=== PATIENT | female | born 1975 | race Caucasian/White ===

== ENCOUNTER 2022-06-27 16:08 | Outpatient (REF) | payer BC, OTHER, SELFPAY ==
[2022-07-01 14:39] LABS: H Pylori Breath Test Negative (Negative)
== END 2022-06-27 16:09 | disposition home or self-care (01) ==
LOC: HO.LNP 16:08
PROVIDERS: Visit Provider Physician Assistant
DX: E66.01 Morbid (severe) obesity due to excess calories (principal); I10 Essential (primary) hypertension; Z98.84 Bariatric surgery status
CPT/HCPCS: 83013

== ENCOUNTER 2022-07-09 13:30 | Outpatient (REF) | payer BC, OTHER, SELFPAY ==
[2022-07-09 13:55] LABS: MANUAL DIFF FLAG NO
[2022-07-09 14:53] LABS: Basophils Absolute Auto 0.1 X10*3/uL (0.0-0.2); Basophils Percent Auto 0.5 % (0-2); Eosinophils Absolute Auto 0.2 X10*3/uL (0.0-0.4); Eosinophils Percent Auto 1.5 % (0-4); Hematocrit 39.5 % (37.0-47.0); Hemoglobin 12.6 g/dl (12.0-16.0); Imm Gran Abs Auto 0.06 X10*3/uL (0.00-0.03); Imm Gran Pct Auto 0.5 % (0.0-0.4); Lymphocytes Absolute Auto 3.4 X10*3/uL (1.2-4.9); Lymphocytes Percent Auto 30.6 % (20-40); Mean Corpuscular HGB Conc 31.9 g/dl (31.0-35.0); Mean Corpuscular Hemoglobin 27.9 pg (27.0-33.0); Mean Corpuscular Volume 87.4 fL (80.0-98.0); Mean Platelet Volume 9.4 fL (9.4-12.3); Monocytes Absolute Auto 0.5 X10*3/uL (0.1-1.2); Monocytes Percent Auto 4.1 % (2-11); Neutrophils Percent Auto 62.8 % (45-73); Platelet Count 345 X10*3/uL (160-400); Red Blood Count 4.52 X10*6/uL (4.20-5.50); Red Cell Distribution Width 13.7 % (11.0-16.0); White Blood Count 11.1 X10*3/uL (4.8-10.8)
[2022-07-09 14:56] LABS: Estimated Average Glucose 103 mg/dL; Hemoglobin A1c % 5.2 %
[2022-07-09 15:01] LABS: Alanine Aminotransferase 21 U/L (0-31); Albumin Level 4.3 g/dL (3.5-5.0); Alkaline Phosphatase 75 U/L (39-117); Anion Gap 16 (12-20); Aspartate Amino Transferase 15 U/L (5-31); Bilirubin Total 0.4 mg/dL (0.0-1.0); Blood Urea Nitrogen 14 mg/dL (9-16); C Reactive Protein 1.48 mg/dL (< or = 0.50); Calcium 9.4 mg/dL (8.4-10.2); Carbon Dioxide 25 mmol/L (22-29); Chloride 104 mmol/L (96-108); Cholesterol 208 mg/dL; Estimated Glomerular Filt Rate > 60; Glucose Random 91 mg/dL (60-115); HDL Cholesterol 44 mg/dL; Iron 85 mcg/dL (30-160); LDL Cholesterol Calculated 125 mg/dl; Percent Iron Saturation 23 % (15-50); Potassium 4.5 mmol/L (3.3-5.1); Sodium 140 mmol/L (135-145); Total Iron Binding Capacity 367 mcg/dL (228-428); Triglycerides 197 mg/dL; Unsaturated Iron Binding 282 ug/dL
[2022-07-09 15:30] LABS: Ferritin 115 ng/mL (10-250); TSH reflex Free T4 1.65 uIU/mL (0.32-4.0); Vitamin D 25-OH Total 23.3 ng/mL (>30)
[2022-07-09 15:32] LABS: Folate 5.4 ng/mL (> or = 4.0); Insulin 15 uU/mL (2-29); Vitamin B12 332 pg/mL (200-900)
[2022-07-10 10:46] LABS: Calcium (PTHI) 9.4 mg/dL (8.6-10.2); PTHI 42 pg/mL (16-77)
[2022-07-12 06:02] LABS: Zinc 83 mcg/dL (60-130)
[2022-07-12 14:11] LABS: Vitamin B1 10 nmol/L (8-30)
[2022-07-14 23:32] LABS: Vitamin A 53 mcg/dL (38-98)
== END 2022-07-09 13:31 | disposition home or self-care (01) ==
LOC: HO.LAB 13:30
PROVIDERS: Visit Provider Physician Assistant
DX: E66.01 Morbid (severe) obesity due to excess calories (principal); I10 Essential (primary) hypertension; Z98.84 Bariatric surgery status
CPT/HCPCS: 36415; 80053; 80061; 82306; 82607; 82728; 82746; 83036; 83525; 83540; 83970; 84425; 84443; 84590; 84630; 85025; 86140

== ENCOUNTER → 2022-07-12 15:12 | Outpatient (REF) | payer BC, OTHER, SELFPAY ==
--- NOTE | ~2022-07-12 | XR_ITS ---
EXAMINATION: XR CHEST CLINICAL INFORMATION: Morbid /severe obesity COMPARISON: None TECHNIQUE: 2 views of the chest were obtained. FINDINGS: No significant abnormality is noted involving the heart, lungs, mediastinum, bony thorax or soft tissues. XR/XR chest 2V IMPRESSION: Unremarkable chest examination.
--- NOTE | 2022-07-12 15:15 | ECG_ITS ---
Test Reason : obesity Blood Pressure : / mmHG Vent. Rate : 071 BPM Atrial Rate : 071 BPM P-R Int : 156 ms QRS Dur : 144 ms QT Int : 418 ms P-R-T Axes : 042 006 106 degrees QTc Int : 454 ms Normal sinus rhythm Left bundle branch block Abnormal ECG No previous ECGs available Referred By: Liza Banerjee Electronically Signed By:LEATHA BALDWIN MD
== END ==
LOC: HO.CARD 15:12
PROVIDERS: Visit Provider Physician Assistant
DX: I10 Essential (primary) hypertension (principal); E66.01 Morbid (severe) obesity due to excess calories; Z98.84 Bariatric surgery status
CPT/HCPCS: 71046; 93005

== ENCOUNTER → 2022-07-24 13:00 | Outpatient (BNVA) | payer BC, OTHER, SELFPAY | PROVIDERS: PCP Internal Medicine; Visit Provider Counselor Mental Health | DX: F31.30 Bipolar disorder, current episode depressed, mild or moderate severity, unspecified (principal); E66.01 Morbid (severe) obesity due to excess calories | CPT/HCPCS: 90791 ==

== ENCOUNTER → 2022-08-03 11:18 | Outpatient (BNVA) | payer BC, SELFPAY | PROVIDERS: PCP Internal Medicine; Visit Provider Dietitian, Registered | DX: E66.01 Morbid (severe) obesity due to excess calories (principal) | CPT/HCPCS: 97802 ==

== ENCOUNTER → 2022-08-09 07:04 | Outpatient (REF) | payer BC, OTHER, SELFPAY ==
--- NOTE | 2022-08-09 07:09 | CA_ITS ---
Transthoracic Echocardiogram Patient (Last, First, Middle): Sandra Oscar, Gender: Female Date of : 1975 Age: 47 Procedure Date: 08/09/2022 Procedure Type: Transthoracic Echocardiogram Location: OP Height: 157.48 cm Weight: 102.06 kg BSA: 2.01 m2 Heart Rate: bpm BP: 115 / 70 mmHg Statistics Teacher: TO Referring MD: Liza Banerjee PA-C Gas Singer: Erasmo Forbes MD Symptoms: I44.7 - Left bundle-branch block, unspecified Study Quality: Fair/Contrast ECG Rhythm: Sinus Conclusions: - 1. Moderate LV systolic dysfunction with LVEF of 35-40% with normal diastolic filling pattern 2. Normal cardiac valvular Doppler 3. Normal RV systolic pressure 4. No pericardial effusion Findings Procedure Information Contrast agent, definity, is being given per protocol with complications as noted. The patient experienced back pain from contrast. Left Ventricle Mildly increased left ventricular cavity size. There is normal left ventricular wall thickness. The left ventricular systolic function is moderately decreased. The visually estimated ejection fraction is between 35 40%. There is moderate global hypokinesis. There is paradoxical septal motion consistent with a left bundle branch block. Spectral Doppler is indicative of a normal filling pattern. Right Ventricle Normal right ventricular cavity size and systolic function. Atria The left atrium is likely dilated. Interatrial shunt cannot be excluded. The right atrium is normal in size. Aortic Valve The aortic valve structure and function is likely normal. There is no aortic valve regurgitation. Mitral Valve Normal mitral valve structure and function. There is no mitral valve regurgitation. There is no mitral valve stenosis. Pulmonic Valve The pulmonic valve was not well visualized. Tricuspid Valve Likely normal tricuspid valve structure and function. There is trace tricuspid valve regurgitation. The right ventricular systolic pressure is normal. The right ventricular systolic pressure is 35 mmHg. Normal right atrial pressure. There is no evidence of pulmonary hypertension. Great Vessels All visible segments of the aorta are normal in size. The pulmonary artery was not well visualized. Venous The inferior vena cava is normal in size and collapses greater than 50% with inspiration. Pericardium/Pleural There is no evidence of pericardial effusion. Prior Study Comparison No prior study available for comparison. Measurements 2D Linear Measurements IVSd: 1.04 0.6-0.9/0.6-1.0 cm LVIDd: 5.61 3.9-5.3/4.2-5.9 cm LVIDd Index: 2.79 2.4-3.2/2.2-3.1 cm/m2 LVIDs: 4.69 2.0-3.6 cm LVPWd: 1.00 0.7-1.1 cm LA Diam: 3.80 2.7-3.8/3.0-4.0 cm LAIDs Index: 1.89 1.5-2.3 cm/m2 LV Mass: 281.98 67-162/88-224 g LV Mass Index: 140.29 43-95/49-115 g/m2 LVOT Diam: 2.00 3.0+(-)1.3 cm 2D Systolic Function EF 4C: 39.40 >55% EF 2C: 39.50 >55% EF BiP: 38.30 >55% Mitral Valve MV VTI: 0.39 MV Pk Anton: 1.12 MV Mn Anton: 0.61 MV Pk Grad: 5.00 MV Mn Grad: 2.00 MV Pk E: 0.97 MV PK A: 0.55 MV Decel Time: 236.00 E/A: 1.80 E'Lateral: 9.46 E'Medial: 8.38 E/E' Med: 11.60 E/E' Lat: 10.30 PHT: 69.00 MVA PHT: 3.19 MVA Continuity: 1.65 Decel [place]: 4.12 Aortic Valve AoV Pk Anton: 1.92 AoV Mn Anton: 1.32 AoV VTI: 0.41 AoV Pk Grad: 15.00 Aov Mn Grad: 8.00 NILTON Cont.VTI: 1.59 LVOT LVOT Pk Anton: 0.96 LVOT Mn Anton: 0.58 LVOT VTI: 0.21 LVOT Pk Grad: 4.00 LVOT Mn Grad: 2.00 LVOT Diam: 2.00 LVOT Area: 3.14 Diastolic Function MV Pk E: 0.97 MV Pk A: 0.55 E/A: 1.80 E'Medial: 8.38 E/E' Med: 11.60 E' Laterial: 9.46 E/E' Lat: 10.30 Right Ventricle TAPSE (mm): 25.40 TVS' Anton: 10.80 Tricuspid Valve TR Pk Anton: 2.85 TR Pk Grad: 32.00 RA Press: 3.00 RVSP: 35.00 Great Vessels Aorta Sinus of Valsalva: 3.02 2.0-3.5 cm Ao Asc: 3.50 2.1-3.4 cm Updated in Other Vendor System with Status of Final Erasmo Forbes MD electronically signed on 08/09/2022 3:40:40 PM with status of Final
== END ==
LOC: HO.CARD 07:04
PROVIDERS: Visit Provider Physician Assistant
DX: I44.7 Left bundle-branch block, unspecified (principal); I10 Essential (primary) hypertension; E66.01 Morbid (severe) obesity due to excess calories; G47.33 Obstructive sleep apnea (adult) (pediatric); Z99.89 Dependence on other enabling machines and devices
CPT/HCPCS: 93306; Q9957

== ENCOUNTER → 2022-08-14 15:00 | Outpatient (BNVA) | payer BC, SELFPAY | PROVIDERS: PCP Internal Medicine; Visit Provider Counselor Mental Health | DX: F31.30 Bipolar disorder, current episode depressed, mild or moderate severity, unspecified (principal); E66.01 Morbid (severe) obesity due to excess calories; Z98.84 Bariatric surgery status | CPT/HCPCS: 90832 ==

== ENCOUNTER → 2022-08-30 08:50 | Outpatient (REF) | payer BC, SELFPAY ==
--- NOTE | ~2022-08-30 | NM_ITS ---
Myocardial perfusion study Indication: Abnormal EKG, preoperative cardiovascular risk stratification Technique: The patient was brought in for a Lexiscan perfusion study on 08/30/2022. Patient performed low-level exercise and was injected 0.4 mg of Lexiscan intravenously. Within a minute of injection, 30 mCi of sestamibi was given intravenously. Images were obtained using the SPECT gamma camera interlaced with the gating device. Images were obtained in supine position. Resting perfusion study was performed on 09/03/2022. Patient was administered 30 mCi of sestamibi intravenously at rest. Images were then obtained in supine position. Images obtained with and without CT attenuation. Total DLP 155 mGy-cm. Images were processed with the software and compared side to side in short axis, horizontal long axis and vertical long axis views. Findings: The stress perfusion study showed non attenuated images show mildly reduced uptake in the anterior, anteroseptal as well as anterolateral and lateral wall of the LV myocardium. No wall uptake is suboptimal due to the obscured by subdiaphragmatic uptake attenuation corrected images show mildly reduced uptake in the anterior, septal wall of the LV myocardium. Inferolateral wall.. There is mildly reduced uptake in the apex of the LV myocardium. In the inferior wall uptake is suboptimal.. The gated study shows reduced LV systolic function with calculated LVEF of 44%. LV cavity is mildly to moderately dilated size. The gated study shows normal wall thickening and contraction of segments with dyssynchrony of septal contraction pattern. Resting study shows non attenuated images show improved uptake in the anterior, septum as well as the anterolateral wall of the LV myocardium. Attenuation corrected images show normal to reduced.. Gating at rest reveals normal systolic wall motion with ejection fraction at 31%. The findings are consistent with possible reversible defect of the anterior, septal and anterolateral wall on non attenuated images moderately images is suboptimal especially inferior wall uptake due to subdiaphragmatic interference. NM/NM bernardo perf SPECT rest & str Impression: 1. Myocardial perfusion imaging study shows possible LAD territory ischemia, although with low confidence of interpretation 2. Gated LVEF is 44% with stress and 31% at rest 3. Transient ischemic dilatation not obvious but LV cavity is dilated EKG is nondiagnostic for ischemia
--- NOTE | 2022-08-30 08:53 | CA_ITS ---
Acquisition Time: 2022-08-30 09:06:24 Total Exercise Time: 00:02:00 Test Indications: Abnormal ECG Medications: METOPRLOLO SERTRALINE Protocol: LEXISCAN Max HR: 108 BPM 62% of Pred: 172 BPM Max BP: 122/082 mmHG Max Work Load: 1.0 METS Pharmacological stress test with Lexiscan injection, while sitting and slowly moving legs, without anginal symptoms, without arrythmia, with normotensive response to injection, with nondiagnostic EKG for ischemia. Nuclear images pending. Test reviewed with Dr Zuniga. Referred By: Liza Banerjee Overread By: CALEB NAM
== END ==
LOC: HO.CARD 08:50
PROVIDERS: Visit Provider Physician Assistant
DX: I44.7 Left bundle-branch block, unspecified (principal); E66.01 Morbid (severe) obesity due to excess calories; G47.33 Obstructive sleep apnea (adult) (pediatric); I10 Essential (primary) hypertension; Z99.89 Dependence on other enabling machines and devices
CPT/HCPCS: 78452; 93017; A9500; J0280; J2785

== ENCOUNTER 2022-09-12 08:04 | Outpatient (REF) | payer BC, SELFPAY ==
--- NOTE | ~2022-09-12 | FL_ITS ---
EXAMINATION: FL UPPER GI SERIES CLINICAL INFORMATION: Bariatric service evaluation, E 66.01. Candidate for gastric bypass. Prior history gastric band performed at outside institution, 2008. COMPARISON: None TECHNIQUE: Upper GI series is performed using fluoroscopic evaluation in addition to multiple fluoroscopic spot views. The patient is imaged both upright and prone and using both thick and thin barium sulfate along with effervescent granules. Fluoroscopy time: 2.6 minutes DAP: 54.48 Gycm2 Fluoroscopic spot images: 33 FINDINGS: The 2 fluoroscopic spot views demonstrate gastric lap band left epigastrium. The band is horizontally oriented with Phi angle approximately 90 degrees. No visible kinking or defect in the tubing. On initial swallowing, prompt transit of barium through the gastric band occurs without any delay. Esophageal motility appears normal. No tertiary contractions. No obstruction or stricture or ulceration. No hiatal hernia or gastroesophageal reflux. The stomach shows no thickened folds or ulcer crater or outlet obstruction. The duodenal bulb is pliable and without ulcer crater or scarring. The post bulbar duodenum the jejunal mucosal pattern are unremarkable. FL/FL upper GI w air IMPRESSION: -Status post prior gastric lap band with horizontal oriented band suggesting slippage. -Prompt transit of barium through the gastric band without any delay. -Normal esophagus. No hiatal hernia or gastroesophageal reflux. -No ulceration or scarring. No gastric outlet obstruction.
--- NOTE | ~2022-09-12 | US_ITS ---
EXAMINATION: US COMPLETE ABDOMEN WITH LIVER ELASTOGRAPHY CLINICAL INFORMATION: Obesity COMPARISON: None. TECHNIQUE: Real-time imaging of the abdominal viscera. Noninvasive ultrasound liver fibrosis assessment is performed using Shell ElastPQ point quantification shear wave elastography (2D-SWE) with a C5-2 MHz transducer. Multiple elastography samples are obtained. FINDINGS: PANCREAS: Normal. ABDOMINAL AORTA: The proximal, middle, and distal aortic segments are normal in caliber. INFERIOR VENA CAVA: Visualized portions are normal. LIVER: Enlarged echogenic liver. The liver is normal in contour. No focal lesion or intrahepatic biliary duct dilatation. The right lobe measures 22 cm in length. The left lobe measures 16 cm in length. Portal flow is normal/hepatopedal Shear wave liver elastography median stiffness is 1.8 m/s (reference: normal median stiffness is 1.3 m/s or less). IQR/median stiffness to assess sampling precision is 0.07 (reference: good quality data set is IQR/median stiffness of 0.15 or less). GALLBLADDER: Normal. The gallbladder is physiologically distended without evidence of stones, sludge, polyps, wall thickening or pericholecystic fluid. COMMON BILE DUCT: Normal in caliber measuring 0.4 cm in diameter. RIGHT KIDNEY: Normal. No hydronephrosis. No renal calculi or focal parenchymal lesions. The kidney measures 12.4 cm in maximum dimension. LEFT KIDNEY: Normal. No hydronephrosis. No renal calculi or focal parenchymal lesions. The kidney measures 12.8 cm in maximum dimension. SPLEEN: Slightly enlarged. The spleen measures 13.3 cm in maximum dimension. FREE FLUID: None. US/US abdomen comp w elastography IMPRESSION: 1. Impression: Enlarged echogenic liver probably representing fatty infiltration. Mild splenomegaly. 2. Liver elastography: Adequate liver sampling. Slightly elevated liver stiffness suggestive of compensated advanced chronic liver disease but need further test for confirmation. REFERENCE: Society of Radiologists in Ultrasound Liver Stiffness Thresholds (2020): LIVER STIFFNESS THRESHOLDS: *Liver Stiffness equal or less than 1.3 m/s: High probability of being normal. *Liver Stiffness less than 1.7 m/s: In the absence of other known clinical signs, rules out compensated advanced chronic liver disease. *Liver Stiffness 1.7-2.1 m/s: Suggestive of compensated advanced chronic liver disease but need further test for confirmation. *Liver Stiffness over 2.1 m/s: Rules in compensated advanced chronic liver disease. *Liver Stiffness over 2.4 m/s: Suggestive of clinically significant portal hypertension. QUALITY OF DATA SET: *IQR/Median value equal or less than 0.15 implies a quality data set. *IQR/Median value over 0.15 implies a poor quality data set. SIGNIFICANT CHANGE FROM PRIOR EXAM: Significant change if liver stiffness measurement is 10% or greater from prior exam. OTHER CONSIDERATIONS: The stage of liver fibrosis may be overestimated in the setting of acute hepatitis, liver inflammation, elevated liver function tests, hepatic vascular congestion, obstructive cholestasis, non-fasting state, and infiltrative diseases such as amyloidosis and lymphoma. In some patients with NAFLD, the liver stiffness thresholds for compensated advanced chronic liver disease may be lower. In causes other than viral hepatitis and NAFLD, liver stiffness thresholds are not well established.
== END 2022-09-12 08:05 | disposition home or self-care (01) ==
LOC: HO.US 08:04
PROVIDERS: Visit Provider Physician Assistant
DX: E66.01 Morbid (severe) obesity due to excess calories (principal); I10 Essential (primary) hypertension; Z98.84 Bariatric surgery status
CPT/HCPCS: 74246; 76705; 76981

== ENCOUNTER → 2022-09-17 13:30 | Outpatient (BNVA) | payer BC, SELFPAY | PROVIDERS: PCP Internal Medicine; Visit Provider Physician Assistant | DX: E66.01 Morbid (severe) obesity due to excess calories (principal) ==

== ENCOUNTER → 2022-10-08 11:00 | Outpatient (BNVA) | payer OTHER, SELFPAY | PROVIDERS: PCP Internal Medicine; Visit Provider Physician Assistant | DX: E66.01 Morbid (severe) obesity due to excess calories (principal) ==

== ENCOUNTER → 2022-10-10 13:37 | Outpatient (BNVA) | payer OTHER, SELFPAY | PROVIDERS: PCP Internal Medicine; Referring Provider Physician Assistant; Visit Provider Internal Medicine | DX: Z13.89 Encounter for screening for other disorder (principal) ==

== ENCOUNTER → 2022-11-26 09:38 | Outpatient (BNVA) | payer OTHER, SELFPAY | PROVIDERS: PCP Internal Medicine; Referring Provider Internal Medicine; Visit Provider Internal Medicine | DX: I42.9 Cardiomyopathy, unspecified (principal); I44.7 Left bundle-branch block, unspecified; E66.01 Morbid (severe) obesity due to excess calories | CPT/HCPCS: 93005 ==

== ENCOUNTER 2023-04-17 08:49 | Outpatient (AMB) | payer MEDICAID, SELFPAY ==
--- NOTE | 2023-04-17 09:28 | MHC.OFFVIS ---
Intake Vital Signs 04/17/23 09:29 Height 5 ft 2 in Weight 229 lb 4.492 oz BMI 41.9 BP 90/70 Blood Pressure Location Lt brachial Position Sitting Pulse 69 Intake Visit Reasons: follow up after MRI Intake Note: follow up Paperboard Boxes Estimator Required: No Accompanied by: Self / Same As Patient Allergies Penicillins Allergy (Intermediate, Verified 04/17/23 09:31) FEVER perflutren Adverse Reaction (Verified 04/17/23 09:31) Back Pain Medication List - Last Reconciled 04/17/23 by Reilly Talavera MD iloperidone (Fanapt) 6 mg PO BID metoprolol succinate ER 25 mg PO DAILY sacubitril-valsartan 24-26 mg (Entresto) 1 tab PO BID 90 days sertraline 200 mg PO DAILY spironolactone 12.5 mg PO DAILY HPI HPI Comments History of Present Illness Details Sandra returns for follow-up. Originally, seen in consultation regarding preoperative risk stratification for weight loss surgery. EKG had shown left bundle-branch block. Then she underwent echocardiogram that showed cardiomyopathy. In terms of symptoms, she does get some shortness of breath with exercise but otherwise okay. History of morbid obesity. Has obstructive sleep apnea. With regard to family history, patient states that her maternal grandmother had amyloidosis but again unclear details. She apparently had a pacemaker too. Since last seen, she has completed a cardiac MRI. Also in for a 2nd opinion [facility]. Apparently was told the same information. No new recommendations per patient. [facility] Surgical History Hx of hysterectomy Hx of laparoscopic gastric banding Hx of tonsillectomy S/P cardiac catheterization Family History Mother Hypertension Father COPD (chronic obstructive pulmonary disease) Clogged artery (heart) Sister Anxiety with depression Obesity Brother Arthritis Brother Obesity Sister No problems noted. Sister No problems noted. Daughter Anxiety with depression Daughter No problems noted. Social History Alcohol intake: current Alcohol intake frequency: holidays/special occasions only Patient Tobacco Use Status: Former Tobacco user Quit Date: 1 MONTH Review of Systems Const Denies weakness ENT Denies dizziness Card Denies chest pain, Denies chest pain with activity, Denies syncope, Denies rapid heart rate, Denies pedal edema, Denies edema, Denies leg edema, Denies lightheadedness, Denies palpitations, Denies dyspnea, Denies dyspnea on exertion and Denies orthopnea Resp Denies cough, Denies dyspnea and Denies dyspnea on exertion GI Denies hematochezia and Denies change in stool character Musc Denies abnormal gait, Denies muscle cramps, Denies muscle weakness, Denies numbness, Denies radiating pain into limb and Denies tingling Neuro Denies abnormal gait, Denies dizziness, Denies syncope, Denies numbness, Denies tingling and Denies weakness Endo Denies palpitations Physical Exam Vital Signs: Last Vital Signs Pulse 69 04/17/23 09:29 BP 90/70 04/17/23 09:29 BMI result Body Mass Index 41.9 Const General: comfortable and no acute distress Orientation/consciousness: patient oriented x3 HEENT Other: Unremarkable Head: Yes normal to inspection Neck Neck: Yes normal visual inspection Chest Chest palpation & inspection: normal inspection of the chest Resp Auscultation: clear to auscultation bilaterally Cardio Palpation: normal PMI Heart sounds: S1 normal heart sound present, S2 normal heart sound present, no gallops, no murmurs and no rubs GI Palpation (GI): Soft to palpation Back/Spine/Pelvis Other: unremarkable Skin General skin exam: no rashes or lesions noted Neuro General: patient oriented x3 Extrem General: Yes normal to inspection Psych Mental Status: mental status grossly normal Assessment & Plan Assessment & Plan (1) Cardiomyopathy: Code(s): I42.9 - Cardiomyopathy, unspecified (2) LBBB (left bundle branch block): Code(s): I44.7 - Left bundle-branch block, unspecified (3) Morbid obesity: Code(s): E66.01 - Morbid (severe) obesity due to excess calories (4) Preoperative cardiovascular examination: Code(s): Z01.810 - Encounter for preprocedural cardiovascular examination Plan Cardiac data reviewed. Echocardiogram with LVEF of 35-40%. Moderate global hypokinesis. No significant valvular issues. Cardiac catheterization shows normal coronaries. Cardiac MRI with LVEF of 40%. No significant delayed enhancement patterns. RVEF 54%. No significant valvular issues. Thought to be nonischemic cardiomyopathy. Findings discussed in detail. She has some shortness of breath with activity but otherwise generally stable in no evidence of volume overload. Continue current medical regimen including beta-blockers, Entresto, spironolactone. Can check some labs. With regard to bariatric surgery, she already has lowish blood pressures. If she indeed does lose significant amount of weight from the bariatric surgery, then blood pressure could go substantially lower. In that case, may have to stop all cardiac medications. We discussed about these issues today. If still interested, can possibly proceed as intermediate cardiac risk. We will see her back in about 6 months time. If any interim concerns, she will contact us. Orders: Orders B Type Natriuretic Peptide Today I42.9 - Cardiomyopathy, unspecified Coding Level of Care Code Est Pt Level 4 (94934) Diagnoses Cardiomyopathy I42.9 LBBB (left bundle branch block) I44.7 Morbid obesity E66.01 Preoperative cardiovascular examination Z01.810
[2023-04-17 09:29] VITALS: BP 90/70; PULSE 69; BMI 41.9
== END 2023-04-17 09:51 | disposition home or self-care (01) ==
PROVIDERS: PCP Internal Medicine; Visit Provider Internal Medicine
DX: I42.9 Cardiomyopathy, unspecified (principal); I44.7 Left bundle-branch block, unspecified; E66.01 Morbid (severe) obesity due to excess calories; Z01.810 Encounter for preprocedural cardiovascular examination
CPT/HCPCS: 99214

== ENCOUNTER → 2023-04-17 08:49 | Outpatient (BNVA) | payer MEDICAID, SELFPAY | PROVIDERS: PCP Internal Medicine; Visit Provider Internal Medicine ==

== ENCOUNTER → 2023-05-30 12:40 | Outpatient (REF) | payer MEDICAID, SELFPAY ==
--- NOTE | 2023-05-30 12:42 | HM_ITS ---
* Total monitoring time about 3 days. * Underlying rhythm is sinus. Average ventricular rate 85/Min. Range 57 to 157/Min. * About 22% of the time, rate > 100/Min. * Very rare supraventricular ectopy. * No significant pauses or AV blocks. * No diary events. MTDD
== END ==
LOC: HO.CARD 12:40
PROVIDERS: PCP Internal Medicine; Visit Provider Internal Medicine
DX: I44.7 Left bundle-branch block, unspecified (principal); E66.01 Morbid (severe) obesity due to excess calories
CPT/HCPCS: 93242; 99212

== ENCOUNTER → 2023-05-30 12:42 | Outpatient (BNV) | payer MEDICAID, SELFPAY | PROVIDERS: PCP Internal Medicine; Visit Provider Internal Medicine | DX: I47.1 Supraventricular tachycardia (principal) | CPT/HCPCS: 93244 ==

== ENCOUNTER 2023-05-30 12:55 | Outpatient (AMB) | payer MEDICAID, SELFPAY ==
--- NOTE | 2023-05-30 13:49 | A.OFFVIS_ITS ---
Intake VS Expanded 05/30/23 13:58 Height 5 ft 2 in Weight 230 lb 3.2 oz BMI 42.1 BP 146/69 H Blood Pressure Location Rt brachial Blood Pressure Position Sitting Pulse 83 Pulse Source Pulse Oximeter Temp 97.8 F Temperature Source Tympanic Pulse Oximetry 95 Oxygen Delivery Method Room Air Body Fat 110.0 Body Fat Percentage 47.8 Free Fat Mass 120.2 Muscle Mass 114.0 Visceral Mass 15.0 Water Mass 85.6 BMR 1,705 Intake Visit Reasons: (OV) F/U SWL Allergies Penicillins Allergy (Intermediate, Verified 05/30/23 13:56) FEVER perflutren Adverse Reaction (Verified 05/30/23 13:56) Back Pain Medication List - Last Reconciled 05/30/23 by Liza Banerjee PA-C iloperidone (Fanapt) 6 mg PO BID metoprolol succinate ER 12.5 mg PO DAILY milnacipran (Savella) 25 mg PO BID sacubitril-valsartan 24-26 mg (Entresto) 1 tab PO BID 90 days sertraline 200 mg PO DAILY spironolactone 12.5 mg PO DAILY HPI HPI Comments History of Present Illness Details [facility] follow up, CADDIE weight of 232.9 lbs in May 2022, last appt Sep 2022 at 218 lbs. Meal plan - wants to restart. 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 Wakes at 7:30 am bed at 12 pm. 8am Coffee - 2 cups with unjury protien powder and and 4 oz Lactaid - drink throughout the day. skips lunch cauliflower puffs 6pm - dinner, 8 oz porkchop 8oz vegetables. Electrolyte drink no food after dinner Exericse - not cleared by cardiology yet. Pre op work up completed as follows: [facility] classes - appts? ? - 07/24, 08/14? - not cleared, next appt Oct 02 - pt cancelled appt - states that she doesn't want the appt, Liza is making me RD appts? - cleared H pylori - negative Labs? -done CXR -normal ECG - LBBB, ECHO done - 35- 40% EF, Cardiac stress test 08/30, normal results ---- cards appt on Oct 10. ULS - fatty liver UGI - gastric band slippage, no obstruction or delay in emptying. No HH or reflux ? Dr Talavera on 04/17/23 --With regard to bariatric surgery, she already has lowish blood pressures.? If she indeed does lose significant amount of weight from the bariatric surgery, then blood pressure could go substantially lower.? In that case, may have to stop all cardiac medications.? We discussed about these issues today.? If still interested, can possibly proceed as intermediate cardiac risk. Pt is wearing a Holitor monitor starting today for 3 days, ordered by Dr Talavera. We will see her back in about 6 months time. [facility], [facility] Surgical History Hx of hysterectomy Hx of laparoscopic gastric banding Hx of tonsillectomy S/P cardiac catheterization Family History Mother Hypertension Father COPD (chronic obstructive pulmonary disease) Clogged artery (heart) Sister Anxiety with depression Obesity Brother Arthritis Brother Obesity Sister No problems noted. Sister No problems noted. Daughter Anxiety with depression Daughter No problems noted. Social History Alcohol intake: current Alcohol intake frequency: holidays/special occasions only Patient Tobacco Use Status: Former Tobacco user Quit Date: 1 MONTH Physical Exam Vital Signs: Last Vital Signs Temp 97.8 F 05/30/23 13:58 Pulse 83 05/30/23 13:58 BP 146/69 H 05/30/23 13:58 Pulse Ox 95 05/30/23 13:58 Oxygen Delivery Method Room Air 05/30/23 13:58 BMI result Body Mass Index 42.1 Assessment & Plan Assessment & Plan (1) Morbid obesity: Code(s): E66.01 - Morbid (severe) obesity due to excess calories Plan: Needs to go to bed earlier - to get 8 hours per night 8am - 8 oz coffee with unjury powder 11 am - yogurt with 1/2 berries 2:30 pm - shake 6:30 pm - 6 oz and 6 oz Stop electrolyte drinks Does not have cardiac clearance for exercise yet, wearing Holter for next 3 days. Will have appts with Kristal again, patient needs nutrition reminders and support. Patient is morbidly obese and is not considered stable at this time. I spent 30 minutes in total with patient reviewing/updating records, examining the patient and counseling the patient on weight management as detailed above. Next appt with me in 3 weeks (2) Fibromyalgia: Code(s): M79.7 - Fibromyalgia (3) Hx of laparoscopic gastric banding: Comment: 2007 ROWENA Code(s): Z98.84 - Bariatric surgery status (4) LBBB (left bundle branch block): Code(s): I44.7 - Left bundle-branch block, unspecified (5) ADORE on CPAP: Code(s): G47.33 - Obstructive sleep apnea (adult) (pediatric); Z99.89 - Dependence on other enabling machines and devices (6) HTN (hypertension), benign: Code(s): I10 - Essential (primary) hypertension (7) Bipolar 1 disorder: Code(s): F31.9 - Bipolar disorder, unspecified (8) Cardiomyopathy: Code(s): I42.9 - Cardiomyopathy, unspecified Orders: Orders Vitamin B12 and Folate Today E66.01 - Morbid (severe) obesity due to excess calories, G47.33 - Obstructive sleep apnea (adult) (pediatric), I10 - Essential (primary) hypertension, I42.9 - Cardiomyopathy, unspecified, M79.7 - Fibromyalgia, Z98.84 - Bariatric surgery status, Z99.89 - Dependence on other enabling machines and devices Comprehensive Met. Panel Today E66.01 - Morbid (severe) obesity due to excess calories, G47.33 - Obstructive sleep apnea (adult) (pediatric), I10 - Essential (primary) hypertension, I42.9 - Cardiomyopathy, unspecified, M79.7 - Fibromyalgia, Z98.84 - Bariatric surgery status, Z99.89 - Dependence on other enabling machines and devices C Reactive Protein Today E66.01 - Morbid (severe) obesity due to excess calories, G47.33 - Obstructive sleep apnea (adult) (pediatric), I10 - Essential (primary) hypertension, I42.9 - Cardiomyopathy, unspecified, M79.7 - Fibromyalgia, Z98.84 - Bariatric surgery status, Z99.89 - Dependence on other enabling machines and devices Ferritin Today E66.01 - Morbid (severe) obesity due to excess calories, G47.33 - Obstructive sleep apnea (adult) (pediatric), I10 - Essential (primary) hypertension, I42.9 - Cardiomyopathy, unspecified, M79.7 - Fibromyalgia, Z98.84 - Bariatric surgery status, Z99.89 - Dependence on other enabling machines and devices Hemoglobin A1c Today E66.01 - Morbid (severe) obesity due to excess calories, G47.33 - Obstructive sleep apnea (adult) (pediatric), I10 - Essential (primary) hypertension, I42.9 - Cardiomyopathy, unspecified, M79.7 - Fibromyalgia, Z98.84 - Bariatric surgery status, Z99.89 - Dependence on other enabling machines and devices Insulin Today E66.01 - Morbid (severe) obesity due to excess calories, G47.33 - Obstructive sleep apnea (adult) (pediatric), I10 - Essential (primary) hypertension, I42.9 - Cardiomyopathy, unspecified, M79.7 - Fibromyalgia, Z98.84 - Bariatric surgery status, Z99.89 - Dependence on other enabling machines and devices IRON PROFILE Today E66.01 - Morbid (severe) obesity due to excess calories, G47.33 - Obstructive sleep apnea (adult) (pediatric), I10 - Essential (primary) hypertension, I42.9 - Cardiomyopathy, unspecified, M79.7 - Fibromyalgia, Z98.84 - Bariatric surgery status, Z99.89 - Dependence on other enabling machines and devices Lipid Panel Today E66.01 - Morbid (severe) obesity due to excess calories, G47.33 - Obstructive sleep apnea (adult) (pediatric), I10 - Essential (primary) hypertension, I42.9 - Cardiomyopathy, unspecified, M79.7 - Fibromyalgia, Z98.84 - Bariatric surgery status, Z99.89 - Dependence on other enabling machines and devices PTHI Today E66.01 - Morbid (severe) obesity due to excess calories, G47.33 - Obstructive sleep apnea (adult) (pediatric), I10 - Essential (primary) hypertension, I42.9 - Cardiomyopathy, unspecified, M79.7 - Fibromyalgia, Z98.84 - Bariatric surgery status, Z99.89 - Dependence on other enabling machines and devices TSH reflex Free T4 Today E66.01 - Morbid (severe) obesity due to excess calories, G47.33 - Obstructive sleep apnea (adult) (pediatric), I10 - Essential (primary) hypertension, I42.9 - Cardiomyopathy, unspecified, M79.7 - Fibromyalgia, Z98.84 - Bariatric surgery status, Z99.89 - Dependence on other enabling machines and devices Vitamin A Today E66.01 - Morbid (severe) obesity due to excess calories, G47.33 - Obstructive sleep apnea (adult) (pediatric), I10 - Essential (primary) hypertension, I42.9 - Cardiomyopathy, unspecified, M79.7 - Fibromyalgia, Z98.84 - Bariatric surgery status, Z99.89 - Dependence on other enabling machines and devices Vitamin B1 Today E66.01 - Morbid (severe) obesity due to excess calories, G47.33 - Obstructive sleep apnea (adult) (pediatric), I10 - Essential (primary) hypertension, I42.9 - Cardiomyopathy, unspecified, M79.7 - Fibromyalgia, Z98.84 - Bariatric surgery status, Z99.89 - Dependence on other enabling machines and devices Vitamin D 25-OH Total Today E66.01 - Morbid (severe) obesity due to excess calories, G47.33 - Obstructive sleep apnea (adult) (pediatric), I10 - Essential (primary) hypertension, I42.9 - Cardiomyopathy, unspecified, M79.7 - Fibromyalgia, Z98.84 - Bariatric surgery status, Z99.89 - Dependence on other enabling machines and devices Zinc Today E66.01 - Morbid (severe) obesity due to excess calories, G47.33 - Obstructive sleep apnea (adult) (pediatric), I10 - Essential (primary) hypertension, I42.9 - Cardiomyopathy, unspecified, M79.7 - Fibromyalgia, Z98.84 - Bariatric surgery status, Z99.89 - Dependence on other enabling machines and devices Complete Blood Count Auto Diff Today E66.01 - Morbid (severe) obesity due to excess calories, G47.33 - Obstructive sleep apnea (adult) (pediatric), I10 - Essential (primary) hypertension, I42.9 - Cardiomyopathy, unspecified, M79.7 - Fibromyalgia, Z98.84 - Bariatric surgery status, Z99.89 - Dependence on other enabling machines and devices Referrals Behavioral Health Referral E66.01 - Morbid (severe) obesity due to excess calories, G47.33 - Obstructive sleep apnea (adult) (pediatric), I10 - Essential (primary) hypertension, I42.9 - Cardiomyopathy, unspecified, M79.7 - Fibromyalgia, Z98.84 - Bariatric surgery status, Z99.89 - Dependence on other enabling machines and devices Nutrition/Dietitian Referral E66.01 - Morbid (severe) obesity due to excess calories, G47.33 - Obstructive sleep apnea (adult) (pediatric), I10 - Essential (primary) hypertension, I42.9 - Cardiomyopathy, unspecified, M79.7 - Fi bromyalgia, Z98.84 - Bariatric surgery status, Z99.89 - Dependence on other enabling machines and devices Coding Level of Care Code Est Pt Level 4 (17664) Diagnoses Morbid obesity E66.01 Fibromyalgia M79.7 Hx of laparoscopic gastric banding Z98.84 LBBB (left bundle branch block) I44.7 ADORE on CPAP G47.33; Z99.89 HTN (hypertension), benign I10 Bipolar 1 disorder F31.9 Cardiomyopathy I42.9
[2023-05-30 13:58] VITALS: BP 146/69; PULSE 83; TEMP 36.6; O2SAT 95; BMI 42.1
== END 2023-05-30 14:52 | disposition home or self-care (01) ==
PROVIDERS: PCP Internal Medicine; Visit Provider Physician Assistant
DX: E66.01 Morbid (severe) obesity due to excess calories (principal); M79.7 Fibromyalgia; Z98.84 Bariatric surgery status; I44.7 Left bundle-branch block, unspecified; G47.33 Obstructive sleep apnea (adult) (pediatric); Z99.89 Dependence on other enabling machines and devices; I10 Essential (primary) hypertension; F31.9 Bipolar disorder, unspecified; I42.9 Cardiomyopathy, unspecified
CPT/HCPCS: 99214

== ENCOUNTER 2023-06-04 11:08 | Outpatient (REF) | payer MEDICAID, SELFPAY ==
[2023-06-04 11:34] LABS: MANUAL DIFF FLAG NO
[2023-06-04 11:36] LABS: Basophils Absolute Auto 0.1 X10*3/uL (0.0-0.2); Basophils Percent Auto 0.6 % (0-2); Eosinophils Absolute Auto 0.1 X10*3/uL (0.0-0.4); Eosinophils Percent Auto 1.4 % (0-4); Hematocrit 40.9 % (37.0-47.0); Hemoglobin 13.6 g/dl (12.0-16.0); Imm Gran Abs Auto 0.07 X10*3/uL (0.00-0.03); Imm Gran Pct Auto 0.7 % (0.0-0.4); Lymphocytes Absolute Auto 3.5 X10*3/uL (1.2-4.9); Lymphocytes Percent Auto 33.6 % (20-40); Mean Corpuscular HGB Conc 33.3 g/dl (31.0-35.0); Mean Corpuscular Hemoglobin 28.9 pg (27.0-33.0); Mean Platelet Volume 8.9 fL (9.4-12.3); Monocytes Absolute Auto 0.5 X10*3/uL (0.1-1.2); Monocytes Percent Auto 4.5 % (2-11); Neutrophils Absolute Auto 6.1 x10*3/uL (2.0-8.3); Neutrophils Percent Auto 59.2 % (45-73); Platelet Count 339 X10*3/uL (160-400); Red Cell Distribution Width 14.1 % (11.0-16.0); White Blood Count 10.3 X10*3/uL (4.8-10.8)
[2023-06-04 12:02] LABS: Alanine Aminotransferase 20 U/L (0-31); Albumin Level 4.7 g/dL (3.5-5.0); Alkaline Phosphatase 84 U/L (39-117); Anion Gap 13 (12-20); Aspartate Amino Transferase 15 U/L (5-31); Bilirubin Total 0.5 mg/dL (0.0-1.0); Blood Urea Nitrogen 19 mg/dL (9-16); C Reactive Protein 1.12 mg/dL (< or = 0.50); Calcium 10.2 mg/dL (8.4-10.2); Carbon Dioxide 23 mmol/L (22-29); Chloride 106 mmol/L (96-108); Cholesterol 267 mg/dL (<200); Estimated Glomerular Filt Rate > 60; Glucose Random 120 mg/dL (60-115); HDL Cholesterol 48 mg/dL (>40); Iron 120 mcg/dL (30-160); LDL Cholesterol Calculated 145 mg/dL (<100); Percent Iron Saturation 34 % (15-50); Potassium 4.9 mmol/L (3.3-5.1); Sodium 137 mmol/L (135-145); Total Iron Binding Capacity 355 mcg/dL (228-428); Total Protein 8.2 g/dL (6.5-8.0); Triglycerides 372 mg/dL (<150); Unsaturated Iron Binding 235 ug/dL
[2023-06-04 12:17] LABS: Ferritin 145 ng/mL (10-250); Insulin 32 uU/mL (2-29); TSH reflex Free T4 1.52 uIU/mL (0.32-4.0); Vitamin D 25-OH Total 38.7 ng/mL (>30)
[2023-06-04 12:29] LABS: Estimated Average Glucose 103 mg/dL; Hemoglobin A1c % 5.2 % (<6.0)
[2023-06-04 12:32] LABS: Folate 5.9 ng/mL (> or = 4.0); Vitamin B12 604 pg/mL (200-900)
[2023-06-05 15:23] LABS: Calcium (PTHI) 9.7 mg/dL (8.6-10.2); PTHI 46 pg/mL (16-77)
[2023-06-07 16:33] LABS: Zinc 77 mcg/dL (60-130)
[2023-06-08 13:19] LABS: Vitamin B1 13 nmol/L (8-30)
[2023-06-12 08:54] LABS: Vitamin A 74 mcg/dL (38-98)
== END 2023-06-04 11:09 | disposition home or self-care (01) ==
LOC: HO.LAB 11:08
PROVIDERS: PCP Internal Medicine; Visit Provider Physician Assistant
DX: E66.01 Morbid (severe) obesity due to excess calories (principal); G47.33 Obstructive sleep apnea (adult) (pediatric); I10 Essential (primary) hypertension; I42.9 Cardiomyopathy, unspecified; M79.7 Fibromyalgia; Z98.84 Bariatric surgery status; Z99.89 Dependence on other enabling machines and devices
CPT/HCPCS: 36415; 80053; 80061; 82306; 82607; 82728; 82746; 83036; 83525; 83540; 83970; 84425; 84443; 84590; 84630; 85025; 86140

== ENCOUNTER 2023-06-06 10:51 | Outpatient (AMB) | payer MEDICAID, SELFPAY ==
--- NOTE | 2023-06-06 11:03 | MHC.OFFVIS ---
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 Originally, seen in consultation regarding preoperative risk stratification for weight loss surgery. EKG had shown left bundle-branch block. Subsequently, she underwent entire workup including echocardiogram, cardiac catheterization as well as cardiac MRI. No major cardiac symptoms. Shortness of breath seems to be at baseline. Some sensations of erratic heart rates and for that she underwent Holter monitor. Otherwise, she has morbid obesity and obstructive sleep apnea. Still contemplating weight loss surgery but not performed yet. With regard to family history, patient states that her maternal grandmother had amyloidosis but again unclear details. She apparently had a pacemaker too. She also had 2nd opinion [facility]. Apparently was told the same information. No new recommendations per patient. [facility] Surgical History S/P cardiac catheterization Hx of laparoscopic gastric banding Hx of hysterectomy Hx of tonsillectomy Family History Mother Hypertension Father COPD (chronic obstructive pulmonary disease) Clogged artery (heart) Sister Anxiety with depression Obesity Brother Arthritis Brother Obesity Sister No problems noted. Sister No problems noted. Daughter Anxiety with depression Daughter No problems noted. Social History Alcohol intake: current Alcohol intake frequency: holidays/special occasions only Patient Tobacco Use Status: Former Tobacco user Quit Date: 1 MONTH Review of Systems Const Denies weakness ENT Denies dizziness Card Denies chest pain, Denies chest pain with activity, Denies syncope, Denies rapid heart rate, Denies pedal edema, Denies edema, Denies leg edema, Denies lightheadedness, Denies palpitations, Denies dyspnea, Denies dyspnea on exertion and Denies orthopnea Resp Denies cough, Denies dyspnea and Denies dyspnea on exertion GI Denies hematochezia and Denies change in stool character Musc Denies abnormal gait, Denies muscle cramps, Denies muscle weakness, Denies numbness, Denies radiating pain into limb and Denies tingling Neuro Denies abnormal gait, Denies dizziness, Denies syncope, Denies numbness, Denies tingling and Denies weakness Endo Denies palpitations Physical Exam Vital Signs: Last Vital Signs Pulse 90 06/06/23 11:04 BP 110/68 06/06/23 11:04 BMI result Body Mass Index 41.1 Const General: comfortable and no acute distress Orientation/consciousness: patient oriented x3 HEENT Other: Unremarkable Head: Yes normal to inspection Neck Neck: Yes normal visual inspection Chest Chest palpation & inspection: normal inspection of the chest Resp Auscultation: clear to auscultation bilaterally Cardio Palpation: normal PMI Heart sounds: S1 normal heart sound present, S2 normal heart sound present, no gallops, no murmurs and no rubs GI Palpation (GI): Soft to palpation Back/Spine/Pelvis Other: unremarkable Skin General skin exam: no rashes or lesions noted Neuro General: patient oriented x3 Extrem General: Yes normal to inspection Psych Mental Status: mental status grossly normal Assessment & Plan Assessment & Plan (1) Cardiomyopathy: Code(s): I42.9 - Cardiomyopathy, unspecified Qualifiers: Cardiomyopathy type: other Qualified Code(s): I42.8 - Other cardiomyopathies (2) LBBB (left bundle branch block): Code(s): I44.7 - Left bundle-branch block, unspecified (3) Morbid obesity: Code(s): E66.01 - Morbid (severe) obesity due to excess calories (4) Preoperative cardiovascular examination: Code(s): Z01.810 - Encounter for preprocedural cardiovascular examination Plan Pertinent data reviewed. Echocardiogram with LVEF of 35-40%. Moderate global hypokinesis. No significant valvular issues. Cardiac catheterization shows normal coronaries. Cardiac MRI with LVEF of 40%. No significant delayed enhancement patterns. RVEF 54%. No significant valvular issues. Thought to be nonischemic cardiomyopathy. Holter monitor shows underlying sinus rhythm with an average rate of 85/Min. Around 22% the time, rate > 100/Min. This might be related to obesity/deconditioning. She is doing okay on the current medications. Can continue same regimen including metoprolol ER, Entresto, spironolactone. There is no evidence of volume overload and can hold off on diuretics. With regard to bariatric surgery, intermediate cardiac risk. Her blood pressure has had lowish readings at times and if she loses substantial amount of weight post procedure, then may start running low blood pressures. In that situation, may have to cut back or stop her cardiac medications. We discussed about this last time as well as today. Otherwise, follow-up in 6 months. She will call us with any ongoing concerns. Coding Level of Care Code Est Pt Level 4 (72635) Diagnoses Other cardiomyopathy I42.8 Cardiomyopathy type: other LBBB (left bundle branch block) I44.7 Morbid obesity E66.01 Preoperative cardiovascular examination Z01.810
[2023-06-06 11:04] VITALS: BP 110/68; PULSE 90; BMI 41.1
== END 2023-06-06 11:25 | disposition home or self-care (01) ==
PROVIDERS: PCP Internal Medicine; Visit Provider Internal Medicine
DX: I42.8 Other cardiomyopathies (principal); I44.7 Left bundle-branch block, unspecified; E66.01 Morbid (severe) obesity due to excess calories; Z01.810 Encounter for preprocedural cardiovascular examination
CPT/HCPCS: 99214

== ENCOUNTER → 2023-06-06 10:51 | Outpatient (BNVA) | payer MEDICAID, SELFPAY | PROVIDERS: PCP Internal Medicine; Visit Provider Internal Medicine | DX: Z01.810 Encounter for preprocedural cardiovascular examination (principal); I42.8 Other cardiomyopathies; I44.7 Left bundle-branch block, unspecified; E66.01 Morbid (severe) obesity due to excess calories; Z68.41 Body mass index [BMI] 40.0-44.9, adult | CPT/HCPCS: 99212 ==

== ENCOUNTER → 2023-06-12 11:58 | Outpatient (BNVA) | payer MEDICAID, SELFPAY | PROVIDERS: PCP Internal Medicine; Visit Provider Dietitian, Registered | DX: Z01.818 Encounter for other preprocedural examination (principal); E66.01 Morbid (severe) obesity due to excess calories; Z71.3 Dietary counseling and surveillance | CPT/HCPCS: 97803 ==

== ENCOUNTER → 2023-11-28 09:15 | Outpatient (BNVA) | payer MEDICAID, SELFPAY | PROVIDERS: PCP Internal Medicine; Visit Provider Physician Assistant Surgical ==

== ENCOUNTER 2023-12-13 07:52 | Outpatient (AMB) | payer OTHER, SELFPAY ==
--- NOTE | 2023-12-13 11:53 | MHC.OFFVISWM ---
Intake Intake Visit Reasons: TV Re-Est SWL BMI 40.1 *SEE COMMENTS* Allergies Penicillins Allergy (Intermediate, Verified 12/13/23 11:53) FEVER perflutren Adverse Reaction (Verified 11/28/23 09:44) Back Pain Medication List - Last Reconciled 12/13/23 by William Barrios MD gabapentin 300 mg PO TID iloperidone (Fanapt) 6 mg PO BID metoprolol succinate ER 12.5 mg PO DAILY sacubitril-valsartan 24-26 mg (Entresto) 1 tab PO BID 90 days sertraline 200 mg PO DAILY spironolactone 12.5 mg (1/2 x 25 mg) PO DAILY 90 days HPI TV Re-Est SWL BMI 40.1 *SEE COMMENTS* HPI Details Start time: 11.33am, End time: 12.33pm ?I spent 40 minutes speaking with the patient on the phone plus an additional 20 minutes reviewing and updating records for a total of 60 minutes HPI Comments History of Present Illness Details Previous weight loss efforts: lap band. Has persistent dysphagia and vomiting and band is slipped Wakes up: 7am, Sleeps: 11pm Breakfast: One scoop of Unjury in coffee Lunch: 12pm (vegetables, humus, cottage cheese) Dinner: 6pm (steak, chicken, fish) Snacks: 3pm (cottage cheese, carrots) Exercise: has a treadmill Fluids: Coffee (2 cups/day black), tea: occasionally, soda: none, juice: 2/wk, ETOH: none I reviewed extensive previous work-up for her heart, RD appts, abdominal US, UGI, CXR PFSH Surgical History S/P cardiac catheterization Hx of laparoscopic gastric banding Hx of hysterectomy Hx of tonsillectomy Family History Mother Hypertension Father COPD (chronic obstructive pulmonary disease) Clogged artery (heart) Sister Anxiety with depression Obesity Brother Arthritis Brother Obesity Sister No problems noted. Sister No problems noted. Daughter Anxiety with depression Daughter No problems noted. Social History Alcohol intake: current Alcohol intake frequency: holidays/special occasions only Patient Tobacco Use Status: Former Tobacco user Quit Date: 1 MONTH Assessment & Plan Assessment & Plan (1) Morbid obesity: Code(s): E66.01 - Morbid (severe) obesity due to excess calories Plan: 1.? Plan for lap band removal and sleeve gastrectomy. If diaphragmatic or ventral hernias are present at time of surgery, these will be repaired laparoscopically as well. Risks and complications were discussed in detail including possible conversion to an open procedure, anastomotic leak, bleeding requiring transfusion, small bowel obstruction, , DVT and pulmonary embolism, cardiac, or pulmonary complications, as alf complications such as anastomotic ulcer, insufficient weight loss and vitamin deficiencies. I emphasized the importance of close follow-up, adherence to instructions and good communication. 2. Nutritional counseling. Start with 2 UNJURY protein shakes (HALF scoop EACH in 8oz low fat unsweetened almond milk) at 8am-10am and 11am-1pm, 1 protein bar (CELEBRATE protein bars, buy at [facility]) at 2pm-4pm, dinner at 5pm (5 forks of protein and 5 forks of salad/vegetables), one more protein bar after dinner at 7pm-9pm and another HALF protein bar at 10pm-11pm if hungry. So you do 2 protein shakes, 2 to 2.5 protein bars and one meal per day. Meal to include lean meat (beef, fish, pork, turkey, chicken), or brit[place] virgin islander yogurt, or egg whites, or beans with a salad with olive oil and fruits (berries, pears, apples, kiwi). Avoid salt, breads, potatoes, rice, pasta, desserts. 3. Each shake would be drunk slowly, like coffee in a period of 2 hours. 4. Cut each bar in 4 pieces and eat each piece in 30min ?to make each bar last 2 hours. 5. I emphasized the importance of measuring accurately the food portion and measure it when serving the food in plate 6. The meal portions include 5 full-size forks of meat and 5 full-size forks of salad. You always eat the meat portion but you can replace up to 5 forks for salad/vegetables with rice, potatoes or pasta, or a fruit ?if you like. The less you do it the better weight loss will be. 7. One full-size fork is what it can be scooped on the fork without falling aside and not what can be bit with the fork. Use regular forks like those you find in a typical restaurant. 8.? Please send me weight measurements tomorrow 12/14/23 and then once a week. Always include your diet and exercise plan. 9. Start treadmill with an incline of 0.0 and speed of 2.5. Increase incline by 1 every 3 min to a max incline of 6.0, stay 3min at 6.0 and then return to 0.0 and repeat same steps until calorie goal is met. Goal is to burn 2000 calories per week on exercise, which means either 300 calories daily, or 400 calories 5 days per week, or 500 calories 4 days per week, or 650 calories 3 days per week. 10. Goal is to lose at least 1.5-2lbs per week 11. Goal to lose 10% of your weight before surgery, which is about 24lbs. Ultimate weight goal: 200lbs before surgery, or below that 12. Please follow the diet plan exactly without any change. If you don't like something about the plan or you feel hungry you need to communicate with me so I can help you revise the plan. You should not change the plan yourself. Orders: Orders Lipid Panel Today E66.01 - Morbid (severe) obesity due to excess calories, I10 - Essential (primary) hypertension, I42.9 - Cardiomyopathy, unspecified IRON PROFILE Today E66.01 - Morbid (severe) obesity due to excess calories, I10 - Essential (primary) hypertension, I42.9 - Cardiomyopathy, unspecified Vitamin B12 and Folate Today E66.01 - Morbid (severe) obesity due to excess calories, I10 - Essential (primary) hypertension, I42.9 - Cardiomyopathy, unspecified Zinc Today E66.01 - Morbid (severe) obesity due to excess calories, I10 - Essential (primary) hypertension, I42.9 - Cardiomyopathy, unspecified TSH reflex Free T4 Today E66.01 - Morbid (severe) obesity due to excess calories, I10 - Essential (primary) hypertension, I42.9 - Cardiomyopathy, unspecified Ferritin Today E66.01 - Morbid (severe) obesity due to excess calories, I10 - Essential (primary) hypertension, I42.9 - Cardiomyopathy, unspecified Vitamin D 25-OH Total Today E66.01 - Morbid (severe) obesity due to excess calories, I10 - Essential (primary) hypertension, I42.9 - Cardiomyopathy, unspecified XR chest 2V Today E66.01 - Morbid (severe) obesity due to excess calories, I10 - Essential (primary) hypertension, I42.9 - Cardiomyopathy, unspecified Insulin Today E66.01 - Morbid (severe) obesity due to excess calories, I10 - Essential (primary) hypertension, I42.9 - Cardiomyopathy, unspecified Hemoglobin A1c Today E66.01 - Morbid (severe) obesity due to excess calories, I10 - Essential (primary) hypertension, I42.9 - Cardiomyopathy, unspecified Complete Blood Count Auto Diff Today E66.01 - Morbid (severe) obesity due to excess calories, I10 - Essential (primary) hypertension, I42.9 - Cardiomyopathy, unspecified Comprehensive Met. Panel Today E66.01 - Morbid (severe) obesity due to excess calories, I10 - Essential (primary) hypertension, I42.9 - Cardiomyopathy, unspecified C Reactive Protein Today E66.01 - Morbid (severe) obesity due to excess calories, I10 - Essential (primary) hypertension, I42.9 - Cardiomyopathy, unspecified Vitamin B1 Today E66.01 - Morbid (severe) obesity due to excess calories, I10 - Essential (primary) hypertension, I42.9 - Cardiomyopathy, unspecified Vitamin A Today E66.01 - Morbid (severe) obesity due to excess calories, I10 - Essential (primary) hypertension, I42.9 - Cardiomyopathy, unspecified Referrals Behavioral Health Referral E66.01 - Morbid (severe) obesity due to excess calories, I10 - Essential (primary) hypertension, I42.9 - Cardiomyopathy, unspecified Telehealth Telehealth Location of provider rendering services: practice address Location of patient: address on file Patient Identification confirmed using: Name, : Yes Telehealth method: voice only Patient verbally consented to treatment: Yes Patient verbally consented to billing insurance company: Yes Patient informed of any privacy concerns related to visit: Yes Minutes spent on Phone/Video with Pt.: 60 Coding Level of Care Code Tele New Pt Level 5 (55289) Diagnoses Morbid obesity E66.01 Time Spent (min) 60
== END 2023-12-13 12:34 | disposition home or self-care (01) ==
PROVIDERS: PCP Internal Medicine; Visit Provider Surgery
DX: E66.01 Morbid (severe) obesity due to excess calories (principal)
CPT/HCPCS: 99205

== ENCOUNTER → 2023-12-13 07:52 | Outpatient (BNVA) | payer OTHER, SELFPAY | PROVIDERS: PCP Internal Medicine; Visit Provider Surgery ==

== ENCOUNTER 2024-01-01 13:45 | Outpatient (AMB) | payer OTHER, SELFPAY ==
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
== END 2024-01-01 13:54 | disposition home or self-care (01) ==
LOC: HO.HBST 13:45
PROVIDERS: PCP Internal Medicine; Visit Provider Counselor Mental Health
DX: F31.30 Bipolar disorder, current episode depressed, mild or moderate severity, unspecified (principal); E66.01 Morbid (severe) obesity due to excess calories
CPT/HCPCS: 90791

== ENCOUNTER → 2024-01-01 13:45 | Outpatient (BNVA) | payer OTHER, SELFPAY | PROVIDERS: PCP Internal Medicine; Visit Provider Counselor Mental Health ==

== ENCOUNTER 2024-01-07 12:03 | Outpatient (REF) | payer OTHER, SELFPAY ==
[2024-01-07 12:22] LABS: MANUAL DIFF FLAG NO
[2024-01-07 12:56] LABS: Basophils Absolute Auto 0.1 X10*3/uL (0.0-0.2); Basophils Percent Auto 0.7 % (0-2); Eosinophils Absolute Auto 0.1 X10*3/uL (0.0-0.4); Eosinophils Percent Auto 1.2 % (0-4); Hematocrit 36.7 % (37.0-47.0); Imm Gran Abs Auto 0.05 X10*3/uL (0.00-0.03); Imm Gran Pct Auto 0.5 % (0.0-0.4); Lymphocytes Absolute Auto 3.6 X10*3/uL (1.2-4.9); Lymphocytes Percent Auto 34.7 % (20-40); Mean Corpuscular HGB Conc 32.7 g/dl (31.0-35.0); Mean Corpuscular Hemoglobin 28.5 pg (27.0-33.0); Mean Corpuscular Volume 87.2 fL (80.0-98.0); Mean Platelet Volume 9.7 fL (9.4-12.3); Monocytes Absolute Auto 0.4 X10*3/uL (0.1-1.2); Monocytes Percent Auto 4.2 % (2-11); Neutrophils Percent Auto 58.7 % (45-73); Platelet Count 357 X10*3/uL (160-400); Red Blood Count 4.21 X10*6/uL (4.20-5.50); Red Cell Distribution Width 14.2 % (11.0-16.0); White Blood Count 10.3 X10*3/uL (4.8-10.8)
[2024-01-07 13:05] LABS: Estimated Average Glucose 108 mg/dL; Hemoglobin A1c % 5.4 % (<6.0)
[2024-01-07 13:32] LABS: Alanine Aminotransferase 13 U/L (0-31); Albumin Level 4.4 g/dL (3.5-5.0); Alkaline Phosphatase 73 U/L (39-117); Anion Gap 13 (12-20); Aspartate Amino Transferase 13 U/L (5-31); Bilirubin Total 0.5 mg/dL (0.0-1.0); Blood Urea Nitrogen 23 mg/dL (9-16); C Reactive Protein 0.69 mg/dL (< or = 0.50); Calcium 10.1 mg/dL (8.4-10.2); Carbon Dioxide 25 mmol/L (22-29); Chloride 109 mmol/L (96-108); Cholesterol 216 mg/dL (<200); Estimated Glomerular Filt Rate > 60; Glucose Random 89 mg/dL (60-115); HDL Cholesterol 41 mg/dL (>40); Iron 77 mcg/dL (30-160); LDL Cholesterol Calculated 144 mg/dL (<100); Percent Iron Saturation 25 % (15-50); Potassium 4.9 mmol/L (3.3-5.1); Sodium 142 mmol/L (135-145); Total Iron Binding Capacity 304 mcg/dL (228-428); Total Protein 7.8 g/dL (6.5-8.0); Triglycerides 156 mg/dL (<150); Unsaturated Iron Binding 227 ug/dL
[2024-01-07 13:49] LABS: Ferritin 150 ng/mL (10-250); Insulin 9 uU/mL (2-29); TSH reflex Free T4 1.58 uIU/mL (0.32-4.0); Vitamin D 25-OH Total 26.5 ng/mL (>30)
[2024-01-07 14:01] LABS: Folate 15.1 ng/mL (> or = 4.0); Vitamin B12 765 pg/mL (200-900)
[2024-01-10 02:49] LABS: Zinc 89 mcg/dL (60-130)
[2024-01-11 02:09] LABS: Vitamin A 64 mcg/dL (38-98)
[2024-01-12 15:42] LABS: Vitamin B1 12 nmol/L (8-30)
== END 2024-01-07 12:04 | disposition home or self-care (01) ==
LOC: HO.LAB 12:03
PROVIDERS: PCP Internal Medicine; Visit Provider Surgery
DX: E66.01 Morbid (severe) obesity due to excess calories (principal); I10 Essential (primary) hypertension; I42.9 Cardiomyopathy, unspecified
CPT/HCPCS: 36415; 80053; 80061; 82306; 82607; 82728; 82746; 83036; 83525; 83540; 84425; 84443; 84590; 84630; 85025; 86140

== ENCOUNTER 2024-01-07 12:22 | Day surgery (SDC) | payer OTHER, SELFPAY ==
--- NOTE | 2024-01-06 10:20 | P.CONAN_ITS ---
Documented by User: Amelia Man NP 01/06/24 10:23 HPI - Anesthesia Eval Consult details Narrative: 48yo F for Upper Endoscopy Follows [facility] [place] cardiology. Stable at last office visit 05/2023 and Cleared for bariatric surgery. [facility] Active Problems Active Problems: All Active Problems Fibromyalgia (Acute) Preoperative cardiovascular examination (Acute) Cardiomyopathy (Acute) Left ventricular cardiac abnormality (Acute) Bipolar disorder current episode depressed (Acute) LBBB (left bundle branch block) (Acute) ADORE on CPAP (Acute) HTN (hypertension), benign (Acute) Bipolar 1 disorder (Acute) Morbid obesity (Acute) Hx of laparoscopic gastric banding (Acute) Past Medical History Medical History Cardiomyopathy Fibromyalgia Left bundle branch block Bipolar 1 disorder Sleep apnea HTN (hypertension) Family History Family History Mother Hypertension Father COPD (chronic obstructive pulmonary disease) Clogged artery (heart) Sister Anxiety with depression Obesity Brother Arthritis Brother Obesity Sister No problems noted. Sister No problems noted. Daughter Anxiety with depression Daughter No problems noted. Surgical History Surgical History S/P cardiac catheterization Hx of laparoscopic gastric banding Hx of hysterectomy Hx of tonsillectomy Social History Social History Alcohol intake: current Alcohol intake frequency: holidays/special occasions only Patient Tobacco Use Status: Former Tobacco user Quit Date: 1 MONTH Are you DNR?: No Advance Directives: No Advance Directives Information Provided: Yes Nutrition Risks: No Nutritional Risk Meds Allergies Allergy/AdvReac Type Severity Reaction Status Date / Time Penicillins Allergy Intermediate FEVER Verified 01/07/24 12:42 perflutren AdvReac Back Pain Verified 01/07/24 12:42 Home Medications ?Medication ?Instructions ?Recorded ?Confirmed ?Last Taken ?Type sertraline 100 mg tablet 200 mg PO DAILY 06/19/22 01/07/24 Unknown History iloperidone 6 mg tablet (Fanapt) 6 mg PO BID 08/29/22 01/07/24 Unknown History metoprolol succinate 25 mg 12.5 mg PO DAILY 05/30/23 01/07/24 Unknown History tablet,extended release 24 hr gabapentin 300 mg capsule 300 mg PO TID 12/13/23 01/07/24 Unknown History Exam Pertinent Lab Results Pertinent Lab Results: Laboratory Tests 06/04/23 11:25 WBC 10.3 Hgb 13.6 Hct 40.9 Plt Count 339 Sodium 137 Potassium 4.9 Chloride 106 Carbon Dioxide 23 BUN 19 H Creatinine 0.81 Narrative Narrative: Per 05/2023 Cardiac note: Echocardiogram with LVEF of 35-40%. Moderate global hypokinesis. No significant valvular issues. Cardiac catheterization shows normal coronaries. Cardiac MRI with LVEF of 40%. No significant delayed enhancement patterns. RVEF 54%. No significant valvular issues. Thought to be nonischemic cardiomyopathy. Holter monitor shows underlying sinus rhythm with an average rate of 85/Min. Around 22% the time, rate > 100/Min. This might be related to obesity/deconditioning. Assessment and Plan Assessment Anesthesia Assessment: Chart Reviewed Documented by User: Regis Baez MD 01/07/24 13:02 [facility] Past Medical History Medical History Cardiomyopathy Fibromyalgia Left bundle branch block Bipolar 1 disorder Sleep apnea HTN (hypertension) Family History Family History Mother Hypertension Father COPD (chronic obstructive pulmonary disease) Clogged artery (heart) Sister Anxiety with depression Obesity Brother Arthritis Brother Obesity Sister No problems noted. Sister No problems noted. Daughter Anxiety with depression Daughter No problems noted. Family history of problems with anesthesia: No Surgical History Surgical History S/P cardiac catheterization Hx of laparoscopic gastric banding Hx of hysterectomy Hx of tonsillectomy History of Problems with Anesthesia: No Social History Social History Alcohol intake: current Alcohol intake frequency: holidays/special occasions only Patient Tobacco Use Status: Former Tobacco user Quit Date: 1 MONTH Are you DNR?: No Advance Directives: No Advance Directives Information Provided: Yes Nutrition Risks: No Nutritional Risk Meds Allergies Allergy/AdvReac Type Severity Reaction Status Date / Time Penicillins Allergy Intermediate FEVER Verified 01/07/24 12:42 perflutren AdvReac Back Pain Verified 01/07/24 12:42 Home Medications ?Medication ?Instructions ?Recorded ?Confirmed ?Last Taken ?Type sertraline 100 mg tablet 200 mg PO DAILY 06/19/22 01/07/24 Unknown History iloperidone 6 mg tablet (Fanapt) 6 mg PO BID 08/29/22 01/07/24 Unknown History metoprolol succinate 25 mg 12.5 mg PO DAILY 05/30/23 01/07/24 Unknown History tablet,extended release 24 hr gabapentin 300 mg capsule 300 mg PO TID 12/13/23 01/07/24 Unknown History Exam Airway Mallampati Class: III TM Dist: <=3cm Loose/Missing/Broken Teeth: No Heart: rrr Lungs: cta b/l Assessment and Plan Assessment Anesthesia Assessment: Anesthesia Plan Discussed Final Anesthetic Review Family History of Problems with Anesthesia: No History of Problems with Anesthesia: No NPO: Yes ASA Class: III Final Preanesthetic Review: No Changes in Pt Med Stat, Meds/Allgs Chart Reviewed, Consent Obtained/Reviewed and Anes Risks/Benef Reviewed Patient Risk: High Procedure Risk: Intermediate Anesthetic Plan Anesthetic Plan: MAC: Disposition: Standard PACU
[2024-01-07 12:36] VITALS: BMI 38.2
[2024-01-07 13:27] VITALS: BP 115/57; PULSE 61; RESP 18; TEMP 36.7; O2SAT 95
[2024-01-07] MEDS: Lactated Ringers 1,000 ML 80 ML IVCONT (13:29)
--- NOTE | 2024-01-07 13:31 | MHC.SHP ---
Pre-Procedural Eval Section A - 24 Hr Update-Section A only Date of Service: 01/07/24 The patient is an INPATIENT: No The patient has been examined within 24 hours of the surgical procedure. The History & Physical has been completed within 30 days and I have reviewed it.: No Section B - Complete if H&P > 30 days Chief Complaint: Bariatric surgery status Details of Present Illness: Lap band slippage Relevant Family History (Specify if Yes): No Relevant Social History: None Present Medications: None Medical History: No relevant PMH History of Previous Operations: Relevant previous surgery/procedure and date(s) (Laparoscopic gastric band) Allergies: Allergies Allergy/AdvReac Type Severity Reaction Status Date / Time Penicillins Allergy Intermediate FEVER Verified 01/07/24 12:42 perflutren AdvReac Back Pain Verified 01/07/24 12:42 Review of Systems Sugical H&P ROS: Negative: Constitution, Cardiovascular, Respiratory, Neurological, Psychiatric, Hem-Onc, Allergic/Immunologic, Gastrointestinal, Genitourinary, Musculoskeletal, Integumentary, Endocrine and Eyes/Ears/Nose/Throat Exam Surgical H&P Exam: Normal: HEENT, Normal: Heart, Normal: Lungs, Normal: Extremities, Normal: Skin and Normal: Neurological and Significant Findings: Abdomen (LUQ port) Plan Diagnosis/Plan: Unchanged (EGD to assess for lap band slippage and erosion. Risks of bleeding and perforation were discussed with the patient and she is in agreement with the plan.) I have reviewed the history and physical and performed a pertinent physical examination on my patient. No changes have occurred unless specified. Time Spent With Patient Time: Total time managing care of this patient today ____ minutes.
--- NOTE | 2024-01-07 13:33 | P.BOP_ITS ---
Brief Operative Note Date of Service: 01/07/24 Pre-op diagnosis: Lap band slippage Procedure: PREOPERATIVE DIAGNOSIS: Band slippage, s/p lap band POSTOPERATIVE DIAGNOSIS: ?Same as above. Esophagitis grade IV and gastritis PROCEDURE: [id number] with biopsies Surgeon: ?Antwon Barrios M.D.. Ph.D. [employer] Worker: None ? Anesthesia: IV sedation Estimated blood loss: ?Minimal FINDINGS AND PROCEDURE: ? OPERATIVE INDICATIONS: ?The patient is a 48 year old female known to me who underwent a laparoscopic gastric band elsewhere. The patient had poor weight loss so far and recent UGI is suggestive for band slippage. Based on this information I recommended an upper endoscopy to evaluate the patient's symptoms. Risks and complications of the surgery were discussed with the patient in advance particularly the possibility of perforation or bleeding that may require surgical intervention. The patient understood the risks and was in agreement with the plan. ? PROCEDURE: After informed consent was obtained by the patient, the patient was ?transferred to the Operating Room and was placed in the supine position.? After successful induction of IV sedation, a mouth block was inserted and the patient was placed in the left lateral decubitus position. An upper endoscopy was performed next, the oropharynx and esophagus appeared within the normal limits. There was no hiatal hernia. The z-line was irregular with tongues of gastric mucosa protruding to the esophagus in more than 75% of circumference.? The stomach was entered and it appeared to be of normal size. There was no band erosion, ?gastritis and no ulcer. There was gastritis at the mid-body of the stomach. The scope was advanced into the duodenum which appeared to be normal as well. Retroflexion was performed and again no band erosion was seen. At that point the duodenum and the stomach were decompressed and the scope was withdrawn from the patient's mouth. Biopsies were obtained from the duodenum, antrum, mid-body, fundus, JE junction x2 and distal esophagus x2. No bleeding was noted from any of the biopsy sites. The patient was awaken and was transferred in stable condition to the Recovery Room for further care. I was present and performed all steps of the procedure. There were no residents to assist with this case. Antwon Barrios M.D., Ph.D. Surgeon: William Barrios MD Anesthesia: MAC Was an [employer] Worker used for this Procedure?: No Estimated blood loss (mL): 0 IV fluids (mL): 400 Urine output (mL): 0 (No Meng to record output) Pathology: other (1) GE junction x2 2) Distal esophagus x2 3) Gastric fundus x1 4) Antrum x1, 5) mid-body x1, 6) duodenum x1) Condition: stable Disposition: PACU
[2024-01-07 14:40] VITALS: BP 103/53; PULSE 72; RESP 14; TEMP 36.1; O2SAT 93
[2024-01-07 14:55] VITALS: BP 105/57; PULSE 61; RESP 16; TEMP 36.1; O2SAT 99
== END 2024-01-07 15:30 | disposition home or self-care (01) ==
PROVIDERS: PCP Internal Medicine; Visit Provider Surgery
PROC: 0DJ08ZZ Inspection of Upper Intestinal Tract, Via Natural or Artificial Opening Endoscopic (ICD-10-PCS; CPT 43235; principal; 2024-01-07 14:30)
DX: K95.09 Other complications of gastric band procedure (principal); K20.80 Other esophagitis without bleeding; K29.50 Unspecified chronic gastritis without bleeding; K31.89 Other diseases of stomach and duodenum; K22.89 Other specified disease of esophagus; E66.01 Morbid (severe) obesity due to excess calories; Z68.41 Body mass index [BMI] 40.0-44.9, adult; Z98.84 Bariatric surgery status; I10 Essential (primary) hypertension; I42.9 Cardiomyopathy, unspecified; F31.9 Bipolar disorder, unspecified; I44.7 Left bundle-branch block, unspecified; M79.7 Fibromyalgia; G47.33 Obstructive sleep apnea (adult) (pediatric); Z99.89 Dependence on other enabling machines and devices; Z79.899 Other long term (current) drug therapy; Z88.0 Allergy status to penicillin; Z88.8 Allergy status to other drugs, medicaments and biological substances; Z87.891 Personal history of nicotine dependence
CPT/HCPCS: 43239; 88305; 88313; 88342; J2250; J2704

== ENCOUNTER → 2024-01-07 12:22 | Outpatient (BNV) | payer OTHER, SELFPAY | PROVIDERS: PCP Internal Medicine; Visit Provider Surgery | DX: K95.09 Other complications of gastric band procedure (principal); K20.90 Esophagitis, unspecified without bleeding; K29.70 Gastritis, unspecified, without bleeding | CPT/HCPCS: 43239 ==

== ENCOUNTER → 2024-01-10 10:10 | Outpatient (BNVA) | payer OTHER, SELFPAY | PROVIDERS: PCP Internal Medicine; Visit Provider Surgery ==

== ENCOUNTER 2024-01-20 08:13 | Outpatient (AMB) | payer OTHER, SELFPAY ==
--- NOTE | 2024-01-20 09:57 | A.OFFVIS_ITS ---
VS Expanded 01/20/24 10:15 Height 5 ft 2 in Weight 207 lb BMI 37.9 Intake Visit Reasons: TV Follow Up SWL - 1ST Allergies Penicillins Allergy (Intermediate, Verified 01/07/24 12:42) FEVER perflutren Adverse Reaction (Verified 01/07/24 12:42) Back Pain HPI HPI TV Follow Up SWL - 1ST: Details: Start time: 9.51am, End time: 10.21am ?I spent 25 minutes speaking with the patient on the phone plus an additional 5 minutes reviewing and updating records for a total of 30 minutes HPI Comments Details: Overall weight loss: 17.2lbs, or 7.67% TBWL Is doing 2-3 Unjury liquid protein shakes (a dinner (5 forks of protein and 5 forks of salad or vegetables) Exercise: doing treadmill for 300 calories daily (speed 3mph, incline PFSH Medical History (Updated 01/20/24 @ 10:17 by William Barrios MD) Cardiomyopathy Fibromyalgia Left bundle branch block Bipolar 1 disorder Sleep apnea HTN (hypertension) Surgical History S/P cardiac catheterization Hx of laparoscopic gastric banding Hx of hysterectomy Hx of tonsillectomy Family History Mother Hypertension Father COPD (chronic obstructive pulmonary disease) Clogged artery (heart) Sister Anxiety with depression Obesity Brother Arthritis Brother Obesity Sister No problems noted. Sister No problems noted. Daughter Anxiety with depression Daughter No problems noted. Social History Alcohol intake: current Alcohol intake frequency: holidays/special occasions only Patient Tobacco Use Status: Former Tobacco user Quit Date: 1 MONTH Telehealth Telehealth Telehealth Platform: Telephone Location of provider rendering services: practice address Location of patient: address on file Patient Identification confirmed using: Name, : Yes Telehealth method: voice only Patient verbally consented to treatment: Yes Patient verbally consented to billing insurance company: Yes Patient informed of any privacy concerns related to visit: Yes Minutes spent on Phone/Video with Pt.: 30 Assessment & Plan Assessment & Plan (1) Obesity: Code(s): E66.9 - Obesity, unspecified Category: Medical Qualifiers: Obesity type: due to excess calories Obesity classification: adult class 2 (BMI 35 - 39.9) Serious obesity comorbidity presence: with serious comorbidity Body mass index: BMI 38.0-38.9 Qualified Code(s): E66.01 - Morbid (severe) obesity due to excess calories; Z68.38 - Body mass index [BMI] 38.0- 38.9, adult Plan: 1. Change nutritional plan to 2 premade Unjury protein shakes, one powdered Unjury protein shake (HALF scoop in 8oz almond milk) and one meal (5 forks of protein and 5 forks of salad or vegetables) 2. Start treadmill with an incline of 0.0 and speed of 3.0. Increase incline by 1 every 3 min to a max incline of 6.0, stay 3min at 6.0 and then return to 0.0 and repeat same steps until calorie goal is met. Goal is to burn 2000 calories per week on exercise, which means either 300 calories daily. 3. Send me weight measurements weekly on Mondays
[2024-01-20 10:15] VITALS: BMI 37.9
== END 2024-01-20 10:22 | disposition home or self-care (01) ==
LOC: HO.HBS 08:13
PROVIDERS: PCP Internal Medicine; Visit Provider Surgery
DX: E66.01 Morbid (severe) obesity due to excess calories (principal); Z68.38 Body mass index [BMI] 38.0-38.9, adult
CPT/HCPCS: 99214

== ENCOUNTER → 2024-01-20 08:13 | Outpatient (BNVA) | payer OTHER, SELFPAY | PROVIDERS: PCP Internal Medicine; Visit Provider Surgery ==

== ENCOUNTER 2024-02-03 10:20 | Outpatient (REF) | payer OTHER, SELFPAY ==
--- NOTE | ~2024-02-03 | XR_ITS ---
EXAMINATION: XR CHEST CLINICAL INFORMATION: Morbid severe obesity due to excess calories, patient states preoperative chest x-ray. COMPARISON: 07/12/2022 TECHNIQUE: 2 views of the chest were obtained. FINDINGS: There is no gross pneumothorax. Heart size is normal. Dextroscoliosis of the thoracolumbar spine. Small right pleural effusion. Redemonstration of tubing overlying the upper abdomen. Minimal degenerative changes in the thoracic spine. No new focal consolidation to suggest pneumonia. XR/XR chest 2V IMPRESSION: Small right pleural effusion.
[2024-02-03 11:54] LABS: B Type Natriuretic Peptide 43 pg/mL (<100)
[2024-02-03 12:08] LABS: Anion Gap 13 (12-20); Blood Urea Nitrogen 21 mg/dL (9-16); Calcium 9.9 mg/dL (8.4-10.2); Carbon Dioxide 25 mmol/L (22-29); Chloride 107 mmol/L (96-108); Estimated Glomerular Filt Rate > 60; Glucose Random 83 mg/dL (60-115); Potassium 3.8 mmol/L (3.3-5.1); Sodium 141 mmol/L (135-145)
== END 2024-02-03 10:21 | disposition home or self-care (01) ==
LOC: HO.LAB 10:20
PROVIDERS: Internal Medicine; PCP Internal Medicine; Visit Provider Surgery
DX: I42.9 Cardiomyopathy, unspecified (principal); E66.01 Morbid (severe) obesity due to excess calories; I10 Essential (primary) hypertension
CPT/HCPCS: 36415; 71046; 80048; 83880

== ENCOUNTER 2024-02-05 11:21 | Outpatient (AMB) | payer OTHER, SELFPAY ==
--- NOTE | 2024-02-05 13:56 | A.OFFVIS_ITS ---
VS Expanded 02/05/24 14:18 Height 5 ft 2 in Weight 203 lb 5 oz BMI 37.2 Intake Visit Reasons: TV Pre Op LSG 02/13/24 Allergies Penicillins Allergy (Intermediate, Verified 01/07/24 12:42) FEVER perflutren Adverse Reaction (Verified 01/07/24 12:42) Back Pain HPI HPI TV Pre Op LSG 02/13/24: Details: Start time: 81.44pm, End time: 2.32pm spent 43 minutes speaking with the patient on the phone plus an additional 5 minutes reviewing and updating records for a total of 48 minutes HPI Comments Details: Overall weight loss: 20.7lbs, or 9.23% TBWL Is doing on Celebrate Rebuild protein (2 scoops in almond milk), one Unjury shake (1 scoop in almond milk) and one meal Exercise: is doing treadmill for 300 calories x 3-4/wk PFSH Medical History (Updated 02/03/24 @ 13:59 by Safia Colon RN) GERD (gastroesophageal reflux disease) Anxiety Depression Urinary tract infection CHF (congestive heart failure) Cardiomyopathy Fibromyalgia Left bundle branch block Bipolar 1 disorder Sleep apnea HTN (hypertension) Surgical History S/P cardiac catheterization Hx of laparoscopic gastric banding Hx of hysterectomy Hx of tonsillectomy Family History Mother Hypertension Father COPD (chronic obstructive pulmonary disease) Clogged artery (heart) Sister Anxiety with depression Obesity Brother Arthritis Brother Obesity Sister No problems noted. Sister No problems noted. Daughter Anxiety with depression Daughter No problems noted. Social History Are you a primary healthcare recruiter to a significant other at home: No Do you presently have visiting nurse or other home services: No Alcohol intake: current Alcohol intake frequency: holidays/special occasions only Patient Tobacco Use Status: Former Tobacco user Quit Date: 1 MONTH Telehealth Telehealth Telehealth Platform: Telephone Location of provider rendering services: practice address Location of patient: address on file Patient Identification confirmed using: Name, : Yes Telehealth method: voice only Patient verbally consented to treatment: Yes Patient verbally consented to billing insurance company: Yes Patient informed of any privacy concerns related to visit: Yes Minutes spent on Phone/Video with Pt.: 48 Assessment & Plan Assessment & Plan (1) Obesity: Code(s): E66.9 - Obesity, unspecified Category: Medical Qualifiers: Obesity type: due to excess calories Obesity classification: adult class 2 (BMI 35 - 39.9) Serious obesity comorbidity presence: with serious comorbidity Body mass index: BMI 38.0-38.9 Qualified Code(s): E66.01 - Morbid (severe) obesity due to excess calories; Z68.38 - Body mass index [BMI] 38.0- 38.9, adult Plan: 1. Plan for lap sleeve gastrectomy including upper GI endoscopy. All tests has been completed and reviewed and the patient is cleared for the surgery. ?If diaphragmatic or ventral hernias are present at time of surgery, these will be repaired laparoscopically as well. Risks and complications were discussed in detail including possible conversion to an open procedure, anastomotic leak, bleeding requiring transfusion, small bowel obstruction, , DVT and pulmonary embolism, cardiac, or pulmonary complications, as residential complications such as anastomotic ulcer, insufficient weight loss and vitamin deficiencies. I emphasized the importance of close follow-up, adherence to instructions and good communication. So far she has proven to be an excellent communicator and very compliant with all our directions accomplishing a great weight loss. I believe that she is an excellent candidate and she is ready. 2. Preop prescriptions were provided and explained the purpose of each one. Need to be purchased preop. Start Pantoprazole now as you get it from the pharmacy, 1 pill per day. Sucralfate and Zofran are for after surgery as needed. 3. Bowel prep: please do 7 packets ?of Miralax mixing each one with a an 8oz gla ss of water, crystal light, gatorade zero, or propel ?on 02/11/24 and the same amount on 02/12/24. The Miralax you begin with one packet at a time in 8oz water or crystal light, gatorade zero, or propel ?as early in the day as you can and you do them back to back until you finish them. Continue the protein shakes during? the bowel prep. 4. Needs to purchase 1oz medicine cups . 5. Needs to purchase Children's liquid Tylenol for postop pain control. 6. She needs to stop the Gabapentin as of tomorrow 02/06/24. Avoid aspirin, motrin, Advil, Aleve, Ibuprofen, Naproxyn. Tylenol is OK. 7. She needs to purchase the Celebrate 4:1 protein shakes from the hospital's gift shop. 8. Will do basic preop blood work-up any day between tomorrow 02/06/24 and Saturday02/07/24 fasting for 12 hours and is scheduled to see the Anesthesiologist prior to the day of surgery. 9. Importance of adherence to postop folllow-up and recommendations was underscored and she understands that. 10. Stop food and bars as of tomorrow 02/06/24 and continue with one Celebrate REBUILD protein shake (ONE scoop in 8oz almond milk) at 8am-10am, TWO Unjury protein shakes with HALF scoop EACH in 8oz almond milk at 11am-1pm and 2pm-4pm AND TWO Unjury shakes with ONE scoop EACH in 8oz almond milk at 5pm-7pm and at 8pm-10pm 11. No soups, broths or V8 12. The patient's?medical?history has been reviewed and they are considered low risk for post op DVT and therefore DVT prophylaxis is not considered necessary. Travel after surgery was reviewed. The patient has not disclosed any travel plans during the first 30 days after surgery and they have been advised that within the first 30 days after surgery any bus, plane, train or car travel over 2 hours in duration is contraindicated due to the possibility of developing blo od clots from immobility. Any travel, needs to include periods of ambulation of 10 minutes in duration every 2 hours.? Patient was instructed to discuss any plans for travel during this period with their bariatric surgeon.? 13. Please measure your blood pressure daily in the morning. If blood pressure is: Below 120/70: take only the Entresto 121/71 to 130/80: take the Entresto and Spironolactone 131/81 or above: take the Entresto, Spironolactone and Metoprolol 14. Please take at the day of surgery the following medications: Entresto, Spironolactone and Metoprolol based on the parameters above 15. Stop any control pills and don't use them for one month after surgery 16. Absolutely no smoking or vaping, or marijuana until the surgery and for at least the first 4 weeks. Only nicotine patches are allowed. 17. Send me weight measurements on 02/06/24 and then on 02/13/24, the day of surgery before you go to the hospital. 18. Avoid any steroids by mouth for any reason. Let me know if someone prescribes them to you20. These instructions supersede anything else you read in the handbook, anything you watched in videos or classes or you were told by any other provider. If there is any conflict, you follow the above instructions Orders: Orders Hemoglobin A1c Today E66.01 - Morbid (severe) obesity due to excess calories, G47.33 - Obstructive sleep apnea (adult) (pediatric), Z68.38 - Body mass index [BMI] 38.0-38.9, adult, Z99.89 - Dependence on other enabling machines and devices Lipid Panel Today E66.01 - Morbid (severe) obesity due to excess calories, G47.33 - Obstructive sleep apnea (adult) (pediatric), Z68.38 - Body mass index [BMI] 38.0-38.9, adult, Z99.89 - Dependence on other enabling machines and devices Complete Blood Count Auto Diff Today E66.01 - Morbid (severe) obesity due to excess calories, G47.33 - Obstructive sleep apnea (adult) (pediatric), Z68.38 - Body mass index [BMI] 38.0-38.9, adult, Z99.89 - Dependence on other enabling machines and devices Insulin Today E66.01 - Morbid (severe) obesity due to excess calories, G47.33 - Obstructive sleep apnea (adult) (pediatric), Z68.38 - Body mass index [BMI] 38.0-38.9, adult, Z99.89 - Dependence on other enabling machines and devices TSH reflex Free T4 Today E66.01 - Morbid (severe) obesity due to excess calories, G47.33 - Obstructive sleep apnea (adult) (pediatric), Z68.38 - Body mass index [BMI] 38.0-38.9, adult, Z99.89 - Dependence on other enabling machines and devices Type and Screen Today E66.01 - Morbid (severe) obesity due to excess calories, G47.33 - Obstructive sleep apnea (adult) (pediatric), Z68.38 - Body mass index [BMI] 38.0-38.9, adult, Z99.89 - Dependence on other enabling machines and devices Comprehensive Met. Panel Today E66.01 - Morbid (severe) obesity due to excess calories, G47.33 - Obstructive sleep apnea (adult) (pediatric), Z68.38 - Body mass index [BMI] 38.0-38.9, adult, Z99.89 - Dependence on other enabling machines and devices C Reactive Protein Today E66.01 - Morbid (severe) obesity due to excess calories, G47.33 - Obstructive sleep apnea (adult) (pediatric), Z68.38 - Body mass index [BMI] 38.0-38.9, adult, Z99.89 - Dependence on other enabling machines and devices Prothrombin Time INR Today E66.01 - Morbid (severe) obesity due to excess calories, G47.33 - Obstructive sleep apnea (adult) (pediatric), Z68.38 - Body mass index [BMI] 38.0-38.9, adult, Z99.89 - Dependence on other enabling machines and devices Partial Thromboplastin Time Today E66.01 - Morbid (severe) obesity due to excess calories, G47.33 - Obstructive sleep apnea (adult) (pediatric), Z68.38 - Body mass index [BMI] 38.0-38.9, adult, Z99.89 - Dependence on other enabling machines and devices Medications: New ondansetron Only take one every 12 hours as needed if you have nausea 4 mg PO Q12H 20 tabs 0RF nausea and vomiting R11.0 - Nausea polyethylene glycol 3350 (Miralax) Mix each packet with 8oz of water, Crystal light, or Gatorade zero, or Propel and do 7 packets on 02/11/24 and another 7 packets on 02/12/24 17 grams PO DAILY 14 ea 0RF Z01.818 - Encounter for other preprocedural examination
[2024-02-05 14:18] VITALS: BMI 37.2
== END 2024-02-05 14:34 | disposition home or self-care (01) ==
LOC: HO.HBS 11:21
PROVIDERS: PCP Internal Medicine; Visit Provider Surgery
DX: E66.01 Morbid (severe) obesity due to excess calories (principal); Z68.37 Body mass index [BMI] 37.0-37.9, adult
CPT/HCPCS: 99499

== ENCOUNTER → 2024-02-05 11:21 | Outpatient (BNVA) | payer OTHER, SELFPAY | PROVIDERS: PCP Internal Medicine; Visit Provider Surgery ==

== ENCOUNTER 2024-02-06 09:44 | Outpatient (REF) | payer OTHER, SELFPAY ==
[2024-02-06 10:54] LABS: Basophils Percent Auto 0.2 % (0-2); Eosinophils Absolute Auto 0.1 X10*3/uL (0.0-0.4); Eosinophils Percent Auto 1.1 % (0-4); Hematocrit 37.7 % (37.0-47.0); Hemoglobin 12.7 g/dl (12.0-16.0); Imm Gran Abs Auto 0.08 X10*3/uL (0.00-0.03); Lymphocytes Absolute Auto 3.6 X10*3/uL (1.2-4.9); Lymphocytes Percent Auto 44.1 % (20-40); MANUAL DIFF FLAG SCAN; Mean Corpuscular HGB Conc 33.7 g/dl (31.0-35.0); Mean Corpuscular Hemoglobin 28.8 pg (27.0-33.0); Mean Corpuscular Volume 85.5 fL (80.0-98.0); Mean Platelet Volume 9.1 fL (9.4-12.3); Monocytes Absolute Auto 0.3 X10*3/uL (0.1-1.2); Monocytes Percent Auto 3.9 % (2-11); Neutrophils Absolute Auto 4.1 x10*3/uL (2.0-8.3); Neutrophils Percent Auto 49.7 % (45-73); Platelet Count 287 X10*3/uL (160-400); Red Blood Count 4.41 X10*6/uL (4.20-5.50); Red Cell Distribution Width 13.6 % (11.0-16.0); SCAN SMEAR FLAG 1; White Blood Count 8.2 X10*3/uL (4.8-10.8)
[2024-02-06 10:57] LABS: INTERNATIONAL NORM RATIO 0.9 (0.9-1.1); Prothrombin Time 10.9 SEC (11.1-13.3)
[2024-02-06 11:00] LABS: Estimated Average Glucose 108 mg/dL; Hemoglobin A1c % 5.4 % (<6.0); Partial Thromboplastin Time 36.9 SEC (26.0-36.8)
[2024-02-06 11:26] LABS: Alanine Aminotransferase 27 U/L (0-31); Albumin Level 4.4 g/dL (3.5-5.0); Alkaline Phosphatase 82 U/L (39-117); Anion Gap 14 (12-20); Aspartate Amino Transferase 14 U/L (5-31); Bilirubin Total 0.4 mg/dL (0.0-1.0); Blood Urea Nitrogen 21 mg/dL (9-16); C Reactive Protein 0.37 mg/dL (< or = 0.50); Calcium 9.9 mg/dL (8.4-10.2); Carbon Dioxide 25 mmol/L (22-29); Chloride 105 mmol/L (96-108); Cholesterol 197 mg/dL (<200); Estimated Glomerular Filt Rate > 60; Glucose Random 96 mg/dL (60-115); HDL Cholesterol 41 mg/dL (>40); LDL Cholesterol Calculated 107 mg/dL (<100); Potassium 4.2 mmol/L (3.3-5.1); Sodium 140 mmol/L (135-145); Total Protein 7.7 g/dL (6.5-8.0); Triglycerides 245 mg/dL (<150)
[2024-02-06 11:40] LABS: SLIDE REVIEW VERIFIED
[2024-02-06 11:43] LABS: Insulin 17 uU/mL (2-29); TSH reflex Free T4 1.75 uIU/mL (0.32-4.0)
== END 2024-02-06 09:45 | disposition home or self-care (01) ==
LOC: HO.LAB 09:44
PROVIDERS: PCP Internal Medicine; Visit Provider Surgery
DX: E66.01 Morbid (severe) obesity due to excess calories (principal); G47.33 Obstructive sleep apnea (adult) (pediatric); Z68.38 Body mass index [BMI] 38.0-38.9, adult; Z99.89 Dependence on other enabling machines and devices
CPT/HCPCS: 36415; 80053; 80061; 83036; 83525; 84443; 85025; 85610; 85730; 86140

== ENCOUNTER 2024-02-13 08:27 | Inpatient (IN) | payer OTHER, SELFPAY ==
[2024-02-03 14:22] VITALS: BMI 36.9
--- NOTE | 2024-02-04 09:40 | HO.ANESPROP2 ---
HPI - Anesthesia Eval Consult details Narrative: 48yo F for Lap Band Removal, Gastrectomy Sleeve Cardiac cleared 05/2023 - unable to reach patient by phone to ensure no change in cardiac status/symptoms, exercise tolerance. Follows [facility] [place] cardiology for CHF/CMP, on entresto; LBBB PMFSH Active Problems Active Problems: All Active Problems Obesity (Acute) Esophagitis determined by biopsy (Acute) Fibromyalgia (Acute) Preoperative cardiovascular examination (Acute) Cardiomyopathy (Acute) Left ventricular cardiac abnormality (Acute) Bipolar disorder current episode depressed (Acute) LBBB (left bundle branch block) (Acute) ADORE on CPAP (Acute) HTN (hypertension), benign (Acute) Bipolar 1 disorder (Acute) Morbid obesity (Acute) Hx of laparoscopic gastric banding (Acute) Past Medical History Medical History (Updated 02/03/24 @ 13:59 by Safia Colon RN) GERD (gastroesophageal reflux disease) Anxiety Depression Urinary tract infection CHF (congestive heart failure) Cardiomyopathy Fibromyalgia Left bundle branch block Bipolar 1 disorder Sleep apnea HTN (hypertension) Family History Family History Mother Hypertension Father COPD (chronic obstructive pulmonary disease) Clogged artery (heart) Sister Anxiety with depression Obesity Brother Arthritis Brother Obesity Sister No problems noted. Sister No problems noted. Daughter Anxiety with depression Daughter No problems noted. Family history of problems with anesthesia: No Surgical History Surgical History S/P cardiac catheterization Hx of laparoscopic gastric banding Hx of hysterectomy Hx of tonsillectomy History of Problems with Anesthesia: No Social History Social History Are you a primary career consultant to a significant other at home: No Do you presently have visiting nurse or other home services: No Alcohol intake: current Alcohol intake frequency: holidays/special occasions only Patient Tobacco Use Status: Former Tobacco user Quit Date: 1 MONTH Meds Allergies Allergy/AdvReac Type Severity Reaction Status Date / Time Penicillins Allergy Intermediate FEVER Verified 01/07/24 12:42 perflutren AdvReac Back Pain Verified 01/07/24 12:42 Home Medications ?Medication ?Instructions ?Recorded ?Confirmed ?Last Taken ?Type sertraline 100 mg tablet 200 mg PO BEDTIME 06/19/22 02/03/24 Unknown History metoprolol succinate 25 mg 12.5 mg PO BEDTIME 05/30/23 02/03/24 Unknown History tablet,extended release 24 hr gabapentin 300 mg capsule 300 mg PO TID 12/13/23 02/03/24 01/07/24 History calcium citrate 250 mg PO DAILY 02/03/24 02/03/24 Unknown History cyanocobalamin (vitamin B-12) 50 50 mcg PO DAILY 02/03/24 02/03/24 Unknown History mcg tablet (Vitamin B-12) iloperidone 6 mg tablet (Fanapt) 6 mg PO BID 02/03/24 02/03/24 Unknown History nitrofurantoin 1 cap PO BID 02/03/24 02/03/24 Unknown History monohydrate/macrocrystals 100 mg capsule sacubitril 24 mg-valsartan 26 mg 1 tab PO BID 02/03/24 02/03/24 Unknown History tablet (Entresto) spironolactone 25 mg tablet 12.5 mg PO BEDTIME 02/03/24 02/03/24 Unknown History zolpidem 10 mg tablet 10 mg PO BEDTIME 02/03/24 02/03/24 Unknown History Exam Height,Weight and Vital Signs: Height 5 ft 2 in Weight 91.626 kg Pertinent Lab Results Pertinent Lab Results: Laboratory Tests 01/07/24 02/03/24 12:20 10:46 WBC 10.3 Hgb 12.0 Hct 36.7 L Plt Count 357 Sodium 141 Potassium 3.8 D Chloride 107 Carbon Dioxide 25 BUN 21 H Creatinine 0.92 Narrative Narrative: Per 05/2023 cardiac note: Echocardiogram with LVEF of 35-40%. Moderate global hypokinesis. No significant valvular issues. Cardiac catheterization shows normal coronaries. Cardiac MRI with LVEF of 40%. No significant delayed enhancement patterns. RVEF 54%. No significant valvular issues. Thought to be nonischemic cardiomyopathy. Holter monitor shows underlying sinus rhythm with an average rate of 85/Min. Around 22% the time, rate > 100/Min. This might be related to obesity/deconditioning. Assessment and Plan Assessment Anesthesia Assessment: Chart Reviewed Final Anesthetic Review Family History of Problems with Anesthesia: No History of Problems with Anesthesia: No
[2024-02-13] VITALS (13 sets, daily range): BP systolic 116–141; BP diastolic 57–81; PULSE 61–91; RESP 16–20; TEMP 36.1–36.8; O2SAT 93–98
--- OUTSIDE RECORDS SUMMARY | 2024-02-13 08:40 | XMS_ITS | Patient Health Record ---
Author Organization [facility] [place] Address [address] [place], [place] [id number] Care Team Providers Care Licensing And Registration Director Name Role Phone Andre Ryan Primary Care Provider Raffy Schmid Unavailable [phone] Shane CANO, Amira Unavailable Unavailable ALLERGIES Allergen (clinical drug ingredient) Drug/Non Drug Allergy documented on EMR Reaction Allergy Type Onset Date Status Penicillin rash Drug Allergy Active REASON FOR REFERRAL No Information MEDICATIONS Medication SIG (Take, Route, Frequency, Duration) Notes Start Date End Date Status Spironolactone 25 MG TAKE 1/2 TABLET JUAN LY (12.5 MG TOTAL) BY MOUTH Oral for 90 Active Fanapt 6 MG 1 tablet Orally Twic e a day for 30 day(s) Active Vitamin D3 25 MCG (1000 UT) 1 capsule Or ally Once a day for 30 day(s) Active Sertraline HCl 200 MG 1 capsule Orally O nce a day Active Metoprolol Succinate 25 MG 1 capsule Ora lly Once a day for 30 day(s) Active Entresto 24-26 MG 1 tablet Orally Twic e a day for 30 day(s) Active SOCIAL HISTORY Tobacco Use: Social History Observation Description Date Details (start date - stop date) Current Smoker NA - NA Sex Assigned At : Social History Observation Description Sex Assigned At Unknown Tobacco Question Answer Notes Are you a: current smoker How often do you smoke cigarettes? some days, bu t not every day How many cigarettes a day do you smoke? 5 or les s PROBLEMS Problem Type ICD Code Onset Dates Problem Status W/U Status Risk SNOMED Code Notes Problem Obstructive sleep apnea (adult) (pediatric) (G47.33) Active confirmed Obstructive sleep apnea syndrome (disorder) (96157916) Problem Excessive daytime sleepiness (G47.19) Active confirmed 524523160039 Problem Obesity (BMI 30-39.9) (E66.9) Active confirmed 632839485 Problem Chronic systolic congestive heart failure (I50.22) Active confirmed 742008560 Problem Bipolar affective disorder, remission status unspecified (F31.9) Active confirmed 39373866 Problem ADORE (obstructive sleep apnea) (G47.33) Active confirmed 60330927 Problem Primary hypertension (I10) Active confirmed 64844062 Problem Depression, unspecified depression type (F32.A) Active confirmed 43703667 VITAL SIGNS Heart Rate 68 /min 04/17/2023 Respiratory Rate 16 /min 04/17/2023 Blood pressure diastolic 72 mm Hg 04/17/2023 Height 63 in 04/17/2023 Blood pressure systolic 112 mm Hg 04/17/2023 Weight 232 lbs 04/17/2023 BMI 41.09 kg/m2 04/17/2023 Encounters Encounter Location Date Provider Diagnosis [facility] [address] [place], [place] [id number] 04/17/2023 Akbar Norma Obesity (BMI 30-39.9) E66.9 ; Obstructive sleep apnea (adult) (pediatric) G47.33 ; Primary hypertension I10 ; Excessive daytime sleepiness G47.19 ; Hypoxemia R09.02 and Chronic systolic congestive heart failure I50.22 [facility] [address] [place], [place] [id number] 04/12/2023 Raffy Green ASSESSMENTS Encounter Date Diagnosis Assessment Notes Treatment Notes Treatment Clinical Notes 04/17/2023 Obesity (BMI 30-39.9) (ICD-10 - E66.9) Educated about the correction between ADORE and obesity 04/17/2023 Obstructive sleep apnea (adult) (pediatric) (ICD-10 - G47.33) Patient is using her CPAP machine and benefiting from using it, we'll continue on the same settings auto CPAP 10-, CPAP care instructions were provided 04/17/2023 Primary hypertension (ICD-10 - I10) Controlled with metoprolol succinate 25 04/17/2023 Excessive daytime sleepiness (ICD-10 - G47.19) Controlled with CPAP therapy 04/17/2023 Hypoxemia (ICD-10 - R09.02) Overnight pulse oximetry on 11/14/2022: oxygen saturation was above 90 % for 99.8% of the study 04/17/2023 Chronic systolic congestive heart failure (ICD-10 - I50.22) PLAN OF TREATMENT Future Test Test Name Order Date Home sleep study 01/04/2022 Next Appt Details Provider Name:Raffy Brennan ur, 04/20/2024 11:30:00 AM, [address], [address], [place], [place], [id number], Insurance Providers Payer Name Payer Address Payer Phone Subscriber Number Group Number Insured Name Patient Relationship to Insured Coverage Start Date Coverage End Date Medicaid [address] [place] [phone] [id number] Sandra Vicente Self - patient is the insured MEDICAL (GENERAL) HISTORY Medical History History ICD Code Primary hypertension I10 Depression, unspecified depression type F32.A Bipolar affective disorder, remission st atus unspecified F31.9 Obstructive sleep apnea (adult) (pediatr ic) G47.33 Chronic systolic congestive heart failur e I50.22 EF 35-40 % on echo in Jul 2022 Surgical History Surgery Date(Month/Year) Tonsillectomy Hysterectomy Lap band surgery
[2024-02-13] MEDS: Aprepitant 32 MG/4.4 ML VIAL IVPUSH (08:45)
[2024-02-13] MEDS: Lactated Ringers 1,000 ML 999 ML IV (08:56)
--- NOTE | 2024-02-13 10:25 | PC.NURSE ---
pt received 1 liter of fluids in preop
--- NOTE | 2024-02-13 11:37 | PM.OP ---
Brief Operative Note Date of Service: 02/13/24 Pre-op diagnosis: Severe obesity with comorbidities (see below) Post-op diagnosis: same Procedure: PROCEDURE: Esophago-gastroscopy, laparoscopic removal of gastric band and accessories, laparoscopic lysis of adhesions, laparoscopic takedown of gastro-gastric wrap, capsulectomy INDICATIONS: This is a 48 year-old female with a BMI of 41 kg/m2 and associated comorbid conditions as described previously. After appropriate workup and a 21.5 lbs preoperative weight loss or 9.6% TBWL was achieved, the patient was electively scheduled for laparoscopic, possibly open revision of gastric band to sleeve gastrectomy. The risks and complications of the procedure were discussed with the patient in advance, particularly the possibility of ; pulmonary embolism; staple line leak; bleeding; GERD; cardiac, pulmonary, or renal complications; as well as long-term problems such as insufficient weight loss, vitamin deficiency, strictures, or ulcers. The patient understood all the risks, and was in agreement to proceed with surgery. DESCRIPTION OF PROCEDURE: After informed consent was obtained from the patient, the patient was given preoperative antibiotics, and was transferred to the operating room. After successful induction of general anesthesia, a Meng catheter and pneumatic compressive devices were placed on both lower extremities. An upper endoscopy was performed next. The oropharynx and esophagus appeared to be within normal limits. There was a diaphragmatic hernia present of moderate size consistent with the findings of the preoperative upper GI. The stomach was entered. Then after all fluid and air were suctioned and the stomach was fully decompressed, the scope was withdrawn and secured in the mid esophagus. The patient was then prepped and draped in the usual sterile manner, and abdominal access was established at the right upper quadrant with the Parisa technique. A 12 mm blunt port was inserted, and the abdomen was insufflated with CO2 to a pressure of 15 mmHg. Under direct visualization, additional ports were placed, specifically two 5 mm Versi-step ports to the left upper quadrant, and a 5 mm Versi-Step port to the right upper quadrant. 1% lidocained plan was used to infiltrate all port sites as well as all fascia defects. Following that, the patient was placed in a steep reverse Trendelenburg position. An additional 5 mm port was placed to the right flank for the Mediflex retractor that was used to retract the left lobe of the liver. There were extensive adhesions in the abdomen from previous lap band involving the stomach and the undersurface of the left lobe of the liver. Those were lysed completely with the ultrasonic device. The patient has a lap gastric band. It was identified and using the Thunderbeat, the capsule was opened and the band was freed from surrounding tissues. Once it was adequately mobile, it was cut and was removed from the Parisa port along with the intra-abdominal portion of the tubing system. The gastro-gastric wrap was then taken down with the Thunderbeat all the way to the angle of His. The previous Ethibond sutures were identified and were divided. Careful dissection was required to unwrap the stomach completely and restore its normal position. To prevent stricture at the previous band site, the fibrinous capsule was freed anteriorly from the GE junction and it was divided completely. Then a portion of the capsule was completely resected and removed using the Thunderbeat. The gastro-esophageal fat pad was opened with the ultrasonic device (Thunderbeat, Olympus) and the anterior esophagus and hiatus were exposed. The angle of His was opened with the ultrasonic device the fundus of the stomach from any diaphragmatic and splenic attachments. ?An upper endoscopy was performed. There was no narrowing at the GE junction. The scope was easily advanced all the way to the pylorus which was clearly visualized. There was no narrowing anywhere or stomach injury.. At that point the gastroscope was withdrawn from the patient?s mouth while we were decompressing the bowel and the stomach from any remaining air. I looked into the lesser sac to see how the sleeve was situating and it was situating well. There was no bleeding from the staple line, spleen, or short gastric vessels. The Mediflex retractor was removed, and the undersurface of the liver was inspected and there was no bleeding. The patient was placed in supine position. An separate transverse incision was made where the band's port was. Using cautery the subcutaneous tissues were divided until the port was identified. This particular port is not secured with sutures but with hooks. The remaining tubing system was delivered first and then slowly the four hooks were detached from the fascia and the port with tubing system were retrieved intact. I closed the fascial defect of the 12 mm port site with a figure of eight #1 Polysorb suture. Then 30cc Ropivacaine plain with 10 mg of Dexamethasone were used to infiltrate the fascial closure as well as all skin incisions. A total of 7ml Zynrelef was applied in the Parisa wound. At this point, the abdomen was deflated, all ports were removed under direct vision, and no bleeding was noted from any of the port sites. The skin incisions were irrigated with saline and were closed with 4-0 absorbable monofilament sutures. Steri-Strips and OpSites were used to cover all incisions. The patient was extubated and was transferred in stable condition to the recovery room for further care. I was present and performed all galindo parts of the procedure. Mr. Wu was the surgical first assistant. There were no residents to assist with this case. Antwon Barrios MD, PhD, FACS Surgeon: William Barrios MD Anesthesia: GETA, local and other (TAP block and 7ml Zynrelef) Was an Housekeeping/Laundry Supervisor used for this Procedure?: No Housekeeping/Laundry Supervisor: Andre Wu Estimated blood loss (mL): 10 IV fluids (mL): 3,000 Urine output (mL): 400 Pathology: other (Band capsule, gastric band and accessories) Condition: stable Disposition: PACU
--- NOTE | 2024-02-13 11:41 | P.PNGS_ITS ---
Subjective Subjective Date of Service: 02/14/24 Interval history: Feels well. Mild incisional pain. She is tolerating phase 1 bariatric diet Physical Exam 2 Vital Signs: Vital Signs: Last Vital Signs Temp 97 F 02/13/24 08:28 Pulse 61 02/13/24 08:28 Resp 20 02/13/24 08:28 BP 116/75 02/13/24 08:28 Pulse Ox 96 02/13/24 08:28 O2 Del Method Room Air 02/13/24 08:28 BMI result Body Mass Index 36.9 GI: Inspection: Yes normal to inspection, Yes incision (clean, dry and intact) and Yes obesity Palpation (GI): Soft to palpation Extrem: Right lower extremity: normal to inspection (no calf tenderness) L eft lower extremity: normal to inspection (no calf tenderness) Objective Data Active Medications Hydromorphone HCl (Hydromorphone Hcl 0.5 Mg/0.5 Ml Syringe) 0.5 mg IVPUSH Q5M PRN; Protocol PRN Reason: Pain, Severe (Pain Scale 7-10) Stop: 02/13/24 16:04 Lactated Ringer's (Lr) 1,000 mls @ 100 mls/hr IVCONT .Q10H ANDREW Ondansetron HCl (Ondansetron Hcl 4 Mg/2 Ml Vial) 4 mg IVPUSH ONCE PRN PRN Reason: Nausea and Vomiting Stop: 02/13/24 16:04 Labs 02/14/24 05:22 02/14/24 05:22 Procedures Date of Service Date of Service: 02/14/24 Progress Note: A&P Assessment and plan (1) Obesity: Status: Acute Assessment and Plan: s/p lap band removal and accessories, laparoscopic sleeve gastrectomy, lysis of adhesions, diaphragmatic hernia repair and gastropexy Doing well Will check am labs and if OK the patient will be discharged home (2) BMI 37.0-37.9, adult: Status: Inactive (3) ADORE on CPAP: Status: Acute (4) Hx of laparoscopic gastric banding: Status: Inactive (5) HTN (hypertension), benign: Status: Acute (6) Bipolar 1 disorder: Status: Acute (7) Non-ischemic cardiomyopathy: Status: Acute (8) Depression: Status: Acute (9) PTSD (post-traumatic stress disorder): Status: Acute (10) Liver fibrosis: Status: Acute (11) Steatosis, liver: Status: Acute (12) Hepatomegaly: Status: Acute (13) S/P gastric bypass: Status: Deleted Time Spent With Patient Time: Total time managing care of this patient today ____ minutes. Quality Stroke Does the patient have a stroke diagnosis?: No VTE Prior VTE?: No VTE Risk Level:: Surgical - moderate VTE Device Contraindication: N/A - Device Ordered VTE Drug Contraindication: Treatment Not Indicated
--- NOTE | 2024-02-13 15:49 | P.DS_ITS ---
DS: Providers Provider Date of Service: 02/14/24 Date of admission: 02/13/24 08:27 Primary care physician: Andre Ryan MD DS: Diagnosis Discharge Diagnosis (1) Obesity: Status: Acute (2) BMI 37.0-37.9, adult: Status: Inactive (3) MARCUS on CPAP: Status: Acute (4) Hx of laparoscopic gastric banding: Status: Inactive (5) HTN (hypertension), benign: Status: Acute (6) Bipolar 1 disorder: Status: Acute (7) Non-ischemic cardiomyopathy: Status: Acute (8) Depression: Status: Acute (9) PTSD (post-traumatic stress disorder): Status: Acute (10) Liver fibrosis: Status: Acute (11) Steatosis, liver: Status: Acute (12) Hepatomegaly: Status: Acute DS: Summary Hospital Course Hospital Course: ADMITTING DIAGNOSIS: obesity, fibromyalgia, cardiomyopathy, marcus, bipolar, htn, lbbb, depression, anxiety ? DISCHARGE DIAGNOSIS: same, s/p laparoscopic gastric band removal and extensive lysis of adhesions ? PAST SURGICAL HISTORY: gastric band, cardiac catheterization, hysterectomy, tonsillectomy ? PROCEDURE: upper endoscopy, laparoscopic gastric band removal and extensive lysis of adhesions ? DISCHARGE SUMMARY: ? History of Present Illness: ? The patient is a?48 year-old woman with a BMI of?41.1 kg/m2 and associated co- morbidities as described above. The patient had extensive work-up,lost?23.5 lbs preoperatively and was electively scheduled for laparoscopic, possible open gastric band removal and possible sleeve gastrectomy. Risks and complications of the surgery were discussed with the patient in advance, particularly the possibility of , pulmonary embolism, anastomotic leak, bleeding, bowel injury, GERD, cardiac, renal or pulmonary complications. The patient understood all the risks and was in agreement with the surgical plan. ? Hospital Course: ? The patient underwent an uneventful laparoscopic gastric band removal with extensive lysis of adhesions on the day of admission. Postoperatively, the patient was transferred to the surgical floor. The patient received IV A cetaminophen and IV dilaudid for pain control. Patient was started on bariatric phase 1 diet POD #0. On postoperative day one, the patient was feeling well without nausea, vomiting, fevers, or tachycardia. The patient had some mild incisional pain and the abdomen was soft. ? On the morning of postoperative day one, the patient was continued on 1 ounce of water or ice every half hour. During the day, the patient did fairly well, having some incisional pain, but able to ambulate adequately and to tolerate liquids well. ? Since the patient is doing well, we decided that the patient was ready to be discharged. The patient was given instructions to follow-up with me next week and to call my office for any fever over 101, persistent abdominal pain, nausea, vomiting, GERD, symptoms of DVT such as calf tenderness, or leg swelling, or pulmonary embolism such as chest pain or shortness of breath. The patient was also instructed to drink 40-60 ounces of liquids per day using the 1-ounce cups. The patient had been given prescriptions for Tylenol for pain, Zofran prn for nausea, and pantoprazole and carafate previously. The patient was encouraged to ambulate and use the incentive spirometer. The patient was allowed to shower, but no baths, and encouraged to stay active at home. All of these instructions were given to the patient personally. All questions were answered and the patient understood all instructions, the instructions were also given to the patient in print. Time Attestation Total time managing care of this patient today: 25 mintues. Discharge Coordination Time (in mins): 25 Quality: Safe Use of Opioids Does Pt have an Active Cancer Diagnosis on the Problem List?: No Quality: Stroke Does the patient have a stroke diagnosis?: No Physical Exam Vital Signs: Vital Signs: Last Vital Signs Temp 97 F 02/13/24 08:28 Pulse 61 02/13/24 08:28 Resp 20 02/13/24 08:28 BP 116/75 02/13/24 08:28 Pulse Ox 96 02/13/24 08:28 O2 Del Method Room Air 02/13/24 08:28 BMI result Body Mass Index 36.9 DS: Data Data Completed and Pending Pending studies at discharge: Pending at discharge 02/13/24 15:09 Surgical [PTH] Routine Discharge Plan Discharge Anticipated Discharge Date/Time: 02/14/24 10:00 Patient Disposition: Home, Self-Care Discharge Diagnosis: s/p laparoscopic gastric band removal and extensive lysis of adhesions Referrals: Andre Ryan MD [Primary Care Provider] - 1 Week Discharge Medications: Continued sucralfate 100 mg/mL suspension 10 ml PO BID Qty: 600 2RF pantoprazole 40 mg tablet,delayed release (DR/EC) 40 mg PO DAILY Qty: 90 0RF spironolactone 25 mg tablet 12.5 mg PO BEDTIME Vitamin B-12 50 mcg Tablet 50 mcg PO DAILY Fanapt 6 mg tablet 6 mg PO BID sertraline 100 mg tablet 100 mg PO BID calcium citrate 250 mg calcium tablet 250 mg PO DAILY Entresto 24-26 mg tablet 1 tab PO BID zolpidem 10 mg tablet 10 mg PO BEDTIME Discharge Orders: Discharge Order (Routine); Ordered 02/14/24 Ordered By: William Barrios Activity on Discharge: No heavy lifting Stand Alone Forms: Patient Portal Discharge page Print Language: Nepali Care Plan Goals: weight loss Health Concerns: oibesity Plan of Treatment: No tub baths, sex or returning to work until discussed at first post op appointment. No exercise, alcohol, tobacco or illegal drug use. Continue to use incentive spirometer hourly while awake. Walk in home for 5- 10 minutes every 2 hours during the first week. Follow all instructions in the bariatric handbook and call with any questions.Discharge Instructions 1. Please call your doctor or come back to the emergency room should any new symptoms arise. 2. You will receive a courtesy call from [facility] 24-48 hours after discharge. 3. Activity: abstain from alcohol, practice limited stair climbing, no bending, no driving, no exercise, no illicit substances, no lifting, no sex, no tub bath, no work. 4. Diet: continue as discussed with Dr. Barrios. 5. Dressing Change/Wound Care: Your incision is covered by clear bandages and guaze underneath. If the area is tender, you may apply an ice pack for short intervals (no more than 20 minutes on, followed by at least 20 minutes off). Do not apply heat. Do not use creams, lotions, or topical antibiotics unless instructed to do so by your surgeon. These can cause infection or allergic reaction. 6. Call your doctor if: - Your temperature exceeds 101.5 F - You experience excessive pain or swelling - You have an unexpected reaction to medication - You have excessive bleeding - You experience continued vomiting/nausea - Your incision begins to separate - Your incision shows signs of infection such as increased redness, swelling, excessive pain, heat, or drainage (light blood or clear fluid is normal) 7. General instructions: No lifting greater than 5 lbs for 1 week and not more than 20lbs the next 3?weeks. No driving until seen at the office in 5-7 days after surgery. If you do not move your bowels in the next 2 days, please tell?Dr. Barrios. Please walk around your home every hour or two to prevent blood clots from forming in your legs. You do not need to wake from sleeping to walk. Please sleep in a bed or couch to prevent kinking at the hips and knees. Please take your incentive spirometer (your lung online services manager) home with you and use it for the next few days to prevent pneumonia. You may shower, no hot tubs, baths or swimming pools.?Please follow the post op diet instructions you are?given by Dr Barrios? and text me daily at 5-6pm for an update.?If you have any issues or concerns or questions please communicate this to him via text.? ?Do not take anything without first discussing with Dr Barrios. Please make sure you are consuming at least 40 ounces of fluids per day starting the?day AFTER your discharge from the hospital. Do not hesitate to contact the office with any questions at . The patient's medical history has been reviewed and they are considered low risk for post op DVT and therefore DVT prophylaxis is not considered necessary. Travel after surgery was reviewed. The patient has not disclosed any travel plans during the first 30 days after surgery and they have been advised that within the first 30 days after surgery any bus, plane, train or car travel over 2 hours in duration is contraindicated due to the possibility of developing blood clots from immobility. Any travel, needs to include periods of ambulation of 10 minutes in duration every 2 hours.? The patient was instructed to discuss any plans for travel during this period with their bariatric surgeon. Assessment: stable s/p laparoscopic gastric band removal and extensive lysis of adhesions
[2024-02-13 16:06] LABS: Hematocrit 33.8 % (37.0-47.0); Hemoglobin 11.3 g/dl (12.0-16.0)
[2024-02-13] MEDS: HYDROmorphone HCl 0.5 MG/0.5 ML SYRINGE IVPUSH (16:14)
[2024-02-13 16:17] LABS: Anion Gap 17 (12-20); Blood Urea Nitrogen 16 mg/dL (9-16); Calcium 9.4 mg/dL (8.4-10.2); Carbon Dioxide 20 mmol/L (22-29); Chloride 106 mmol/L (96-108); Creatinine Clr Calc Pharmacy 83.3; Estimated Glomerular Filt Rate > 60; Glucose Random 167 mg/dL (60-115); Sodium 139 mmol/L (135-145)
--- NOTE | 2024-02-13 18:17 | PHA.MEDREC ---
Pharmacy Consult ? Medication Reconciliation Pharmacy has reviewed the medication reconciliation complete by nursing. Spoke with patient regarding dosing and frequency of some medications and made adjustments..
[2024-02-13] MEDS: Lactated Ringers 1,000 ML 100 ML IVCONT (18:28)
[2024-02-13] MEDS: 0.9 % Sodium Chloride Flush 3 ML SYRINGE IVFLUSH (18:28)
[2024-02-13] MEDS: Sacubitril/Valsartan 24/26 1 TAB TABLET PO (20:42)
[2024-02-13] MEDS: Sertraline HCL 100 MG TABLET PO (20:42)
[2024-02-13] MEDS: Famotidine/PF 20 MG/2 ML VIAL IVPUSH (20:43)
[2024-02-13] MEDS: Acetaminophen 1,000 MG/100 ML PIGGYBACK 16.7 MG IV (20:48)
[2024-02-13] MEDS: Zolpidem Tartrate 5 MG TABLET PO (21:46)
[2024-02-14 02:52] VITALS: BP 145/67; PULSE 65; RESP 18; TEMP 36.1; O2SAT 95
[2024-02-14] MEDS: Acetaminophen 1,000 MG/100 ML PIGGYBACK 16.7 MG IV (02:57)
[2024-02-14] MEDS: Lactated Ringers 1,000 ML 100 ML IVCONT (02:58)
[2024-02-14 05:43] LABS: MANUAL DIFF FLAG NO
[2024-02-14 05:49] LABS: Basophils Percent Auto 0.1 % (0-2); Hematocrit 36.4 % (37.0-47.0); Hemoglobin 12.3 g/dl (12.0-16.0); Imm Gran Abs Auto 0.08 X10*3/uL (0.00-0.03); Imm Gran Pct Auto 0.8 % (0.0-0.4); Lymphocytes Absolute Auto 1.7 X10*3/uL (1.2-4.9); Lymphocytes Percent Auto 16.6 % (20-40); Mean Corpuscular HGB Conc 33.8 g/dl (31.0-35.0); Mean Corpuscular Hemoglobin 28.9 pg (27.0-33.0); Mean Corpuscular Volume 85.4 fL (80.0-98.0); Mean Platelet Volume 9.1 fL (9.4-12.3); Monocytes Absolute Auto 0.3 X10*3/uL (0.1-1.2); Neutrophils Absolute Auto 7.9 x10*3/uL (2.0-8.3); Neutrophils Percent Auto 79.5 % (45-73); Platelet Count 292 X10*3/uL (160-400); Red Blood Count 4.26 X10*6/uL (4.20-5.50); Red Cell Distribution Width 13.2 % (11.0-16.0)
[2024-02-14 06:02] LABS: Anion Gap 17 (12-20); Blood Urea Nitrogen 14 mg/dL (9-16); Calcium 10.1 mg/dL (8.4-10.2); Carbon Dioxide 22 mmol/L (22-29); Chloride 106 mmol/L (96-108); Creatinine Clr Calc Pharmacy 83.3; Estimated Glomerular Filt Rate > 60; Glucose Random 120 mg/dL (60-115); Potassium 4.5 mmol/L (3.3-5.1); Sodium 140 mmol/L (135-145)
[2024-02-14 08:00] VITALS: BP 162/74; PULSE 59; RESP 18; TEMP 36.4; O2SAT 95
[2024-02-14 08:52] VITALS: BP 160/72
[2024-02-14] MEDS: Sertraline HCL 100 MG TABLET PO (08:52)
[2024-02-14] MEDS: Sacubitril/Valsartan 24/26 1 TAB TABLET PO (08:52)
--- NOTE | 2024-02-14 09:17 | MHC.CM.PN ---
Patient from home w/ . Functionally independent. Uses CPAP, supplier is [facility]. PCP Andre Ryan MD Patient completed HCP. Copy given to patient and copy placed in chart. HCA's: 1) spouse Dex Oscar, 2) daughter Laurel Johnson DP: Patient is medically cleared for dc home self care. to transport.
--- NOTE | 2024-02-14 11:56 | HO.POSTANES ---
Post Anesthesia Evaluation Post Anesthesia Evaluation Date of Service: 02/14/24 Vital Signs: Vital Signs Temp Pulse Resp BP Pulse Ox O2 Del Method 02/14/24 08:52 160/72 H 02/14/24 08:00 97.5 F 59 18 162/74 H 95 Room Air 02/14/24 02:52 97 F 65 18 145/67 H 95 Room Air Anesthesia: General Endotracheal-GETA Mental Status: Awake Pain Control: Satisfactory Nausea/Vomiting: None Hydration: Adequate Anesthesia-Related Issues: No Anes. Related Issues
== END 2024-02-14 10:35 | disposition home or self-care (01) | DRG 403 ==
LOC: HO.SSSA 15:55 → HO.S3 16:11
PROVIDERS: Physician Assistant Surgical; Admitting Provider Surgery; PCP Internal Medicine; Visit Provider Surgery
PROC: 0DP64CZ Removal of Extraluminal Device from Stomach, Percutaneous Endoscopic Approach (ICD-10-PCS; principal; 2024-02-13 10:30)
PROC: 0DP64CZ Removal of Extraluminal Device from Stomach, Percutaneous Endoscopic Approach (ICD-10-PCS; CPT 43845; 2024-02-13 10:30)
DX: E66.01 Morbid (severe) obesity due to excess calories (principal); K76.0 Fatty (change of) liver, not elsewhere classified; F31.9 Bipolar disorder, unspecified; G47.33 Obstructive sleep apnea (adult) (pediatric); F43.10 Post-traumatic stress disorder, unspecified; K66.0 Peritoneal adhesions (postprocedural) (postinfection); Z87.891 Personal history of nicotine dependence; Z68.41 Body mass index [BMI] 40.0-44.9, adult; Z79.899 Other long term (current) drug therapy
CPT/HCPCS: 36415; 80048; 85014; 85018; 85025; 86850; 86900; 86901; 88300; 88304; A4649; C9088; C9145; J0131; J1100; J1170; J1956; J2250; J2405; J2704; J2795; J3010; J7120

== ENCOUNTER → 2024-02-13 08:27 | Outpatient (BNV) | payer OTHER, SELFPAY | PROVIDERS: Admitting Provider Surgery; PCP Internal Medicine; Visit Provider Surgery | DX: E66.01 Morbid (severe) obesity due to excess calories (principal); Z68.37 Body mass index [BMI] 37.0-37.9, adult; Z98.84 Bariatric surgery status | CPT/HCPCS: 43774; 99024; 99499 ==

== ENCOUNTER 2024-02-21 12:23 | Outpatient (AMB) | payer OTHER, SELFPAY ==
--- NOTE | 2024-02-21 13:17 | MHC.OFFVISWM ---
VS Expanded 02/21/24 13:26 BP 117/57 L Blood Pressure Location Rt brachial Blood Pressure Position Sitting Pulse 86 Pulse Source Pulse Oximeter Temp 96.2 F L Temperature Source Temporal Artery Scan Pulse Oximetry 95 Oxygen Delivery Method Room Air Height 5 ft 2 in Weight 202 lb 3.2 oz BMI 37.0 Body Fat % 43.2 Body Fat Mass 87.4 Fat Free Mass 114.8 Visceral Fat Rating 2.0 Body Water % 40.5 Body Water Mass 81.8 Muscle Mass/Score 109.2 Basal Metabolic Rate/Score 1,601 Intake Visit Reasons: (OV) PO LSG 02/13/24 Allergies Penicillins Allergy (Intermediate, Verified 02/21/24 13:21) FEVER perflutren Adverse Reaction (Verified 02/21/24 13:21) Back Pain HPI Comments Details: 48-year-old female returns to the office today in follow-up. She is status post laparoscopic gastric band removal on 02/13/2024. She reports that 1 of her challenges is ?flighty?. She has been doing celebrate rebuild, 1 scoop, x2 shakes as well as Unjury ready to drink shakes, 20 g per shake and 1 meal with 5 forks protein and 5 forks vegetables. She has been drinking approximately 80 oz of water daily and has not yet returned to exercise. She states that she does not like the celebrate rebuild shakes as they are ?too sweet?. She has also had difficulty finding a protein bar that she likes. She will communicate all of this with Dr. Barrios with the overall intention and goal of preparing for laparoscopic sleeve gastrectomy. [facility] Medical History (Updated 02/14/24 @ 00:03 by Ernesto Ross) BMI 37.0-37.9, adult Esophagitis determined by biopsy Preoperative cardiovascular examination Morbid obesity Hepatomegaly Steatosis, liver Liver fibrosis PTSD (post-traumatic stress disorder) Non-ischemic cardiomyopathy GERD (gastroesophageal reflux disease) Anxiety Depression Urinary tract infection CHF (congestive heart failure) Cardiomyopathy Fibromyalgia Left bundle branch block Bipolar 1 disorder Sleep apnea HTN (hypertension) Surgical History (Updated 02/21/24 @ 13:28 by Teri Blanca CMA) Status post gastric banding S/P cardiac catheterization Hx of laparoscopic gastric banding Hx of hysterectomy Hx of tonsillectomy Family History Mother Hypertension Father COPD (chronic obstructive pulmonary disease) Clogged artery (heart) Sister Anxiety with depression Obesity Brother Arthritis Brother Obesity Sister No problems noted. Sister No problems noted. Daughter Anxiety with depression Daughter No problems noted. Social History Household Members: Spouse Housing: House Are you a primary patient care representative to a significant other at home: No Do you presently have visiting nurse or other home services: No Alcohol intake: current Alcohol intake frequency: holidays/special occasions only Patient Tobacco Use Status: Former Tobacco user Quit Date: 1 MONTH service: No Physical Exam Vital Signs: Last Vital Signs Temp 96.2 F L 02/21/24 13:26 Pulse 86 02/21/24 13:26 BP 117/57 L 02/21/24 13:26 Pulse Ox 95 02/21/24 13:26 Oxygen Delivery Method Room Air 02/21/24 13:26 BMI result Body Mass Index 37.0 GI Inspection: Yes incision (Clean, dry, intact) Assessment & Plan Assessment & Plan (1) Status post gastric banding: Comment: band removal 02/13/24 Code(s): Z98.84 - Bariatric surgery status Category: Surgical Plan: Patient tolerated band removal. She has been doing celebrate rebuild, 1 scoop in 8 oz of almond milk, x2. Unjury ready to drink shake (20 g protein per shake), x2 and a meal with 5 forks protein and 5 forks vegetables. She will follow up with Dr. Mtz for continued definitive preoperative planning with an ultimate goal of sleeve gastrectomy. She will return to utilizing treadmill with the abdominal binder in place for the next 2 weeks.
[2024-02-21 13:26] VITALS: BP 117/57; PULSE 86; TEMP 35.7; O2SAT 95; BMI 37.0
== END 2024-02-21 13:52 | disposition home or self-care (01) ==
PROVIDERS: PCP Internal Medicine; Visit Provider Physician Assistant Surgical
DX: Z98.84 Bariatric surgery status (principal)
CPT/HCPCS: 99024

== ENCOUNTER → 2024-02-21 12:23 | Outpatient (BNVA) | payer OTHER, SELFPAY | PROVIDERS: PCP Internal Medicine; Visit Provider Physician Assistant Surgical | DX: Z98.84 Bariatric surgery status (principal) | CPT/HCPCS: 99212 ==

== ENCOUNTER 2024-03-03 10:33 | Outpatient (AMB) | payer OTHER, SELFPAY ==
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
== END 2024-03-03 10:34 | disposition home or self-care (01) ==
LOC: HO.HBST 10:33
PROVIDERS: PCP Internal Medicine; Visit Provider Counselor Mental Health
DX: F31.30 Bipolar disorder, current episode depressed, mild or moderate severity, unspecified (principal); E66.01 Morbid (severe) obesity due to excess calories
CPT/HCPCS: 90832

== ENCOUNTER → 2024-03-03 10:33 | Outpatient (BNVA) | payer OTHER, SELFPAY | PROVIDERS: PCP Internal Medicine; Visit Provider Counselor Mental Health ==

== ENCOUNTER 2024-03-12 12:57 | Outpatient (AMB) | payer OTHER, SELFPAY ==
[2024-03-12 13:23] VITALS: BP 120/68; PULSE 60; BMI 37.7
--- NOTE | 2024-03-12 13:23 | MHC.OFFVIS ---
Vital Signs 03/12/24 13:23 Height 5 ft 2 in Weight 206 lb 5.643 oz BMI 37.7 BP 120/68 Blood Pressure Location Lt brachial Position Sitting Pulse 60 Pulse Source Monitor Intake Visit Reasons: Follow up and discuss pacemaker Inside Steward/Stewardess Required: No Accompanied by: Self / Same As Patient Allergies Penicillins Allergy (Intermediate, Verified 02/21/24 13:21) FEVER perflutren Adverse Reaction (Verified 02/21/24 13:21) Back Pain Medication List - Last Reconciled 03/12/24 by Reilly Talavera MD calcium citrate 250 mg PO DAILY cholecalciferol (vitamin D3) 50 mcg PO DAILY cyanocobalamin (vitamin B-12) 1,000 mcg sublingual BID gabapentin 300 mg PO TID iloperidone (Fanapt) 6 mg PO BID oxybutynin chloride ER 10 mg PO DAILY pantoprazole 40 mg PO DAILY sacubitril-valsartan 24-26 mg (Entresto) 1 tab PO BID sertraline 100 mg PO BID sucralfate 10 mL PO BID zolpidem 10 mg PO BEDTIME HPI Comments Details: Sandra returns for follow-up regarding cardiomyopathy. Originally, seen in consultation regarding preoperative risk stratification for weight loss surgery. EKG had shown left bundle-branch block. Subsequently, she underwent entire workup including echocardiogram, cardiac catheterization as well as cardiac MRI. Overall, she states she does not feel too good. When she walks in the mall extra, she gets frequently tired. Dizziness. No clear-cut leg swelling or other heart failure symptoms or signs. She is also worried that heart rate is going down too low. She was on metoprolol but not taking that anymore. She lost some weight recently. With regard to family history, patient states that her maternal grandmother had amyloidosis but again unclear details. She apparently had a pacemaker too. She also had 2nd opinion [facility]. Apparently was told the same information. No new recommendations per patient. [facility] Medical History (Updated 02/22/24 @ 00:01 by Background Daemon) BMI 37.0-37.9, adult Esophagitis determined by biopsy Preoperative cardiovascular examination Morbid obesity Hepatomegaly Steatosis, liver Liver fibrosis PTSD (post-traumatic stress disorder) Non-ischemic cardiomyopathy GERD (gastroesophageal reflux disease) Anxiety Depression Urinary tract infection CHF (congestive heart failure) Cardiomyopathy Fibromyalgia Left bundle branch block Bipolar 1 disorder Sleep apnea HTN (hypertension) Surgical History Status post gastric banding S/P cardiac catheterization Hx of laparoscopic gastric banding Hx of hysterectomy Hx of tonsillectomy Family History Mother Hypertension Father COPD (chronic obstructive pulmonary disease) Clogged artery (heart) Sister Anxiety with depression Obesity Brother Arthritis Brother Obesity Sister No problems noted. Sister No problems noted. Daughter Anxiety with depression Daughter No problems noted. Social History Household Members: Spouse Housing: House Are you a primary childcare center administrator to a significant other at home: No Do you presently have visiting nurse or other home services: No Alcohol intake: current Alcohol intake frequency: holidays/special occasions only Patient Tobacco Use Status: Former Tobacco user service: No Review of Systems Const Denies chills, Denies fatigue, Denies fever(s), Denies frequent falls, Reports weakness, Denies weight gain and Denies weight loss ENT Reports dizziness Card Reports chest pain, Denies leg edema, Reports lightheadedness, Reports palpitations, Reports dyspnea and Reports dyspnea on exertion Resp Denies cough, Reports dyspnea and Reports dyspnea on exertion GI Denies hematochezia Musc Denies abnormal gait, Denies muscle weakness, Denies numbness, Denies radiating pain into limb and Denies tingling Neuro Denies abnormal gait, Reports dizziness, Denies frequent falls, Denies numbness, Denies tingling and Reports weakness Endo Denies fatigue and Reports palpitations Physical Exam Vital Signs: Last Vital Signs Pulse 60 03/12/24 13:23 BP 120/68 03/12/24 13:23 BMI result Body Mass Index 37.7 Const General: comfortable and no acute distress Orientation/consciousness: patient oriented x3 HEENT Other: Unremarkable Head: Yes normal to inspection Neck Neck: Yes normal visual inspection Chest Chest palpation & inspection: normal inspection of the chest Resp Auscultation: clear to auscultation bilaterally Cardio Palpation: normal PMI Heart sounds: S1 normal heart sound present, S2 normal heart sound present, no gallops, no murmurs and no rubs GI Palpation (GI): Soft to palpation Back/Spine/Pelvis Other: unremarkable Skin General skin exam: no rashes or lesions noted Neuro General: patient oriented x3 Extrem General: Yes normal to inspection Psych Mental Status: mental status grossly normal Office Procedures EKG Details: EKG with sinus rhythm at 60/Min with left bundle-branch block pattern. [id number], Complete Assessment & Plan Assessment & Plan (1) Cardiomyopathy: Code(s): I42.9 - Cardiomyopathy, unspecified Category: Medical Qualifiers: Cardiomyopathy type: other Qualified Code(s): I42.8 - Other cardiomyopathies (2) LBBB (left bundle branch block): Code(s): I44.7 - Left bundle-branch block, unspecified Category: Medical (3) Morbid obesity: Code(s): E66.01 - Morbid (severe) obesity due to excess calories Category: Medical Plan Pertinent data reviewed. Echocardiogram with LVEF of 35-40%. Moderate global hypokinesis. No significant valvular issues. Cardiac catheterization shows normal coronaries. Cardiac MRI with LVEF of 40%. No significant delayed enhancement patterns. RVEF 54%. No significant valvular issues. Thought to be nonischemic cardiomyopathy. Holter monitor last year shows underlying sinus rhythm with an average rate of 85/Min. Around 22% the time, rate > 100/Min. This might be related to obesity/deconditioning. With regard to medications, she is only on Entresto. No longer on beta-blockers or spironolactone and it seems that they have been stopped. Clinically, no volume overload and not on any diuretics. With regard to her symptoms of getting tired with activity extra uncertain reason. We will repeat echocardiogram to ensure there is no significant drop in EF. She is also interested in device therapy but we will need to reassess LVEF to see what it is. With regard to her concerns of heart rate going down to much into the 30s, 40s, we will repeat a Holter. I suspect her smart watch information may not be accurate as there was no significant bradycardia and the previous Holter. We will plan on seeing her with repeat echocardiogram/Holter and plan further care. It seems that she has had the lap band removal but not the actual weight loss surgery and that may be scheduled for later this year. We had a long conversation but all these and she seems to be agreeable. If indeed we proceed with a Bi V pacemaker or ICD, will need to decide on timing- if we are going to do that before her weight loss surgery or after. Orders: Orders CA echo transthoracic complete Today I42.8 - Other cardiomyopathies ECG 3 day holter monitor Today I44.7 - Left bundle-branch block, unspecified Coding Level of Care Code Est Pt Level 4 (32070) Diagnoses Other cardiomyopathy I42.8 Cardiomyopathy type: other LBBB (left bundle branch block) I44.7 Morbid obesity E66.01 CPT Codes EKG - CPT: 75344-[id number], Complete ([id number])
== END 2024-03-12 13:58 | disposition home or self-care (01) ==
PROVIDERS: PCP Internal Medicine; Visit Provider Internal Medicine
DX: I42.8 Other cardiomyopathies (principal); I44.7 Left bundle-branch block, unspecified; E66.01 Morbid (severe) obesity due to excess calories
CPT/HCPCS: 93010; 99214

== ENCOUNTER → 2024-03-12 12:57 | Outpatient (BNVA) | payer OTHER, SELFPAY | PROVIDERS: PCP Internal Medicine; Visit Provider Internal Medicine | DX: I42.8 Other cardiomyopathies (principal); I44.7 Left bundle-branch block, unspecified; R94.31 Abnormal electrocardiogram [ECG] [EKG]; E66.01 Morbid (severe) obesity due to excess calories; Z68.37 Body mass index [BMI] 37.0-37.9, adult | CPT/HCPCS: 93005; 99212 ==

== ENCOUNTER → 2024-03-31 11:03 | Outpatient (REF) | payer OTHER, SELFPAY ==
--- NOTE | 2024-03-31 11:06 | CA_ITS ---
Transthoracic Echocardiogram Patient (Last, First, Middle): Sandra Oscar A Gender: Female Date of : 1975 Age: 49 Procedure Date: 03/31/2024 Procedure Type: Transthoracic Echocardiogram Location: OP Height: 157.48 cm Weight: 92.99 kg BSA: 1.93 m2 Heart Rate: bpm BP: 110 / 70 mmHg Manager Of Finance: TO Referring MD: Reilly Talavera MD Symptoms: I42.8 - Other cardiomyopathies Study Quality: Fair ECG Rhythm: Sinus Conclusions: - Visually estimated LVEF about 40-50%. - No obvious valvular pathology seen on this study. Findings Left Ventricle Normal left ventricular cavity size. There is mildly increased left ventricular wall thickness. There is paradoxical septal motion consistent with a left bundle branch block. Diastolic function is normal for age. Visually estimated LVEF about 40-50%. Contrast not used due to history of allergy. Right Ventricle Normal right ventricular cavity size and systolic function. Atria Both atria are normal in size. Aortic Valve There is a normal trileaflet aortic valve. There is no aortic valve stenosis. There is no aortic valve regurgitation. Mitral Valve The mitral valve appears normal. There is no mitral valve regurgitation. There is no mitral valve stenosis. Pulmonic Valve The pulmonic valve is likely normal. Tricuspid Valve There is trace tricuspid valve regurgitation. There is no evidence of pulmonary hypertension. Great Vessels The asc aorta is normal in size. Venous The inferior vena cava is normal in size and collapses less than 50% with inspiration. Pericardium/Pleural There is a trivial pericardial effusion. Prior Study Comparison Changes noted compared to prior study dated: 08/09/2022. slightly higher LVEF. Recommendations, Care & Conclusions No obvious valvular pathology seen on this study. Measurements 2D Linear Measurements IVSd: 1.18 0.6-0.9/0.6-1.0 cm LVIDd: 4.95 3.9-5.3/4.2-5.9 cm LVIDd Index: 2.56 2.4-3.2/2.2-3.1 cm/m2 LVIDs: 3.55 2.0-3.6 cm LVPWd: 1.11 0.7-1.1 cm LA Diam: 3.80 2.7-3.8/3.0-4.0 cm LAIDs Index: 1.97 1.5-2.3 cm/m2 LV Mass: 268.54 67-162/88-224 g LV Mass Index: 139.14 43-95/49-115 g/m2 LVOT Diam: 2.00 3.0+(-)1.3 cm 2D Systolic Function EF 2C: 53.00 >55% Mitral Valve MV VTI: 0.24 MV Pk Anton: 0.83 MV Mn Anton: 0.56 MV Pk Grad: 3.00 MV Mn Grad: 1.00 MV Pk E: 0.79 MV PK A: 0.68 MV Decel Time: 211.00 E/A: 1.20 E'Lateral: 7.51 E'Medial: 6.42 E/E' Med: 12.40 E/E' Lat: 10.60 PHT: 62.00 MVA PHT: 3.55 MVA Continuity: 3.24 Decel Ripley: 3.75 Aortic Valve AoV Pk Anton: 1.95 AoV Mn Anton: 1.44 AoV VTI: 0.38 AoV Pk Grad: 15.00 Aov Mn Grad: 9.00 NILTON Cont.VTI: 2.04 LVOT LVOT Pk Anton: 1.24 LVOT Mn Anton: 0.94 LVOT VTI: 0.25 LVOT Pk Grad: 6.00 LVOT Mn Grad: 4.00 LVOT Diam: 2.00 LVOT Area: 3.14 Diastolic Function MV Pk E: 0.79 MV Pk A: 0.68 E/A: 1.20 E'Medial: 6.42 E/E' Med: 12.40 E' Laterial: 7.51 E/E' Lat: 10.60 Right Ventricle TAPSE (mm): 26.50 TVS' Anton: 16.60 Tricuspid Valve TR Pk Anton: 2.32 TR Pk Grad: 22.00 RA Press: 8.00 RVSP: 30.00 Great Vessels Aorta Sinus of Valsalva: 2.89 2.0-3.[address] Ridge: 2.61 1.7-3.4 cm Ao Asc: 3.40 2.1-3.4 cm Ao Arch: 2.40 Updated in Other Vendor System with Status of Final Reilly Talavera MD electronically signed on 04/02/2024 1:05:27 PM with status of Final
--- NOTE | 2024-03-31 11:06 | HM_ITS ---
* Total monitoring time 3 days. * Underlying rhythm is sinus with an average rate of 73/Min. About 10% of the time, rate > 100/Min. * Rare supraventricular ectopy with minimal burden. * Rare ventricular ectopy. * No significant pauses or AV blocks. * Patient marker used once in association with sinus tachycardia. * Shortness of breath, tightness, nausea, headache, exhaustion while bringing groceries associated with sinus tachycardia at 125/Min. MTDD
== END ==
LOC: HO.CARD 11:03
PROVIDERS: PCP Internal Medicine; Visit Provider Internal Medicine
DX: I42.8 Other cardiomyopathies (principal); I44.7 Left bundle-branch block, unspecified
CPT/HCPCS: 93242; 93306

== ENCOUNTER → 2024-03-31 11:06 | Outpatient (BNV) | payer OTHER, SELFPAY | PROVIDERS: PCP Internal Medicine; Visit Provider Internal Medicine | DX: R00.0 Tachycardia, unspecified (principal) | CPT/HCPCS: 93244; 93306 ==

== ENCOUNTER 2024-04-02 20:41 | Emergency (ER) | payer OTHER, SELFPAY ==
--- NOTE | ~2024-04-02 | XR_ITS ---
EXAMINATION: XR CHEST CLINICAL INFORMATION: cp w cough COMPARISON: Chest radiograph 02/03/2024 TECHNIQUE: PA and lateral views of the chest were obtained. FINDINGS: Generator pack external to the patient overlying the left upper chest. EKG leads overlie the lower chest. The lungs are adequately expanded. Small bilateral pleural effusions with associated subtle bibasilar hazy opacities. There is a 0.9 cm rounded density overlying the lateral left upper lobe, not previously seen. No pulmonary edema, or pneumothorax. The cardiomediastinal silhouette is within normal limits for technique and unchanged. No acute osseous abnormality. XR/XR chest 2V IMPRESSION: 1. Small bilateral pleural effusions with associated subtle bibasilar hazy opacities. 2. There is a 0.9 cm rounded density overlying the lateral left upper lobe, not previously seen. This could represent a pulmonary nodule. Consider CT chest for further characterization versus repeat radiograph upon resolution of symptoms to assess for resolution of finding.
--- NOTE | 2024-04-02 20:42 | ECG_ITS ---
Test Reason : CHEST PAIN Blood Pressure : / mmHG Vent. Rate : 069 BPM Atrial Rate : 069 BPM P-R Int : 166 ms QRS Dur : 134 ms QT Int : 434 ms P-R-T Axes : 034 -11 060 degrees QTc Int : 465 ms Normal sinus rhythm Left bundle branch block Abnormal ECG When compared with ECG of 12-JUL-2022 15:11, No significant changes seen Referred By: Jose Conteh Electronically Signed By:ALEX RODRIGUES
[2024-04-02 20:48] VITALS: BP 142/66; PULSE 69; RESP 18; TEMP 36.3; O2SAT 97; BMI 37.5
[2024-04-02 21:05] VITALS: BP 144/75; PULSE 64; RESP 15; TEMP 36.8
[2024-04-02 21:13] LABS: MANUAL DIFF FLAG NO
[2024-04-02 21:14] LABS: Basophils Percent Auto 0.6 % (0-2); Eosinophils Absolute Auto 0.2 X10*3/uL (0.0-0.4); Eosinophils Percent Auto 2.9 % (0-4); Hematocrit 34.4 % (37.0-47.0); Hemoglobin 11.5 g/dl (12.0-16.0); Imm Gran Abs Auto 0.03 X10*3/uL (0.00-0.03); Imm Gran Pct Auto 0.5 % (0.0-0.4); Lymphocytes Absolute Auto 2.4 X10*3/uL (1.2-4.9); Lymphocytes Percent Auto 36.6 % (20-40); Mean Corpuscular HGB Conc 33.4 g/dl (31.0-35.0); Mean Corpuscular Hemoglobin 28.8 pg (27.0-33.0); Mean Corpuscular Volume 86.2 fL (80.0-98.0); Monocytes Absolute Auto 0.6 X10*3/uL (0.1-1.2); Monocytes Percent Auto 8.5 % (2-11); Neutrophils Absolute Auto 3.4 x10*3/uL (2.0-8.3); Neutrophils Percent Auto 50.9 % (45-73); Platelet Count 249 X10*3/uL (160-400); Red Blood Count 3.99 X10*6/uL (4.20-5.50); Red Cell Distribution Width 14.4 % (11.0-16.0); White Blood Count 6.6 X10*3/uL (4.8-10.8)
--- NOTE | 2024-04-02 21:16 | PC.NURSE ---
pt to xray at this time.
--- NOTE | 2024-04-02 21:43 | ED.CHESTPAIN ---
HPI - Chest Pain General Chief Complaint: Chest Pain Stated Complaint: Chest pain Time Seen by Provider: 04/02/24 21:25 Source: patient Mode of arrival: ambulatory Limitations: no limitations History of Present Illness ED Provider: cara CARNES narrative: Patient with bipolar disorder left bundle-branch block with cardiomyopathy ejection fraction 40-50% in the echo done on 03/31/2024 comes here for chest pain for last few weeks got worse in last 2 days no relation with exertion never had nocturnal chest feels very tired, has cold symptoms for last 2 days does not get very good sleep in the night takes Ambien 3 times a week and is on Zoloft patient had a cardiac catheterization and MRI last year which was negative had lap band removed 02/13/24. Seen the assessment nurse on 03/12 for similar complaints of feeling weak and tired with heart rate dropping to 40s but had previous Holter monitoring done which was did not show bradycardia currently has Holter monitoring patient feel more depressed lately previous thyroid workup was negative Related Data Home Medications ?Medication ?Instructions ?Recorded ?Confirmed sertraline 100 mg tablet 100 mg PO BID 06/19/22 03/12/24 calcium citrate 250 mg PO DAILY 02/03/24 03/12/24 iloperidone 6 mg tablet (Fanapt) 6 mg PO BID 02/03/24 03/12/24 sacubitril 24 mg-valsartan 26 mg 1 tab PO BID 02/03/24 03/12/24 tablet (Entresto) zolpidem 10 mg tablet 10 mg PO BEDTIME 02/03/24 03/12/24 cholecalciferol (vitamin D3) 50 50 mcg PO DAILY 03/12/24 03/12/24 mcg (2,000 unit) capsule cyanocobalamin (vitamin B-12) 1,000 mcg sublingual BID 03/12/24 03/12/24 1,000 mcg sublingual tablet gabapentin 300 mg capsule 300 mg PO TID 03/12/24 03/12/24 oxybutynin chloride 10 mg 10 mg PO DAILY 03/12/24 03/12/24 tablet,extended release 24 hr Previous Rx's ?Medication ?Instructions ?Recorded sucralfate 100 mg/mL oral 10 ml PO BID #600 mL 01/07/24 suspension pantoprazole 40 mg tablet,delayed 40 mg PO DAILY #90 tabs 01/13/24 release benzonatate 200 mg capsule 200 mg PO TID PRN cough #30 caps 04/02/24 Allergies Allergy/AdvReac Type Severity Reaction Status Date / Time Penicillins Allergy Intermediate FEVER Verified 04/02/24 20:52 perflutren AdvReac Back Pain Verified 04/02/24 20:52 Review of Systems Review of Systems: Yes all other systems are reviewed and are negative [facility] Past Medical History Medical History BMI 37.0-37.9, adult Esophagitis determined by biopsy Preoperative cardiovascular examination Morbid obesity Hepatomegaly Steatosis, liver Liver fibrosis PTSD (post-traumatic stress disorder) Non-ischemic cardiomyopathy GERD (gastroesophageal reflux disease) Anxiety Depression Urinary tract infection CHF (congestive heart failure) Cardiomyopathy Fibromyalgia Left bundle branch block Bipolar 1 disorder Sleep apnea HTN (hypertension) Surgical History Status post gastric banding S/P cardiac catheterization Hx of laparoscopic gastric banding Hx of hysterectomy Hx of tonsillectomy Family History Family History Mother Hypertension Father COPD (chronic obstructive pulmonary disease) Clogged artery (heart) Sister Anxiety with depression Obesity Brother Arthritis Brother Obesity Sister No problems noted. Sister No problems noted. Daughter Anxiety with depression Daughter No problems noted. Social History Social History Household Members: Spouse Housing: House Are you a primary patient care provider to a significant other at home: No Do you presently have visiting nurse or other home services: No Alcohol intake: current Alcohol intake frequency: holidays/special occasions only Patient Tobacco Use Status: Former Tobacco user Smoked in Last 30 Days: No Advance Directives: No Advance Directives Information Provided: No service: No Physical Exam Vital Signs: Vital Signs: Last Vital Signs Temp 97.8 F 04/02/24 22:19 Pulse 73 04/02/24 22:19 Resp 15 04/02/24 22:19 BP 140/51 H 04/02/24 22:19 Pulse Ox 97 04/02/24 22:19 O2 Del Method Room Air 04/02/24 22:19 BMI result Body Mass Index 37.5 Appearance: Alert. Oriented X3. No acute distress. Looks depressed Eyes: PERRLA, No Nystagmus ENT: Pharynx normal. Oral Mucosa moist Neck: Normal inspection. Neck supple. CVS: Normal heart rate and rhythm. Pulses normal. Respiratory: No respiratory distress. Equal air entry bilateral, no wheezing/rales/rhonchi Abdomen: Soft and nontender. Bowel sounds are present, no mass palpable, no CVA tenderness Skin: Skin warm and dry. Normal skin color. Normal skin turgor. Extremities: No lower extremity edema. No calf tenderness Neuro: Oriented X 3. No motor deficit. No sensory deficit.No cerebellar signs , cranial nerves II-XII intact Medical Decision Making Medical Decision Making [facility] Narrative: Patient with cold symptoms with time body aches with bradycardia and chest pain for few days and workup is negative for ACS patient's son is also sick with cold symptoms patient is not COVID positive will discharge patient home at this time orthostatics are normal saturating 97% at room air . Differential Diagnosis Differential Diagnoses: The differential diagnosis associated with the presentation includes Admission/Observation Consideration of admission/observation: Escalation of care including admission/observation considered Lab Data [facility] Lab Attestation statement: I reviewed the patient's lab results. 04/02/24 21:09 04/02/24 21:09 Labs: Lab Results 04/02/24 04/02/24 Range/Units 21:08 21:09 WBC 6.6 (4.8-10.8) X10*3/uL RBC 3.99 L (4.20-5.50) X10*6/uL Hgb 11.5 L (12.0-16.0) g/dl Hct 34.4 L (37.0-47.0) % MCV 86.2 (80.0-98.0) fL MCH 28.8 (27.0-33.0) pg MCHC 33.4 (31.0-35.0) g/dl RDW 14.4 (11.0-16.0) % Plt Count 249 (160-400) X10*3/uL MPV 9.0 L (9.4-12.3) fL Immature Gran % (Auto) 0.5 H (0.0-0.4) % Neut % (Auto) 50.9 (45-73) % Lymph % (Auto) 36.6 (20-40) % [place] % (Auto) 8.5 (2-11) % Eos % (Auto) 2.9 (0-4) % Baso % (Auto) 0.6 (0-2) % Lymph # (Auto) 2.4 (1.2-4.9) X10*3/uL [place] # (Auto) 0.6 (0.1-1.2) X10*3/uL Eos # (Auto) 0.2 (0.0-0.4) X10*3/uL Baso # (Auto) 0.0 (0.0-0.2) X10*3/uL Abs Immat Gran (auto) 0.03 (0.00-0.03) X10*3/uL Absolute Neuts (auto) 3.4 (2.0-8.3) x10*3/uL Absolute Nucleated RBC 0.000 (0.0-0.012) X10*3/uL Nucleated RBC % (auto) 0.0 (0.0-0.2) /100WBC Sodium 139 (135-145) mmol/L Potassium 4.2 (3.3-5.1) mmol/L Chloride 108 (96-108) mmol/L Carbon Dioxide 22 (22-29) mmol/L Anion Gap 13 (12-20) BUN 10 (9-16) mg/dL Creatinine 0.90 (0.5-1.4) mg/dL Estim Creat Clear Calc 79.4 Estimated GFR > 60 Random Glucose 86 (60-115) mg/dL Calcium 8.6 D (8.4-10.2) mg/dL Total Bilirubin 0.4 (0.0-1.0) mg/dL AST 12 (5-31) U/L ALT 11 (0-31) U/L Alkaline Phosphatase 81 (39-117) U/L Troponin I High Sens < 2.7 (<3.5-17.0) ng/L Total Protein 7.2 (6.5-8.0) g/dL Albumin 4.1 (3.5-5.0) g/dL Influenza Type A (PCR) NEGATIVE (Negative) Influenza Type B (PCR) NEGATIVE (Negative) RSV RNA Qual (PCR) NEGATIVE (Negative) SARS-CoV-2 RNA (RT-PCR) POSITIVE A (Negative) Independent Interpretation I performed an independent interpretation of an: EKG Interpretation: Normal sinus rhythm heart rate 69 beats per minute LBBB no acute STT wave changes no acute ischemia Discharge Plan Discharge Clinical Impression: COVID-19 Patient Disposition: Home, Self-Care Instructions: COVID-19 (Coronavirus Disease 2019) (ED) Additional Instructions: Keep hydrated Tylenol/Motrin for body aches Tessalon Perles as needed for cough Report to the ER/PCP if increased shortness of breath Prescriptions: New benzonatate 200 mg capsule 200 mg PO TID PRN (Reason: cough) Qty: 30 0RF No Action sucralfate 100 mg/mL suspension 10 ml PO BID Qty: 600 2RF pantoprazole 40 mg tablet,delayed release (DR/EC) 40 mg PO DAILY Qty: 90 0RF Fanapt 6 mg tablet 6 mg PO BID sertraline 100 mg tablet 100 mg PO BID calcium citrate 250 mg calcium tablet 250 mg PO DAILY Entresto 24-26 mg tablet 1 tab PO BID zolpidem 10 mg tablet 10 mg PO BEDTIME cholecalciferol (vitamin D3) 50 mcg (2,000 unit) capsule 50 mcg PO DAILY oxybutynin chloride 10 mg tablet extended release 24hr 10 mg PO DAILY gabapentin 300 mg capsule 300 mg PO TID cyanocobalamin (vitamin B-12) 1,000 mcg tablet, sublingual 1,000 mcg sublingual BID Interventions: ED Discharge Assessment Last Done: 04/02/24 22:19 Discharge Date/Time: 04/02/24 22:20 Print Language: Mosotho
[2024-04-02 21:50] LABS: Alanine Aminotransferase 11 U/L (0-31); Albumin Level 4.1 g/dL (3.5-5.0); Alkaline Phosphatase 81 U/L (39-117); Anion Gap 13 (12-20); Aspartate Amino Transferase 12 U/L (5-31); Bilirubin Total 0.4 mg/dL (0.0-1.0); Blood Urea Nitrogen 10 mg/dL (9-16); Calcium 8.6 mg/dL (8.4-10.2); Carbon Dioxide 22 mmol/L (22-29); Chloride 108 mmol/L (96-108); Creatinine Clr Calc Pharmacy 79.4; Estimated Glomerular Filt Rate > 60; Glucose Random 86 mg/dL (60-115); Potassium 4.2 mmol/L (3.3-5.1); Sodium 139 mmol/L (135-145); Total Protein 7.2 g/dL (6.5-8.0)
[2024-04-02 21:57] LABS: Troponin-I High Sensitivity < 2.7 ng/L (<3.5-17.0)
[2024-04-02 21:57] LABS: Influenza A PCR NEGATIVE (Negative); Influenza B PCR NEGATIVE (Negative); Resp Syncy Virus RNA Qual PCR NEGATIVE (Negative); SARS COV2 PCR INHOUSE POSITIVE (Negative)
[2024-04-02 21:59] VITALS: BP 148/67; PULSE 66
[2024-04-02 22:00] VITALS: BP 150/66; PULSE 72
[2024-04-02 22:01] VITALS: BP 140/51; PULSE 73
[2024-04-02 22:19] VITALS: BP 140/51; PULSE 73; RESP 15; TEMP 36.6; O2SAT 97
== END 2024-04-02 22:20 | disposition home or self-care (01) ==
PROVIDERS: Emergency Provider Internal Medicine; PCP Internal Medicine
DX: U07.1 COVID-19 (principal); R07.89 Other chest pain; I44.7 Left bundle-branch block, unspecified; Z79.899 Other long term (current) drug therapy
CPT/HCPCS: 0241U; 36415; 71046; 80053; 84484; 85025; 93005; 99283; 99284

== ENCOUNTER → 2024-04-02 20:42 | Outpatient (BNV) | payer OTHER, SELFPAY | PROVIDERS: Emergency Provider Internal Medicine; PCP Internal Medicine; Visit Provider Internal Medicine | DX: R07.9 Chest pain, unspecified (principal); I44.7 Left bundle-branch block, unspecified; R94.31 Abnormal electrocardiogram [ECG] [EKG] | CPT/HCPCS: 93010 ==

== ENCOUNTER 2024-04-15 09:34 | Outpatient (AMB) | payer OTHER, SELFPAY ==
--- NOTE | 2024-04-15 09:43 | A.OFFVIS_ITS ---
VS Expanded 04/15/24 09:55 BP 110/55 L Blood Pressure Location Rt brachial Blood Pressure Position Sitting Pulse 64 Pulse Source Pulse Oximeter Temp 97.4 F Temperature Source Temporal Artery Scan Pulse Oximetry 95 Oxygen Delivery Method Room Air Height 5 ft 2 in Weight 203 lb 3.2 oz BMI 37.2 Body Fat % 46.8 Body Fat Mass 95.0 Fat Free Mass 108.0 Visceral Fat Rating 13.0 Body Water % 37.9 Body Water Mass 77.0 Muscle Mass/Score 102.6 Basal Metabolic Rate/Score 1,530 Intake Visit Reasons: (OV) s/p Lap Band Removal 02/13/24 Allergies Penicillins Allergy (Intermediate, Verified 04/15/24 09:51) FEVER perflutren Adverse Reaction (Verified 04/15/24 09:51) Back Pain HPI Comments Details: 48-year-old female returns to the office today in follow-up. She is status post laparoscopic gastric band removal on 02/13/2024. She reports that 1 of her challenges is ?flighty?. She states that she has been drinking her shakes over 15 minutes each. She is typically using the ready to drink shakes. She has been unable to follow the plan as directed, as she has been doing for shakes per day and not measuring the food quantity of her meal at night. She has had difficulty with exercise. She was seen by Cardiology in February with a significant workup although due to persistent symptoms, it was recommended that she get another echocardiogram. I do not see that 1 had been scheduled and I called Cardiology with the patient in front of me and they will follow up with her. Reports constant fatigue and SOB with exercise. She states that she has noticed low heart rate into the 50s occasionally and nocturnal hypoxia to 83% as she does wear a pulse ox at night. She states she is scheduled to meet with the CPAP people on 04/20. Meal plan: Unjury 20 gm shake x 4 per day 730-745, 10-1015, 12-1215, [id number] RTD 20 gm Powder 28 gm/scoop meal supposed to be 5 forks and 5 forks but she is doing a small plate and not measuring Exercise plan: Nothing since surgery. Has chest pain w exercise. [facility] Medical History BMI 37.0-37.9, adult Esophagitis determined by biopsy Preoperative cardiovascular examination Morbid obesity Hepatomegaly Steatosis, liver Liver fibrosis PTSD (post-traumatic stress disorder) Non-ischemic cardiomyopathy GERD (gastroesophageal reflux disease) Anxiety Depression Urinary tract infection CHF (congestive heart failure) Cardiomyopathy Fibromyalgia Left bundle branch block Bipolar 1 disorder Sleep apnea HTN (hypertension) Surgical History Status post gastric banding S/P cardiac catheterization Hx of laparoscopic gastric banding Hx of hysterectomy Hx of tonsillectomy Family History Mother Hypertension Father COPD (chronic obstructive pulmonary disease) Clogged artery (heart) Sister Anxiety with depression Obesity Brother Arthritis Brother Obesity Sister No problems noted. Sister No problems noted. Daughter Anxiety with depression Daughter No problems noted. Social History Household Members: Spouse Housing: House Are you a primary wound care nurse to a significant other at home: No Do you presently have visiting nurse or other home services: No Alcohol intake: current Alcohol intake frequency: holidays/special occasions only Patient Tobacco Use Status: Former Tobacco user service: No Physical Exam Vital Signs: Last Vital Signs Temp 97.4 F 04/15/24 09:55 Pulse 64 04/15/24 09:55 BP 110/55 L 04/15/24 09:55 Pulse Ox 95 04/15/24 09:55 Oxygen Delivery Method Room Air 04/15/24 09:55 BMI result Body Mass Index 37.2 Const General: healthy appearing and no acute distress Resp Effort & Inspection: normal respiratory effort Auscultation: clear to auscultation bilaterally Cardio Rate: regular rate Rhythm: regular rhythm GI Auscultation: normal bowel sounds Extrem General: Yes normal to inspection Assessment & Plan Assessment & Plan (1) Status post gastric banding: Comment: band removal 02/13/24 Code(s): Z98.84 - Bariatric surgery status Category: Surgical Plan: Recommended meal plan includes Unjury rtd shake 20 gm x 2 and Unjury powder 28 gm /scoop, 1/2 scoop in 8 oz almond milk x 1 meal with 5 forks protein and 5 forks veg She was encouraged to at least do 10-15 minutes on the treadmill daily if she is able. It did not appear by Cardiology notes that she was directed not to. Additionally, she is scheduled to follow-up with an oxygen company next week for nocturnal hypoxia, possibly related ADORE. We will arrange for follow-up in 1 month.
[2024-04-15 09:55] VITALS: BP 110/55; PULSE 64; TEMP 36.3; O2SAT 95; BMI 37.2
== END 2024-04-15 10:26 | disposition home or self-care (01) ==
PROVIDERS: PCP Internal Medicine; Visit Provider Physician Assistant Surgical
DX: E66.9 Obesity, unspecified (principal); Z68.37 Body mass index [BMI] 37.0-37.9, adult; Z98.84 Bariatric surgery status
CPT/HCPCS: 99024

== ENCOUNTER → 2024-04-15 09:34 | Outpatient (BNVA) | payer OTHER, SELFPAY | PROVIDERS: PCP Internal Medicine; Visit Provider Physician Assistant Surgical | DX: Z48.89 Encounter for other specified surgical aftercare (principal) | CPT/HCPCS: 99212 ==

== ENCOUNTER 2024-05-18 08:09 | Outpatient (AMB) | payer OTHER, SELFPAY ==
[2024-05-18 13:55] VITALS: BMI 38.3
--- NOTE | 2024-05-18 13:55 | MHC.OFFVISWM ---
VS Expanded 05/18/24 13:55 Height 5 ft 2 in Weight 209 lb 9 oz BMI 38.3 Body Fat % 48.8 Body Fat Mass 102.4 Fat Free Mass 107.4 Intake Visit Reasons: TV Follow Up SWL Allergies Penicillins Allergy (Intermediate, Verified 04/15/24 09:51) FEVER perflutren Adverse Reaction (Verified 04/15/24 09:51) Back Pain HPI HPI TV Follow Up SWL: Details: Start time: 1.38pm, End time: 2.08pm ?I spent 25 minutes speaking with the patient on the phone plus an additional 5 minutes reviewing and updating records for a total of 30 minutes HPI Comments Details: Overall weight loss: 14.3bs, or 6.4% TBWL Is using 4 premade Unjury shakes and one meal (5 forks of protein and 5 forks of salad or vegetables) Exercise: none due to severe fatigue with minor activities. Had a Holter in March that showed tachycardia of 125 bpm with minor activities and an echo which showed EF of 40-50% not worse than previous echos. Is being considered for a pacemaker or ICD. [facility] Medical History BMI 37.0-37.9, adult Esophagitis determined by biopsy Preoperative cardiovascular examination Morbid obesity Hepatomegaly Steatosis, liver Liver fibrosis PTSD (post-traumatic stress disorder) Non-ischemic cardiomyopathy GERD (gastroesophageal reflux disease) Anxiety Depression Urinary tract infection CHF (congestive heart failure) Cardiomyopathy Fibromyalgia Left bundle branch block Bipolar 1 disorder Sleep apnea HTN (hypertension) Surgical History Status post gastric banding S/P cardiac catheterization Hx of laparoscopic gastric banding Hx of hysterectomy Hx of tonsillectomy Family History Mother Hypertension Father COPD (chronic obstructive pulmonary disease) Clogged artery (heart) Sister Anxiety with depression Obesity Brother Arthritis Brother Obesity Sister No problems noted. Sister No problems noted. Daughter Anxiety with depression Daughter No problems noted. Social History Household Members: Spouse Housing: House Are you a primary intensive care ambulance paramedic to a significant other at home: No Do you presently have visiting nurse or other home services: No Alcohol intake: current Alcohol intake frequency: holidays/special occasions only Patient Tobacco Use Status: Former Tobacco user service: No Telehealth Telehealth Telehealth Platform: Telephone Location of provider rendering services: practice address Location of patient: address on file Patient Identification confirmed using: Name, : Yes Telehealth method: voice only Patient verbally consented to treatment: Yes Patient verbally consented to billing insurance company: Yes Patient informed of any privacy concerns related to visit: Yes Minutes spent on Phone/Video with Pt.: 30 Assessment & Plan Assessment & Plan (1) Obesity: Code(s): E66.9 - Obesity, unspecified Category: Medical Qualifiers: Obesity type: due to excess calories Obesity classification: adult class 2 (BMI 35 - 39.9) Serious obesity comorbidity presence: with serious comorbidity Body mass index: BMI 38.0-38.9 Qualified Code(s): E66.01 - Morbid (severe) obesity due to excess calories; Z68.38 - Body mass index [BMI] 38.0-38.9, adult Plan: 1. Please change nutritional plan to two premade Unjury shakes (4oz of Unjury mixed with 4oz almond milk), 2 whole bottle premade Unjury shakes and one meal (5 forks of protein and 5 forks of salad) 2. Start treadmill at a speed of 3mph without incline and do only 10 min 3-4 times per day, weekly. Let me if you can tolerate this 3. Ask the surgeon whether the pacemaker needs to be placed before or after the bariatric surgery and whether you need to be on any blood thinners and let me know 4. Send me weight measurements weekly on Mondays
== END 2024-05-18 14:09 | disposition home or self-care (01) ==
LOC: HO.HBS 08:09
PROVIDERS: PCP Internal Medicine; Visit Provider Surgery
DX: E66.01 Morbid (severe) obesity due to excess calories (principal); Z68.38 Body mass index [BMI] 38.0-38.9, adult
CPT/HCPCS: 99214

== ENCOUNTER → 2024-05-18 08:09 | Outpatient (BNVA) | payer OTHER, SELFPAY | PROVIDERS: PCP Internal Medicine; Visit Provider Surgery ==

== ENCOUNTER → 2024-06-17 12:35 | Outpatient (BNVA) | payer OTHER, SELFPAY | PROVIDERS: PCP Internal Medicine; Visit Provider Physician Assistant Surgical ==

== ENCOUNTER 2024-06-29 08:15 | Outpatient (AMB) | payer OTHER, SELFPAY ==
[2024-06-29 11:34] VITALS: BMI 37.1
--- NOTE | 2024-06-29 11:34 | A.OFFVIS_ITS ---
VS Expanded 06/29/24 11:34 Height 5 ft 2 in Weight 203 lb BMI 37.1 Body Fat % 48.2 Body Fat Mass 98.1 Fat Free Mass 105.4 Visceral Fat Rating 15 Body Water % 42.5 Body Water Mass 86.5 Basal Metabolic Rate/Score 1,482 Intake Visit Reasons: TV Pre Op [place] [facility] [place] Allergies Penicillins Allergy (Intermediate, Verified 06/29/24 11:35) FEVER perflutren Adverse Reaction (Verified 06/29/24 11:35) Back Pain Medication List - Last Reconciled 06/29/24 by William Barrios MD benzonatate 200 mg PO TID PRN calcium citrate 250 mg PO DAILY cholecalciferol (vitamin D3) 50 mcg PO DAILY cyanocobalamin (vitamin B-12) 1,000 mcg sublingual BID gabapentin 300 mg PO TID iloperidone (Fanapt) 6 mg PO BID ondansetron 4 mg PO Q6H PRN oxybutynin chloride ER 10 mg PO DAILY pantoprazole 40 mg PO DAILY pantoprazole 40 mg PO DAILY polyethylene glycol 3350 17 grams PO DAILY sacubitril-valsartan 24-26 mg (Entresto) 1 tab PO BID sertraline 100 mg PO BID sucralfate 10 mL PO BID sucralfate 10 mL PO BID zolpidem 10 mg PO BEDTIME HPI HPI TV Pre Op Rev of [place] [facility] [place] Details: Start time: 11.40am, End time: 12.10pm ?I spent 25 minutes speaking with the patient on the phone plus an additional 5 minutes reviewing and updating records for a total of 30 minutes HPI Comments Details: Overall weight loss: 20.6lbs, or 9.2% TBWL Has been placed on a liquid diet with 5 Unjury premade shakes (1/2 bottle mixed with 4oz almond milk) and one whole bottle Unjury shake [facility] Medical History (Updated 06/29/24 @ 11:41 by William Barrios MD) BMI 37.0-37.9, adult Esophagitis determined by biopsy Preoperative cardiovascular examination Morbid obesity Hepatomegaly Steatosis, liver Liver fibrosis PTSD (post-traumatic stress disorder) Non-ischemic cardiomyopathy GERD (gastroesophageal reflux disease) Anxiety Depression Urinary tract infection CHF (congestive heart failure) Cardiomyopathy Fibromyalgia Left bundle branch block Bipolar 1 disorder Sleep apnea HTN (hypertension) Surgical History Status post gastric banding S/P cardiac catheterization Hx of laparoscopic gastric banding Hx of hysterectomy Hx of tonsillectomy Family History Mother Hypertension Father COPD (chronic obstructive pulmonary disease) Clogged artery (heart) Sister Anxiety with depression Obesity Brother Arthritis Brother Obesity Sister No problems noted. Sister No problems noted. Daughter Anxiety with depression Daughter No problems noted. Social History Household Members: Spouse Housing: House Are you a primary resident care spec to a significant other at home: No Do you presently have visiting nurse or other home services: No Alcohol intake: current Alcohol intake frequency: holidays/special occasions only Patient Tobacco Use Status: Former Tobacco user service: No Physical Exam Vital Signs: BMI result Body Mass Index 37.1 Telehealth Telehealth Telehealth Platform: Telephone Location of provider rendering services: practice address Location of patient: address on file Patient Identification confirmed using: Name, : Yes Telehealth method: voice only Patient verbally consented to treatment: Yes Patient verbally consented to billing insurance company: Yes Patient informed of any privacy concerns related to visit: Yes Minutes spent on Phone/Video with Pt.: 30 Assessment & Plan Assessment & Plan (1) Obesity: Code(s): E66.9 - Obesity, unspecified Category: Medical Qualifiers: Body mass index: BMI 38.0-38.9 Obesity classification: adult class 2 (BMI 35 - 39.9) Obesity type: due to excess calories Serious obesity comorbidity presence: with serious comorbidity Qualified Code(s): E66.01 - Morbid (severe) obesity due to excess calories; Z68.38 - Body mass index [BMI] 38.0-38.9, adult Plan: 1. Plan for lap sleeve gastrectomy including upper GI endoscopy. All tests has been completed and reviewed and the patient is cleared for the surgery. ?If diaphragmatic or ventral hernias are present at time of surgery, these will be repaired laparoscopically as well. Risks and complications were discussed in detail including possible conversion to an open procedure, anastomotic leak, bleeding requiring transfusion, small bowel obstruction, , DVT and pulmonary embolism, cardiac, or pulmonary complications, as group home com plications such as anastomotic ulcer, insufficient weight loss and vitamin deficiencies. I emphasized the importance of close follow-up, adherence to instructions and good communication. So far she has proven to be an excellent communicator and very compliant with all our directions accomplishing a great weight loss. I believe that she is an excellent candidate and she is ready. 2. Preop prescriptions were provided and explained the purpose of each one. Need to be purchased preop. Start Pantoprazole now as you get it from the pharmacy, 1 pill per day. Sucralfate and Zofran are for after surgery as needed. 3. Bowel prep: please do 7 packets ?of Miralax mixing each one with a an 8oz glass of water, crystal light, gatorade zero, or propel ?on 07/05/24 and the same amount on 07/06/24. The Miralax you begin with one packet at a time in 8oz water or crystal light, gatorade zero, or propel ?as early in the day as you can and you do them back to back until you finish them. Continue the protein shakes during ?the bowel prep. 4. Needs to purchase 1oz medicine cups . 5. Needs to purchase Children's liquid Tylenol for postop pain control. 6. She needs to stop the Gabapentin as of TODAY 06/29/24. Avoid aspirin, motrin, Advil, Aleve, Ibuprofen, Naproxyn. Tylenol is OK. 7. She needs to purchase the Celebrate 4:1 protein shakes from the hospital's gift shop. 8. Will do basic preop blood work-up any day between Saturday06/30/24 and Saturday07/03/24 fasting for 12 hours and is scheduled to see the Anesthesiologist prior to the day of surgery. 9. Importance of adherence to postop folllow-up and recommendations was underscored and she understands that. 10. Continue to avoid food and bars and continue with 5 premade Unjury protein shakes (HALF bottle with 4oz almond milk) at 7am-9am, 10am-12pm, 1pm-3pm, 4pm- 6pm and 7pm-9pm one more WHOLE-BOTTLE premade Unjury protein shake at 10pm-12am 11. No soups, broths or V8 12. The patient's?medical?history has been reviewed and they are considered low risk for post op DVT and therefore DVT prophylaxis is not considered necessary. Travel after surgery was reviewed. The patient has not disclosed any travel plans during the first 30 days after surgery and they have been advised that within the first 30 days after surgery any bus, plane, train or car travel over 2 hours in duration is contraindicated due to the possibility of developing blood clots from immobility. Any travel, needs to include periods of ambulation of 10 minutes in duration every 2 hours.? Patient was instructed to discuss any plans for travel during this period with their bariatric surgeon.? 13. Use your CPAP daily and bring it to the hospital with your mask 14. Please take at the day of surgery the following medications: Only the Entresto with a sip of water 15. Stop any control pills and don't use them for one month after surgery 16. Absolutely no smoking or vaping, or marijuana until the surgery and for at least the first 4 weeks. Only nicotine patches are allowed. 17. Send me weight measurements on Saturday07/04/24 and then on Saturday07/07/24, the day of surgery before you go to the hospital. 18. Avoid any steroids by mouth for any reason. Let me know if someone prescribes them to you 19. These instructions supersede anything else you read in the handbook, anything you watched in videos or classes or you were told by any other provider. If there is any conflict, you follow the above instructions and nothing else. Orders: Orders Comprehensive Met. Panel Today E66.01 - Morbid (severe) obesity due to excess calories, G47.33 - Obstructive sleep apnea (adult) (pediatric), I10 - Essential (primary) hypertension, I42.8 - Other cardiomyopathies, K74.00 - Hepatic fibrosis, unspecified, K76.0 - Fatty (change of) liver, not elsewhere classified, R16.0 - Hepatomegaly, not elsewhere classified, Z68.38 - Body mass index [BMI] 38.0-38.9, adult, Z99.89 - Dependence on other enabling machines and devices TSH reflex Free T4 Today E66.01 - Morbid (severe) obesity due to excess calories, G47.33 - Obstructive sleep apnea (adult) (pediatric), I10 - Essential (primary) hypertension, I42.8 - Other cardiomyopathies, K74.00 - Hepatic fibrosis, unspecified, K76.0 - Fatty (change of) liver, not elsewhere classified, R16.0 - Hepatomegaly, not elsewhere classified, Z68.38 - Body mass index [BMI] 38.0-38.9, adult, Z99.89 - Dependence on other enabling machines and devices Partial Thromboplastin Time Today E66.01 - Morbid (severe) obesity due to excess calories, G47.33 - Obstructive sleep apnea (adult) (pediatric), I10 - Essential (primary) hypertension, I42.8 - Other cardiomyopathies, K74.00 - Hepatic fibrosis, unspecified, K76.0 - Fatty (change of) liver, not elsewhere classified, R16.0 - Hepatomegaly, not elsewhere classified, Z68.38 - Body mass index [BMI] 38.0-38.9, adult, Z99.89 - Dependence on other enabling machines and devices C Reactive Protein Today E66.01 - Morbid (severe) obesity due to excess calories, G47.33 - Obstructive sleep apnea (adult) (pediatric), I10 - Essential (primary) hypertension, I42.8 - Other cardiomyopathies, K74.00 - Hepatic fibrosis, unspecified, K76.0 - Fatty (change of) liver, not elsewhere classified, R16.0 - Hepatomegaly, not elsewhere classified, Z68.38 - Body mass index [BMI] 38.0-38.9, adult, Z99.89 - Dependence on other enabling machines and devices Prothrombin Time INR Today E66.01 - Morbid (severe) obesity due to excess calories, G47.33 - Obstructive sleep apnea (adult) (pediatric), I10 - Essential (primary) hypertension, I42.8 - Other cardiomyopathies, K74.00 - Hepatic fibrosis, unspecified, K76.0 - Fatty (change of) liver, not elsewhere classified, R16.0 - Hepatomegaly, not elsewhere classified, Z68.38 - Body mass index [BMI] 38.0-38.9, adult, Z99.89 - Dependence on other enabling machines and devices Type and Screen Today E66.01 - Morbid (severe) obesity due to excess calories, G47.33 - Obstructive sleep apnea (adult) (pediatric), I10 - Essential (primary) hypertension, I42.8 - Other cardiomyopathies, K74.00 - Hepatic fibrosis, unspecified, K76.0 - Fatty (change of) liver, not elsewhere classified, R16.0 - Hepatomegaly, not elsewhere classified, Z68.38 - Body mass index [BMI] 38.0- 38.9, adult, Z99.89 - Dependence on other enabling machines and devices Hemoglobin A1c Today E66.01 - Morbid (severe) obesity due to excess calories, G47.33 - Obstructive sleep apnea (adult) (pediatric), I10 - Essential (primary) hypertension, I42.8 - Other cardiomyopathies, K74.00 - Hepatic fibrosis, unspecified, K76.0 - Fatty (change of) liver, not elsewhere classified, R16.0 - Hepatomegaly, not elsewhere classified, Z68.38 - Body mass index [BMI] 38.0- 38.9, adult, Z99.89 - Dependence on other enabling machines and devices Lipid Panel Today E66.01 - Morbid (severe) obesity due to excess calories, G47.33 - Obstructive sleep apnea (adult) (pediatric), I10 - Essential (primary) hypertension, I42.8 - Other cardiomyopathies, K74.00 - Hepatic fibrosis, unspecified, K76.0 - Fatty (change of) liver, not elsewhere classified, R16.0 - Hepatomegaly, not elsewhere classified, Z68.38 - Body mass index [BMI] 38.0- 38.9, adult, Z99.89 - Dependence on other enabling machines and devices Complete Blood Count Auto Diff Today E66.01 - Morbid (severe) obesity due to excess calories, G47.33 - Obstructive sleep apnea (adult) (pediatric), I10 - Essential (primary) hypertension, I42.8 - Other cardiomyopathies, K74.00 - Hepatic fibrosis, unspecified, K76.0 - Fatty (change of) liver, not elsewhere classified, R16.0 - Hepatomegaly, not elsewhere classified, Z68.38 - Body mass index [BMI] 38.0-38.9, adult, Z99.89 - Dependence on other enabling machines and devices Insulin Today E66.01 - Morbid (severe) obesity due to excess calories, G47.33 - Obstructive sleep apnea (adult) (pediatric), I10 - Essential (primary) hypertension, I42.8 - Other cardiomyopathies, K74.00 - Hepatic fibrosis, unspecified, K76.0 - Fatty (change of) liver, not elsewhere classified, R16.0 - Hepatomegaly, not elsewhere classified, Z68.38 - Body mass index [BMI] 38.0- 38.9, adult, Z99.89 - Dependence on other enabling machines and devices Medications: New sucralfate 10 mL PO BID 600 mL 0RF K21.9 - Gastro-esophageal reflux disease without esophagitis pantoprazole 40 mg PO DAILY 90 tabs 0RF K21.9 - Gastro-esophageal reflux disease without esophagitis ondansetron Only take one every 12 hours as needed if you have nausea 4 mg PO Q6H PRN 20 tabs 0RF nausea and vomiting R11.0 - Nausea polyethylene glycol 3350 Mix each measuring cup with 8oz of water, Crystal light, or Gatorade zero, or Propel and do 7 measuring cups on 07/05/24 and another 7 measuring cups on 07/06/24 17 grams PO DAILY 238 grams 0RF Z01.818 - Encounter for other preprocedural examination
== END 2024-06-29 12:55 | disposition home or self-care (01) ==
LOC: HO.HBS 08:15
PROVIDERS: PCP Internal Medicine; Visit Provider Surgery
DX: E66.01 Morbid (severe) obesity due to excess calories (principal); Z68.38 Body mass index [BMI] 38.0-38.9, adult
CPT/HCPCS: 99499

== ENCOUNTER → 2024-06-29 08:15 | Outpatient (BNVA) | payer OTHER, SELFPAY | PROVIDERS: PCP Internal Medicine; Visit Provider Surgery ==

== ENCOUNTER 2024-06-30 09:56 | Outpatient (REF) | payer OTHER, SELFPAY ==
[2024-06-30 10:23] LABS: MANUAL DIFF FLAG NO
[2024-06-30 10:48] LABS: Basophils Absolute Auto 0.1 X10*3/uL (0.0-0.2); Basophils Percent Auto 0.8 % (0-2); Eosinophils Absolute Auto 0.2 X10*3/uL (0.0-0.4); Eosinophils Percent Auto 2.1 % (0-4); Hematocrit 36.6 % (37.0-47.0); Hemoglobin 12.4 g/dl (12.0-16.0); Imm Gran Abs Auto 0.04 X10*3/uL (0.00-0.03); Imm Gran Pct Auto 0.5 % (0.0-0.4); Lymphocytes Percent Auto 34.9 % (20-40); Mean Corpuscular HGB Conc 33.9 g/dl (31.0-35.0); Mean Corpuscular Hemoglobin 29.5 pg (27.0-33.0); Mean Corpuscular Volume 86.9 fL (80.0-98.0); Monocytes Absolute Auto 0.5 X10*3/uL (0.1-1.2); Monocytes Percent Auto 5.2 % (2-11); Neutrophils Absolute Auto 4.9 x10*3/uL (2.0-8.3); Neutrophils Percent Auto 56.5 % (45-73); Platelet Count 293 X10*3/uL (160-400); Red Blood Count 4.21 X10*6/uL (4.20-5.50); Red Cell Distribution Width 13.6 % (11.0-16.0); White Blood Count 8.7 X10*3/uL (4.8-10.8)
[2024-06-30 10:56] LABS: Estimated Average Glucose 100 mg/dL; Hemoglobin A1C 100.3403 umol/L; Hemoglobin A1c % 5.1 % (<6.0); Total Hemoglobin (HGBA1C) 3092.0713 umol/L
[2024-06-30 10:57] LABS: Prothrombin Time 12.1 SEC (10.9-12.4)
[2024-06-30 11:00] LABS: Partial Thromboplastin Time 40.6 SEC (26.0-36.8)
[2024-06-30 11:13] LABS: Alanine Aminotransferase 12 U/L (0-31); Albumin Level 4.7 g/dL (3.5-5.0); Alkaline Phosphatase 76 U/L (39-117); Anion Gap 14 (12-20); Aspartate Amino Transferase 10 U/L (5-31); Bilirubin Total 0.7 mg/dL (0.0-1.0); Blood Urea Nitrogen 22 mg/dL (9-16); C Reactive Protein 0.56 mg/dL (< or = 0.50); Calcium 10.7 mg/dL (8.4-10.2); Carbon Dioxide 27 mmol/L (22-29); Chloride 102 mmol/L (96-108); Cholesterol 241 mg/dL (<200); Estimated Glomerular Filt Rate > 60; Glucose Random 92 mg/dL (60-115); HDL Cholesterol 39 mg/dL (>40); LDL Cholesterol Calculated 146 mg/dL (<100); Potassium 4.4 mmol/L (3.3-5.1); Sodium 139 mmol/L (135-145); Total Protein 7.9 g/dL (6.5-8.0); Triglycerides 280 mg/dL (<150)
[2024-06-30 11:30] LABS: Insulin 12 uU/mL (2-29); TSH reflex Free T4 1.14 uIU/mL (0.32-4.0)
== END 2024-06-30 09:57 | disposition home or self-care (01) ==
LOC: HO.LAB 09:56
PROVIDERS: PCP Internal Medicine; Visit Provider Surgery
DX: E66.01 Morbid (severe) obesity due to excess calories (principal); I42.8 Other cardiomyopathies; K74.00 Hepatic fibrosis, unspecified; K76.0 Fatty (change of) liver, not elsewhere classified; R16.0 Hepatomegaly, not elsewhere classified; I10 Essential (primary) hypertension; G47.33 Obstructive sleep apnea (adult) (pediatric); Z68.38 Body mass index [BMI] 38.0-38.9, adult; Z99.89 Dependence on other enabling machines and devices
CPT/HCPCS: 36415; 80053; 80061; 83036; 83525; 84443; 85025; 85610; 85730; 86140

== ENCOUNTER 2024-07-06 11:46 | Outpatient (AMB) | payer OTHER, SELFPAY ==
[2024-07-06 11:52] VITALS: BP 106/60; PULSE 68; BMI 36.2
--- NOTE | 2024-07-06 11:52 | MHC.OFFVIS ---
Vital Signs 07/06/24 11:52 Height 5 ft 2 in Weight 198 lb BMI 36.2 BP 106/60 Blood Pressure Location Rt brachial Position Sitting Pulse 68 Pulse Source Monitor Intake Visit Reasons: New Medtronic- pre op Allergies Penicillins Allergy (Intermediate, Verified 07/03/24 11:01) FEVER, hives Iodinated Contrast Media [IV Contrast Dye] Adverse Reaction (Severe, Verified 07/03/24 11:01) severe back pain perflutren Adverse Reaction (Severe, Verified 07/03/24 11:01) Back Pain Medication List - Last Reconciled 07/06/24 by Reilly Talavera MD benzonatate 200 mg PO TID PRN calcium citrate 250 mg PO DAILY cholecalciferol (vitamin D3) 50 mcg PO DAILY cyanocobalamin (vitamin B-12) 1,000 mcg sublingual BID iloperidone (Fanapt) 6 mg PO BID ondansetron 4 mg PO Q6H PRN oxybutynin chloride ER 10 mg PO DAILY pantoprazole 40 mg PO DAILY polyethylene glycol 3350 17 grams PO DAILY sacubitril-valsartan 24-26 mg (Entresto) 1 tab PO BID sertraline 100 mg PO BID sucralfate 10 mL PO BID zolpidem 10 mg PO BEDTIME HPI Comments Details: Sandra returns for follow-up regarding cardiomyopathy. Originally, seen in consultation regarding preoperative risk stratification for weight loss surgery. EKG had shown left bundle-branch block. Subsequently, she underwent entire workup including echocardiogram, cardiac catheterization as well as cardiac MRI. Recently, she was seen by EP and underwent dual-chamber pacemaker implantation with conduction system pacing. After that, she states that she is substantially better. Planning to go for weight loss surgery tomorrow. [facility] Medical History (Updated 07/06/24 @ 12:35 by Reilly Talavera MD) Preoperative cardiovascular examination History of pacemaker (06/10/24) Pyelonephritis of right kidney (01/17/24) Bipolar disorder Hepatomegaly Steatosis, liver Liver fibrosis PTSD (post-traumatic stress disorder) Non-ischemic cardiomyopathy BMI 37.0-37.9, adult GERD (gastroesophageal reflux disease) Anxiety Depression Urinary tract infection CHF (congestive heart failure) Esophagitis determined by biopsy Cardiomyopathy Fibromyalgia Left bundle branch block Bipolar 1 disorder Sleep apnea HTN (hypertension) Morbid obesity Surgical History (Updated 07/03/24 @ 11:12 by Nelda Ellington RN) History of esophagogastroduodenoscopy (EGD) (02/04/24) Status post gastric banding S/P cardiac catheterization Hx of laparoscopic gastric banding Hx of hysterectomy Hx of tonsillectomy Family History Mother Hypertension Father COPD (chronic obstructive pulmonary disease) Clogged artery (heart) Sister Anxiety with depression Obesity Brother Arthritis Brother Obesity Sister No problems noted. Sister No problems noted. Daughter Anxiety with depression Daughter No problems noted. Social History (Updated 07/03/24 @ 11:02 by Nelda Ellington RN) Household Members: Spouse Housing: House Are you a primary patient care nursing assistant to a significant other at home: No Do you presently have visiting nurse or other home services: No Alcohol intake: current Alcohol intake frequency: holidays/special occasions only Patient Tobacco Use Status: Former Tobacco user Tobacco use type: Cigarette service: No Review of Systems Const Denies weakness ENT Denies dizziness Card Denies chest pain, Denies chest pain with activity, Denies syncope, Denies rapid heart rate, Denies pedal edema, Denies edema, Denies leg edema, Denies lightheadedness, Denies palpitations, Denies dyspnea, Denies dyspnea on exertion and Denies orthopnea Resp Denies cough, Denies dyspnea and Denies dyspnea on exertion GI Denies hematochezia and Denies change in stool character Musc Denies abnormal gait, Denies muscle cramps, Denies muscle weakness, Denies numbness, Denies radiating pain into limb and Denies tingling Neuro Denies abnormal gait, Denies dizziness, Denies syncope, Denies numbness, Denies tingling and Denies weakness Endo Denies palpitations Physical Exam Vital Signs: Last Vital Signs Pulse 68 07/06/24 11:52 BP 106/60 07/06/24 11:52 BMI result Body Mass Index 36.2 Const General: comfortable and no acute distress Orientation/consciousness: patient oriented x3 HEENT Other: Unremarkable Head: Yes normal to inspection Neck Neck: Yes normal visual inspection Chest Chest palpation & inspection: normal inspection of the chest Resp Auscultation: clear to auscultation bilaterally Cardio Palpation: normal PMI Heart sounds: S1 normal heart sound present, S2 normal heart sound present, no gallops, no murmurs and no rubs GI Palpation (GI): Soft to palpation Back/Spine/Pelvis Other: unremarkable Skin General skin exam: no rashes or lesions noted Neuro General: patient oriented x3 Extrem General: Yes normal to inspection Psych Mental Status: mental status grossly normal Office Procedures Cardiac Device Check Cardiac Device Check Details: Pacemaker interrogated today. Dual-chamber device, programmed DDD mode. Battery status more than 12 years. Normal lead parameters. Atrial pacing 21.5%. Ventricular pacing 99.7%. No significant arrhythmias. Possibly sinus tachycardia/atrial tachycardia but brief and lasting only seconds. Overall, normal device function. [id number] Cardiac Device Check, pacemaker dual lead Procedure code (CPT) selection complete Assessment & Plan Assessment & Plan (1) Cardiomyopathy: Code(s): I42.9 - Cardiomyopathy, unspecified Category: Medical Qualifiers: Cardiomyopathy type: other Qualified Code(s): I42.8 - Other cardiomyopathies (2) LBBB (left bundle branch block): Code(s): I44.7 - Left bundle-branch block, unspecified Category: Medical (3) Morbid obesity: Code(s): E66.01 - Morbid (severe) obesity due to excess calories Category: Medical (4) Preoperative cardiovascular examination: Code(s): Z01.810 - Encounter for preprocedural cardiovascular examination Category: Medical Plan Pertinent data reviewed. Echocardiogram with LVEF of 35-40%. Moderate global hypokinesis. No significant valvular issues. Cardiac catheterization shows normal coronaries. Cardiac MRI with LVEF of 40%. No significant delayed enhancement patterns. RVEF 54%. No significant valvular issues. Thought to be nonischemic cardiomyopathy. Holter monitor last year shows underlying sinus rhythm with an average rate of 85/Min. Around 22% the time, rate > 100/Min. This might be related to obesity/deconditioning. With regard to medications, she is only on Entresto. No longer on beta-blockers or spironolactone and it seems that they have been stopped. Her blood pressure also runs quite low and she may not be able tolerate any further meds. Clinically, no volume overload and not on any diuretics. With regard to the pacemaker, functioning normally. She states she feels much better after pacemaker implant. May proceed with weight loss surgery as planned. Intermediate cardiac risk. Avoid excessive IV fluids as it might precipitate congestive heart failure. We will follow her up in about 6 months' time with repeat echocardiogram and also interrogate her pacemaker. Remote pacemaker follow-up will be arranged. She will contact us with any concerns in the interim. Orders: Orders CA echo transthoracic complete 6 Months I42.8 - Other cardiomyopathies Coding Level of Care Code Est Pt Level 4 (20359) Diagnoses Other cardiomyopathy I42.8 Cardiomyopathy type: other LBBB (left bundle branch block) I44.7 Morbid obesity E66.01 Preoperative cardiovascular examination Z01.810 CPT Codes Cardiac Device Check - Cardiac Device 2: [id number] Cardiac Device Check, pacemaker dual lead ([id number])
== END 2024-07-06 12:36 | disposition home or self-care (01) ==
LOC: HO.HCS 11:46
PROVIDERS: PCP Internal Medicine; Visit Provider Internal Medicine
DX: I42.8 Other cardiomyopathies (principal); I44.7 Left bundle-branch block, unspecified; E66.01 Morbid (severe) obesity due to excess calories; Z01.810 Encounter for preprocedural cardiovascular examination
CPT/HCPCS: 93280; 99214

== ENCOUNTER → 2024-07-06 11:46 | Outpatient (BNVA) | payer OTHER, SELFPAY | PROVIDERS: PCP Internal Medicine; Visit Provider Internal Medicine | DX: Z01.810 Encounter for preprocedural cardiovascular examination (principal); I42.9 Cardiomyopathy, unspecified; I44.7 Left bundle-branch block, unspecified; E66.01 Morbid (severe) obesity due to excess calories; Z68.36 Body mass index [BMI] 36.0-36.9, adult; Z98.890 Other specified postprocedural states; Z45.018 Encounter for adjustment and management of other part of cardiac pacemaker | CPT/HCPCS: 93280; 99212 ==

== ENCOUNTER 2024-07-07 08:37 | Inpatient (IN) | payer OTHER, SELFPAY ==
[2024-07-03 11:04] VITALS: BMI 36.2
--- NOTE | 2024-07-06 13:34 | HO.ANESPROP2 ---
Documented by User: Amelia Man NP 07/06/24 13:38 HPI - Anesthesia Eval Consult details Narrative: 49yo F for Revision Gastric Band Removal to Gastrectomy Sleeve,EGD,possibel Diaphragmatic Hernia,possible Ventral Hernia,possible Open Pacer in situ (new 05/2024) Cardiac optimized May proceed with weight loss surgery as planned. Intermediate cardiac risk. Avoid excessive IV fluids as it might precipitate congestive heart failure. (Originally, seen in consultation regarding preoperative risk stratification for weight loss surgery. EKG had shown left bundle-branch block. Subsequently, she underwent entire workup including echocardiogram, cardiac catheterization as well as cardiac MRI. Recently, she was seen by EP and underwent dual-chamber pacemaker implantation with conduction system pacing. After that, she states that she is substantially better. Planning to go for weight loss surgery tomorrow.) [facility] Active Problems Active Problems: All Active Problems Preoperative cardiovascular examination (Acute) COVID-19 (Acute) S/P laparoscopy with lysis of adhesions (Acute) Obesity (Acute) Fibromyalgia (Acute) Cardiomyopathy (Acute) Left ventricular cardiac abnormality (Acute) Bipolar disorder current episode depressed (Acute) LBBB (left bundle branch block) (Acute) ADORE on CPAP (Acute) HTN (hypertension), benign (Acute) Bipolar 1 disorder (Acute) BMI 37.0-37.9, adult (Acute) Status post gastric banding (Acute) Hepatomegaly (Acute) Steatosis, liver (Acute) Liver fibrosis (Acute) PTSD (post-traumatic stress disorder) (Acute) Depression (Acute) Non-ischemic cardiomyopathy (Acute) Past Medical History Medical History Preoperative cardiovascular examination History of pacemaker (06/10/24) Pyelonephritis of right kidney (01/17/24) Bipolar disorder Hepatomegaly Steatosis, liver Liver fibrosis PTSD (post-traumatic stress disorder) Non-ischemic cardiomyopathy BMI 37.0-37.9, adult GERD (gastroesophageal reflux disease) Anxiety Depression Urinary tract infection CHF (congestive heart failure) Esophagitis determined by biopsy Cardiomyopathy Fibromyalgia Left bundle branch block Bipolar 1 disorder Sleep apnea HTN (hypertension) Morbid obesity Family History Family History Mother Hypertension Father COPD (chronic obstructive pulmonary disease) Clogged artery (heart) Sister Anxiety with depression Obesity Brother Arthritis Brother Obesity Sister No problems noted. Sister No problems noted. Daughter Anxiety with depression Daughter No problems noted. Family history of problems with anesthesia: No Surgical History Surgical History History of esophagogastroduodenoscopy (EGD) (02/04/24) Status post gastric banding S/P cardiac catheterization Hx of laparoscopic gastric banding Hx of hysterectomy Hx of tonsillectomy History of Problems with Anesthesia: No Social History Social History Household Members: Spouse Housing: House Are you a primary critical care nurse practitioner to a significant other at home: No Do you presently have visiting nurse or other home services: No Alcohol intake: current Alcohol intake frequency: holidays/special occasions only Patient Tobacco Use Status: Former Tobacco user Tobacco use type: Cigarette Smoked in Last 30 Days: No Use of substances other than those prescribed or required for medical reasons: No Have you been hit, kicked, punched, or otherwise hurt by someone within the past year? If so, by whom?: No Are you DNR?: No Advance Directives: No Advance Directives Information Provided: Yes Advance Directives on File: No Healthcare Proxy: No Recently lost weight without trying: No Nutrition Risks: No Nutritional Risk Poor oral hygiene: No service: No Meds Allergies Allergy/AdvReac Type Severity Reaction Status Date / Time Penicillins Allergy Intermediate FEVER, Verified 07/07/24 09:28 hives Iodinated Contrast Media AdvReac Severe severe Verified 07/03/24 11:01 [IV Contrast Dye] back pain perflutren AdvReac Severe Back Pain Verified 07/03/24 11:01 Home Medications ?Medication ?Instructions ?Recorded ?Confirmed ?Last Taken ?Type sertraline 100 mg tablet 100 mg PO BID 06/19/22 07/06/24 02/12/24 History calcium citrate 250 mg PO DAILY 02/03/24 07/06/24 02/12/24 History iloperidone 6 mg tablet (Fanapt) 6 mg PO BID 02/03/24 07/06/24 02/12/24 History sacubitril 24 mg-valsartan 26 mg 1 tab PO BID 02/03/24 07/06/24 02/13/24 History tablet (Entresto) zolpidem 10 mg tablet 10 mg PO BEDTIME 02/03/24 07/06/24 02/12/24 History cholecalciferol (vitamin D3) 50 50 mcg PO DAILY 03/12/24 07/06/24 Unknown History mcg (2,000 unit) capsule cyanocobalamin (vitamin B-12) 1,000 mcg sublingual BID 03/12/24 07/06/24 Unknown History 1,000 mcg sublingual tablet oxybutynin chloride 10 mg 10 mg PO DAILY 03/12/24 07/06/24 Unknown History tablet,extended release 24 hr gabapentin 100 mg capsule 100 mg PO TID 07/07/24 Unknown History gabapentin 300 mg capsule 300 mg PO TID 07/07/24 Unknown History metoprolol succinate 25 mg 25 mg PO DAILY 07/07/24 Unknown History tablet,extended release 24 hr pantoprazole 40 mg tablet,delayed 40 mg PO DAILY@0630 07/07/24 07/07/24 Unknown History release Exam Height,Weight and Vital Signs: Height 5 ft 2 in Weight 89.811 kg Pertinent Lab Results Pertinent Lab Results: Laboratory Tests 06/30/24 10:15 Blood Type O Positive Antibody Screen NEGATIVE Laboratory Tests 06/30/24 10:21 WBC 8.7 Hgb 12.4 Hct 36.6 L Plt Count 293 Sodium 139 Potassium 4.4 Chloride 102 Carbon Dioxide 27 BUN 22 H Creatinine 0.98 Narrative Narrative: Cardiac Device Check 06/2024 Details: Pacemaker interrogated today. Dual-chamber device, programmed DDD mode. Battery status more than 12 years. Normal lead parameters. Atrial pacing 21.5%. Ventricular pacing 99.7%. No significant arrhythmias. Possibly sinus tachycardia/atrial tachycardia but brief and lasting only seconds. Overall, normal device function. [id number]-[id number] Cardiac Device Check, pacemaker dual lead Procedure code (CPT) selection complete Echocardiogram with LVEF of 35-40%. Moderate global hypokinesis. No significant valvular issues. Cardiac catheterization shows normal coronaries. Cardiac MRI with LVEF of 40%. No significant delayed enhancement patterns. RVEF 54%. No significant valvular issues. Thought to be nonischemic cardiomyopathy. Holter monitor last year shows underlying sinus rhythm with an average rate of 85/Min. Around 22% the time, rate > 100/Min. This might be related to obesity/deconditioning. Assessment and Plan Assessment Anesthesia Assessment: Chart Reviewed Final Anesthetic Review Family History of Problems with Anesthesia: No History of Problems with Anesthesia: No Documented by User: Estefanía Lin MD 07/07/24 11:04 [facility] Past Medical History Medical History Preoperative cardiovascular examination History of pacemaker (06/10/24) Pyelonephritis of right kidney (01/17/24) Bipolar disorder Hepatomegaly Steatosis, liver Liver fibrosis PTSD (post-traumatic stress disorder) Non-ischemic cardiomyopathy BMI 37.0-37.9, adult GERD (gastroesophageal reflux disease) Anxiety Depression Urinary tract infection CHF (congestive heart failure) Esophagitis determined by biopsy Cardiomyopathy Fibromyalgia Left bundle branch block Bipolar 1 disorder Sleep apnea HTN (hypertension) Morbid obesity Family History Family History Mother Hypertension Father COPD (chronic obstructive pulmonary disease) Clogged artery (heart) Sister Anxiety with depression Obesity Brother Arthritis Brother Obesity Sister No problems noted. Sister No problems noted. Daughter Anxiety with depression Daughter No problems noted. Surgical History Surgical History History of esophagogastroduodenoscopy (EGD) (02/04/24) Status post gastric banding S/P cardiac catheterization Hx of laparoscopic gastric banding Hx of hysterectomy Hx of tonsillectomy Social History Social History Household Members: Spouse Housing: House Are you a primary critical care nurse practitioner to a significant other at home: No Do you presently have visiting nurse or other home services: No Alcohol intake: current Alcohol intake frequency: holidays/special occasions only Patient Tobacco Use Status: Former Tobacco user Tobacco use type: Cigarette Smoked in Last 30 Days: No Use of substances other than those prescribed or required for medical reasons: No Have you been hit, kicked, punched, or otherwise hurt by someone within the past year? If so, by whom?: No Are you DNR?: No Advance Directives: No Advance Directives Information Provided: Yes Advance Directives on File: No Healthcare Proxy: No Recently lost weight without trying: No Nutrition Risks: No Nutritional Risk Poor oral hygiene: No service: No Meds Allergies Allergy/AdvReac Type Severity Reaction Status Date / Time Penicillins Allergy Intermediate FEVER, Verified 07/07/24 09:28 hives Iodinated Contrast Media AdvReac Severe severe Verified 07/03/24 11:01 [IV Contrast Dye] back pain perflutren AdvReac Severe Back Pain Verified 07/03/24 11:01 Home Medications ?Medication ?Instructions ?Recorded ?Confirmed ?Last Taken ?Type sertraline 100 mg tablet 100 mg PO BID 06/19/22 07/06/24 02/12/24 History calcium citrate 250 mg PO DAILY 02/03/24 07/06/24 02/12/24 History iloperidone 6 mg tablet (Fanapt) 6 mg PO BID 02/03/24 07/06/24 02/12/24 History sacubitril 24 mg-valsartan 26 mg 1 tab PO BID 02/03/24 07/06/24 02/13/24 History tablet (Entresto) zolpidem 10 mg tablet 10 mg PO BEDTIME 02/03/24 07/06/24 02/12/24 History cholecalciferol (vitamin D3) 50 50 mcg PO DAILY 03/12/24 07/06/24 Unknown History mcg (2,000 unit) capsule cyanocobalamin (vitamin B-12) 1,000 mcg sublingual BID 03/12/24 07/06/24 Unknown History 1,000 mcg sublingual tablet oxybutynin chloride 10 mg 10 mg PO DAILY 03/12/24 07/06/24 Unknown History tablet,extended release 24 hr gabapentin 100 mg capsule 100 mg PO TID 07/07/24 Unknown History gabapentin 300 mg capsule 300 mg PO TID 07/07/24 Unknown History metoprolol succinate 25 mg 25 mg PO DAILY 07/07/24 Unknown History tablet,extended release 24 hr pantoprazole 40 mg tablet,delayed 40 mg PO DAILY@0630 07/07/24 07/07/24 Unknown History release Exam Airway Mallampati Class: II TM Dist: >3cm Neck ROM: Full Heart: rrr Lungs: cta Assessment and Plan Final Anesthetic Review NPO: Yes ASA Class: III Final Preanesthetic Review: No Changes in Pt Med Stat, Meds/Allgs Chart Reviewed, Consent Obtained/Reviewed and Anes Risks/Benef Reviewed Patient Risk: Intermediate Procedure Risk: Intermediate Anesthetic Plan Anesthetic Plan: GA Disposition: Standard PACU
[2024-07-07] VITALS (13 sets, daily range): BP systolic 97–132; BP diastolic 55–69; PULSE 61–78; RESP 13–19; TEMP 36.3–36.7; O2SAT 96–100
--- OUTSIDE RECORDS SUMMARY | 2024-07-07 08:40 | XMS_ITS ---
Author Organization [facility] Address [address] [place] [id number] Care Team Providers Care Clinical Safety Specialist Name Role Phone AkashAndre bansal Primary Care Provider Raffy Schmid Unavailable [phone] Shane CANO, Amira Unavailable Unavailable REASON FOR VISIT asking for Trazodone MEDICATIONS Medication SIG (Take, Route, Frequency, Duration) Notes Start Date End Date Status Gabapentin 300 MG 1 tablet Oral 3 time s a day for 30 days Active traZODone HCl 50 MG 1 tablet at bedtime as needed Orally Once a day for 30 days 05/06/2024 Active Spironolactone 25 MG TAKE 1/2 TABLET JUAN LY (12.5 MG TOTAL) BY MOUTH Oral for 90 Active Entresto 24-26 MG 1 tablet Orally Twic e a day for 30 day(s) Active Vitamin D3 25 MCG (1000 UT) 1 capsule Or ally Once a day for 30 day(s) Active Metoprolol Succinate 25 MG 1 capsule Ora lly Once a day for 30 day(s) Active Sertraline HCl 200 MG 1 capsule Orally O nce a day Active Fanapt 6 MG 1 tablet Orally Twic e a day for 30 day(s) Active PROBLEMS Problem Type ICD Code Onset Dates Problem Status W/U Status Risk SNOMED Code Notes Problem Primary insomnia (F51.01) Active confirmed 8167681 Encounters Encounter Location Date Provider Diagnosis [facility] [address] [phone] 04/27/2024 Raffy Green Primary insomnia F51.01 ASSESSMENTS Encounter Date Diagnosis Assessment Notes Treatment Notes Treatment Clinical Notes 04/27/2024 Primary insomnia (ICD-10 - F51.01) PLAN OF TREATMENT Medication Medication Name Sig Start Date Stop Date Notes traZODone HCl 50 MG 1 tablet at bedtime as needed Orally Once a day for 30 days 05/06/2024 Next Appt Details Provider Name:Raffy Brennan kamila, 10/21/2024 11:30:00 AM, [address] [facility], [address], [place], [place], [id number], Progress Notes * Sandra CALDERONDOB:1975 (49 yo F)Acc No.[id number]:04/27/2024 Patient:??Sandra CALDERON :1975?Age:49 Y?Sex:Fe male Address:[address] [place] [address], [place], [address] * Refills?? Start traZODone HCl Tablet, 50 MG, Orally, 30, 1 tablet at bedtime as needed, Once a day, 30 days, Refills=1 Subjective: * Chief Complaints: * ?asking for Trazodone * Medical History:?? * Surgical History:?? * Hospitalization/Major Diagno stic Procedure:?? * Medications:??TakingEntresto 24-26 MG Tablet 1 tablet Orally Twice a day Vitamin D3 25 MCG (1000 UT) Capsule 1 capsule Orally Once a day Fanapt 6 MG Tablet 1 tablet Orally Twice a day Metoprolol Succinate 25 MG Capsule ER 24 Hour Sprinkle 1 capsule Orally Once a day Sertraline HCl 200 MG Capsule 1 capsule Orally Once a day Spironolactone 25 MG Tablet TAKE 1/2 TABLET DAILY (12.5 MG TOTAL) BY MOUTH Oral Gabapentin 300 MG Capsule 1 tablet Oral 3 times a day Taking Entresto 24-26 MG Tablet 1 tablet Orally Twice a day Taking Vitamin D3 25 MCG (1000 UT) Capsule 1 capsule Orally Once a day Taking Fanapt 6 MG Tablet 1 tablet Orally Twice a day Taking Metoprolol Succinate 25 MG Capsule ER 24 Hour Sprinkle 1 capsule Orally Once a day Taking Sertraline HCl 200 MG Capsule 1 capsule Orally Once a day Taking Spironolactone 25 MG Tablet TAKE 1/2 TABLET DAILY (12.5 MG TOTAL) BY MOUTH Oral Taking Gabapentin 300 MG Capsule 1 tablet Oral 3 times a day Objective: Assessment: * Assessment: 1.??Primary insomnia - F51.0 1 (Primary)?? Plan: * Treatment: * Procedure Codes:?? * true * Date:??
--- OUTSIDE RECORDS SUMMARY | 2024-07-07 08:40 | XMS_ITS ---
Author Organization [facility] [place] Address [address] [place], [place] [id number] Care Team Providers Care Miller Wood Flour Name Role Phone SachinbreaAndre Primary Care Provider Raffy Schmid Unavailable [phone] Shane CANO, Amira Unavailable Unavailable ALLERGIES Allergen (clinical drug ingredient) Drug/Non Drug Allergy documented on EMR Reaction Allergy Type Onset Date Status Penicillin rash Drug Allergy Active REASON FOR VISIT 6 sat f/u- card MEDICATIONS Medication SIG (Take, Route, Frequency, Duration) Notes Start Date End Date Status Spironolactone 25 MG TAKE 1/2 TABLET JUAN LY (12.5 MG TOTAL) BY MOUTH Oral for 90 Active Sertraline HCl 200 MG 1 capsule Orally O nce a day Active Metoprolol Succinate 25 MG 1 capsule Ora lly Once a day for 30 day(s) Active Entresto 24-26 MG 1 tablet Orally Twic e a day for 30 day(s) Active Fanapt 6 MG 1 tablet Orally Twic e a day for 30 day(s) Active Vitamin D3 25 MCG (1000 UT) 1 capsule Or ally Once a day for 30 day(s) Active SOCIAL [...] W/U Status Risk SNOMED Code Notes Problem Chronic systolic congestive heart failure (I50.22) Active confirmed [id number] VITAL SIGNS Weight 232 lbs 04/17/2023 Blood pressure systolic 112 mm Hg 04/17/20 23 Blood pressure diastolic 72 mm Hg 023 Heart Rate 68 /min 04/17/2023 Respiratory Rate 16 /min 04/17/2023 Height 63 in 04/17/2023 BMI 41.09 kg/m2 04/17/2023 Encounters Encounter Location Date Provider Diagnosis [facility] [address] [place], [place] [id number] 04/17/2023 Raffy Green Obesity (BMI 30-39.9 ) E66.9 ; Obstructive sleep apnea (adult) (pediatric) G47.33 ; Primary hypertension I10 ; Excessive daytime sleepiness G47.19 ; Hypoxemia R09.02 and Chronic systolic congestive heart failure I50.22 ASSESSMENTS Encounter Date Diagnosis Assessment Notes Treatment Notes Treatment Clinical Notes 04/17/2023 Obesity (BMI 30-39.9) (ICD-10 - E66.9) Educated about the correction between ADORE and obesity 04/17/2023 Obstructive sleep apnea (adult) (pediatric) (ICD-10 - G47.33) Patient is using her CPAP machine and benefiting from using it, we'll continue on the same settings auto CPAP 10-20, CPAP care instructions were provided 04/17/2023 Primary hypertension (ICD-10 - I10) Controlled with metoprolol succinate 25 04/17/2023 Excessive daytime sleepiness (ICD-10 - G47.19) Controlled with CPAP therapy 04/17/2023 Hypoxemia (ICD-10 - R09.02) Overnight pulse oximetry on 11/14/2022: oxygen saturation was above 90 % for 99.8% of the study 04/17/2023 Chronic systolic congestive heart failure (ICD-10 - I50.22) PLAN OF TREATMENT Treatment Notes Assessment Notes Obesity (BMI 30-39.9) Educated about the correction between ADORE and obesity Obstructive sleep apnea (adult) (pediatr ic) Patient is using her CPAP machine and benefiting from using it, we'll continue on the same settings auto CPAP 10-20, CPAP care instructions were provided Primary hypertension Controlled with met oprolol succinate 25 Excessive daytime sleepiness Controlled with CPAP therapy Hypoxemia Overnight pulse oxim etry on 11/14/2022: oxygen saturation was above 90 % for 99.8% of the study Next Appt Details Follow Up: 1 Year, Reason: Provider Name:Raffy treviño, 10/21/2024 11:30:00 AM, [address], [address], [place], [place], [id number], Progress Notes * Sandra GONZALEZDOB:1975 ( 48 yo F)Acc No.[id number]:04/17/2023 F/U [place] Patient:??Sandra Gonzalez Provider:??Raffy Green MD :1975?Age:48 Y?Sex:Fe male Date:04/17/2023 Address:[address] [place] [address], [facility] [id number] Pcp:Andre Ryan Subjective: * Chief Complaints: * ?6 mon f/u- card * HPI: ?History of Present Illness:? 48 -year-old female with history of obstructive sleep apnea and morbid obesity here for follow-up ?She was diagnosed with home sleep test on 01/18/2022: AHI 12, RDI 23, oxygen gucci 78.6%, patient spent 5% of the study with oxygen saturation below 90, events happened in clusters which is suggestive for REM dominant obstructive sleep apnea. ?Currently, on auto CPAP 10-20 with medium ResMed air touch F 20 full face mask. Usually she is compliant with her machine, recently she has been struggling because of dry mouth, bedtime around midnight, falls asleep within 1 hour because of her back pain, she wakes up once to go to the bathroom, she gets up around 8 AM, no morning headache, she has dry mouth, drinks 1 large cup coffee of coffee in the morning, doesn't take naps. ?Compliance report was downloaded and discussed with the patient 01/17/2023 to 04/16/2023: usage more than 4 hours 61%, average usage on days used 6 hours and 35 minutes, residual AHI 0.4, no significant leak ?She gained 5 pounds otherwise no major change in her health. ?[place] sleepiness scale:?Sitting and reading??0.??Watching TV??0.??Sitting inactive in a public place??0.??Being a passenger in car longer than 1 hour??0.??Lying down in the afternoon??0.??Sitting and Talking with someone??0.??Sitting quietly after lunch (no alcohol)??0.??Stopped for a few minutes in traffic while driving??0.??Total??0.?? * ROS:?Follow up ROS 2:?General??No fever, chills, sweats, No excessive fatigue, Appetite good, weight stable.??EENT??No change in vision, No ocular discharge or pruritis, No change in hearing, Sense of smell/taste intact, No sore throat.??Cardiac??No chest pain, pressure or tightness, No extremity edema, No lightheadedness, No orthopnea or PND.??Respiratory??No dyspnea, wheezing, chest tightness, cough or sputum production ?.??GI??No abdominal pain, nausea, vomiting or diarrhea. No sx of MARGAUX.??Musculoskeletal??No acute arthralgias or myalgias.??Dermatologic??No rash, eczema or urticaria.??Neurologic??No headache or dizziness.??Psychiatric??No complaint of depression or anxiety.??Hematology/Lymph??No swollen glands, No easy bruising.??Actively smoking??Yes ?.? * Medical History:?? * Surgical History:??Tonsillec dequan Hysterectomy Lap band surgery * Hospitalization/Major Diagno stic Procedure:??Denies Past Hospitalization * Family History:??Father: dec eased 72 yrs, SCLC , [place], diagnosed with Hypertension, Cancer.??Mother: alive.?? * Social History:??Marital sta tus: . Children: Two. Occupation: Works for for [employer]. Tobacco??Are you a:??current smoker,??How often do you smoke cigarettes???some days, but not every day,??How many cigarettes a day do you smoke???5 or less.??Alcohol: Rare. Recreational drug use: None. Exercise: Yes, Yoga. * Medications:??TakingEntresto 24-26 MG Tablet 1 tablet Orally Twice a dayVitamin D3 25 MCG (1000 UT) Capsule 1 capsule Orally Once a dayFanapt 6 MG Tablet 1 tablet Orally Twice a dayMetoprolol Succinate 25 MG Capsule ER 24 Hour Sprinkle 1 capsule Orally Once a daySertraline HCl 200 MG Capsule 1 capsule Orally Once a daySpironolactone 25 MG Tablet TAKE 1/2 TABLET DAILY (12.5 MG TOTAL) BY MOUTH Oral Taking Entresto 24-26 MG Tablet 1 tablet Orally Twice a dayTaking Vitamin D3 25 MCG (1000 UT) Capsule 1 capsule Orally Once a dayTaking Fanapt 6 MG Tablet 1 tablet Orally Twice a dayTaking Metoprolol Succinate 25 MG Capsule ER 24 Hour Sprinkle 1 capsule Orally Once a dayTaking Sertraline HCl 200 MG Capsule 1 capsule Orally Once a dayTaking Spironolactone 25 MG Tablet TAKE 1/2 TABLET DAILY (12.5 MG TOTAL) BY MOUTH Oral DiscontinuedVitamin B12 500 MCG Tablet as directed Orally Once a dayMedication List reviewed and reconciled with the patientDiscontinued Vitamin B12 500 MCG Tablet as directed Orally Once a dayMedication List reviewed and reconciled with the patient * Allergies:??Penicillin: rash - Allergyno[Allergies Verified] Objective: * Vitals:??Wt:232, BP:112/72, HR:68, RR:16, O2 sat:98%RA, Ht:63, BMI:41.09. * Examination: ?General Physical Exam: ?General Appearance:??in no acute distress.??Chest??Normal shape and expansion with respiration.??Lungs??Respiratory rate is normal, Breath sounds are clear bilaterally.??Heart:??Normal rate, regular rhythm, Normal S1, normal S2, no murmurs, rub, gallop.??Abdomen??Soft , non tender.??Extremities??No digital clubbing, acrocyanosis or peripheral edema.??Skin:??Warm and dry, No rash on partial skin exam.??Neuro:??A & O x 3, Grossly nonfocal motor and sensory exam.??Data??All?data?and?notes?provided?were?personally?reviewed ?Home?sleep?test?on?01/18/2022:?AHI?12,?RDI?23,?oxygen?gucci?78.6%,?patien t?spent?5%?of?the?study?with?oxygen?saturation?below?90,?events?happened?in?clus ters?which?is?suggestive?for?REM?dominant?obstructive?sleep?apnea ?Compliance report 07/20/2022 to 10/17/2022: usage more than 4 hours 94%, average usage on days used 7 hours and 59 minutes, residual AHI 0.9, no significant leak ?Compliance report 01/17/2023 to 04/16/2023: usage more than 4 hours 61%, average usage on days used 6 hours and 35 minutes, residual AHI 0.4, no significant leak ?.? Assessment: * Assessment: 1.??Obstructive sleep apnea (adult) (pediatric) - G47.33 (Primary)??2.??Obesity (BMI 30-39.9) - E66.9??3.??Primary hypertension - I10??4.??Excessive daytime sleepiness - G47.19??5.??Hypoxemia - R09.02??6.??Chronic systolic congestive heart failure - I50.22?? Plan: * Treatment: 2.??Obesity (BMI 30-39.9)?? Notes: Educated about the correction between ADORE and obesity.? 3.??Primary hypertension?? Notes: Controlled with metoprolol succinate 25.? 4.??Excessive daytime sleepi ness?? Notes: Controlled with CPAP therapy.? 5.??Hypoxemia?? Notes: Overnight pulse oximetry on 11/14/2022: oxygen saturation was above 90 % for 99.8% of the study.? * Procedure Codes:?? * Preventive Medicine:?Counseling:??DIET -??Above Normal BMI Follow-up??Dietary management education, guidance, and counseling.?? * Follow Up:??1 Year * Images: * Sign off status: Completed true * Provider:??Raffy Green MD Date:??0 04/17/2023 History and Physical Notes * HPI (History of Present Illness) Category Sub-Category Detail Notes [place] sleepiness scale Sitting and reading 0 Watching TV 0 Sitting inactive in a public place 0 Being a passenger in car longer than 1 h our 0 Lying down in the afternoon 0 Sitting and Talking with someone 0 Sitting quietly after lunch (no alcohol) 0 Stopped for a few minutes in traffic whi le driving 0 Total 0 Examination Category Sub-Category Detail Notes General Physical Exam Heart: Normal rat e, regular rhythm, Normal S1, normal S2, no murmurs, rub, gallop Lungs Respiratory rate is normal, Breath sounds are clear bilaterally General Appearance: in no acute distress Chest Normal shape and exp ansion with respiration Extremities No digital clubbing, acrocyanosis or peripheral edema Skin: Warm and dry, No bj h on partial skin exam Neuro: A & O x 3, Grossly n onfocal motor and sensory exam Abdomen Soft , non tender Data All data and notes p rovided were personally reviewed Home sleep test on 01/18/2022: AHI 12, RDI 23, oxygen gucci 78.6%, patient spent 5% of the study with oxygen saturation below 90, events happened in clusters which is suggestive for REM dominant obstructive sleep apnea Compliance report 07/20/2022 to 10/17/2022: usage more than 4 hours 94%, average usage on days used 7 hours and 59 minutes, residual AHI 0.9, no significant leak Compliance report 01/17/2023 to 04/16/2023: usage more than 4 hours 61%, average usage on days used 6 hours and 35 minutes, residual AHI 0.4, no significant leak
--- OUTSIDE RECORDS SUMMARY | 2024-07-07 08:40 | XMS_ITS ---
Author Organization [facility] [place] Address [address] [place], [place] [phone] Care Team Providers Care Fuel Dock Attendant Name Role Phone SachinbreaAndre Primary Care Provider UnavailRaffy Moreno Unavailable [phone] Shane CANO, Amira Unavailable Unavailable ALLERGIES Allergen (clinical drug ingredient) Drug/Non Drug Allergy documented on EMR Reaction Allergy Type Onset Date Status Penicillin rash Drug Allergy Active REASON FOR VISIT 1 Year Follow Up-CARD MEDICATIONS Medication SIG (Take, Route, Frequency, Duration) Notes Start Date End Date Status Entresto 24-26 MG 1 tablet Orally Twic e a day for 30 day(s) Active Vitamin D3 25 MCG (1000 UT) 1 capsule Or ally Once a day for 30 day(s) Active Spironolactone 25 MG TAKE 1/2 TABLET JUAN LY (12.5 MG TOTAL) BY MOUTH Oral for 90 Active Fanapt 6 MG 1 tablet Orally Twic e a day for 30 day(s) Active Gabapentin 300 MG 1 tablet Oral 3 time s a day for 30 days Active Sertraline HCl 200 MG 1 capsule [...] do you smoke? 5 or les s VITAL SIGNS Weight 211 lbs 04/20/2024 Blood pressure systolic 106 mm Hg 04/20/20 24 Blood pressure diastolic 72 mm Hg 024 Heart Rate 72 /min 04/20/2024 Respiratory Rate 16 /min 04/20/2024 Height 63 in 04/20/2024 BMI 37.37 kg/m2 04/20/2024 Encounters Encounter Location Date Provider Diagnosis [facility] [address] [place], [place] [phone] 04/20/2024 Raffy Green Obesity (BMI 30-39.9 ) E66.9 ; Obstructive sleep apnea (adult) (pediatric) G47.33 ; Primary hypertension I10 ; Excessive daytime sleepiness G47.19 and Hypoxemia R09.02 ASSESSMENTS Encounter Date Diagnosis Assessment Notes Treatment Notes Treatment Clinical Notes 04/20/2024 Obesity (BMI 30-39.9) (ICD-10 - E66.9) Weight loss, diet and exercise were discussed 04/20/2024 Obstructive sleep apnea (adult) (pediatric) (ICD-10 - G47.33) She is using her CPAP machine and benefiting from using it, for some reason somebody changed her CPAP pressure to CPAP pressure 7, last year she was on auto CPAP 10-20, so I will refer her to do CPAP titration at [facility], I changed her CPAP to auto CPAP 10-20 04/20/2024 Primary hypertension (ICD-10 - I10) Controlled with metoprolol succinate 25 04/20/2024 Excessive daytime sleepiness (ICD-10 - G47.19) Improved with CPAP therapy 04/20/2024 Hypoxemia (ICD-10 - R09.02) Overnight pulse oximetry on 11/14/2022: oxygen saturation was above 90 % for 99.8% of the study PLAN OF TREATMENT Treatment Notes Assessment Notes Obesity (BMI 30-39.9) Weight loss, diet and exercise were discussed Obstructive sleep apnea (adult) (pediatr ic) She is using her CPAP machine and benefiting from using it, for some reason somebody changed her CPAP pressure to CPAP pressure 7, last year she was on auto CPAP 10-20, so I will refer her to do CPAP titration at [facility], I changed her CPAP to auto CPAP 10-20 Primary hypertension Controlled with met oprolol succinate 25 Excessive daytime sleepiness Improved wi th CPAP therapy Hypoxemia Overnight pulse oxim etry on 11/14/2022: oxygen saturation was above 90 % for 99.8% of the study Future Test Test Name Order Date SLEEP STUDY-CPAP Titration 05/18/2024 Next Appt Details Follow Up: 6 Months, CPAP ti tration at [facility], Reason: Provider Name:Akbar Anu treviño, 10/21/2024 11:30:00 AM, [address], [address], [place], [place], [id number], Progress Notes * KVNG SandraDOB:1975 (49 yo F)Acc No.[id number]:04/20/2024 F/U [place] Patient:??Sandra CALDERON Provider:??Raffy Green MD :1975?Age:49 Y?Sex:Fe male Date:04/20/2024 Address:[address] [place] [address], [place], [id number] Pcp:Andre Ryan Subjective: * Chief Complaints: * ?1 Year Follow Up-CARD * HPI: ?History of Present Illness:? 49 -year-old female with obstructive sleep apnea and obesity here for follow-up. ?Diagnosed with HST on 01/18/2022: AHI 12, RDI 23, oxygen gucci 78.6%, patient spent 5% of the study with oxygen saturation below 90, events happened in clusters which is suggestive for REM dominant obstructive sleep apnea. ?Currently, on CPAP pressure 7 with medium ResMed air touch F 20 full face mask. She is compliant with her machine, bedtime between midnight and 1 AM, struggles to fall asleep, sleeps with her with the machine, gets up between 7 and 8 AM, no morning headache, she has dry mouth sometimes, drinks 2 cups of coffee in the morning, doesn't take naps. ?Compliance report was downloaded and discussed with the patient 03/21/2024 to 04/19/2024: Usage more than 4 hours 93%, average usage on days used 7 hours and 57 minutes, residual AHI 5, no significant leak ?She lost 21 pounds since last visit, otherwise no major change in her house, during the day she feels tired, exhausted and sleepy with ESS of 13. ?Obstructive Sleep Apnea:?Sleep Interim History:??Sleep Apnea symptoms assessed:??Yes, with presence of snoring,??Apnea hypopnea index (AHI)??12,??Respiratory disturbance index (RDI)??23,??Positive Airway pressure therapy prescribed??Yes,??Objective measurement of adherence to positive airway pressure therapy documented??Yes.?[place] sleepiness scale:?Sitting and reading??2 moderate chance of dozing or sleeping.??Watching TV??2 moderate chance of dozing or sleeping.??Sitting inactive in a public place??2 moderate chance of dozing or sleeping.??Being a passenger in car longer than 1 hour??3 high chance of dozing or sleeping.??Lying down in the afternoon??3 high chance of dozing or sleeping.??Sitting and Talking with someone??0 would never doze or sleep.??Sitting quietly after lunch (no alcohol)??1 slight chance of dozing or sleeping.??Stopped for a few minutes in traffic while driving??0 would never doze or sleep.??Total??13.?? * ROS:?Follow up ROS 2:?General??No fever, chills, sweats, No excessive fatigue, Appetite good, weight stable.??EENT??No change in vision, No ocular discharge or pruritis, No change in hearing, Sense of smell/taste intact, No sore throat.??Cardiac??No chest pain, pressure or tightness, No extremity edema, No lightheadedness, No orthopnea or PND.??Respiratory??No dyspnea, wheezing, chest tightness, cough or sputum production.??GI??No abdominal pain, nausea, vomiting or diarrhea. No sx of MARGAUX.??Musculoskeletal??No acute arthralgias or myalgias.??Dermatologic??No rash, eczema or urticaria.??Neurologic??No headache or dizziness.??Psychiatric??No complaint of depression or anxiety.??Hematology/Lymph??No swollen glands, No easy bruising.??Actively smoking??Yes.? * Medical History:?? * Surgical History:??Tonsillec dequan Hysterectomy Lap band surgery * Hospitalization/Major Diagno stic Procedure:??Denies Past Hospitalization * Family History:??Father: dec eased 72 yrs, SCLC , [place], diagnosed with Hypertension, Cancer.??Mother: alive.?? * Social History:??Marital sta tus: . Children: Two. Occupation: Works for for [employer]. Tobacco??Are you a:??current smoker,??How often do you [...] 1 tablet Oral 3 times a day Medication List reviewed and reconciled with the patientTaking Entresto 24-26 MG Tablet 1 tablet Orally [...] 1 tablet Oral 3 times a day Medication List reviewed and reconciled with the patient * Allergies:??Penicillin: rash - Allergyno[Allergies Verified] Objective: * Vitals:??Wt: 211, BP:106/72, HR: 72, RR: 16, O2 sat: 99%RA, Ht: 63, BMI:37.37. * Examination: ?General Physical Exam: ?General Appearance:??in [...] minutes, residual AHI 0.4, no significant leak ?Compliance report 03/21/2024 to 04/19/2024: Usage more than 4 hours 93%, average usage on days used 7 hours and 57 minutes, residual AHI 5, no significant leak ?.? Assessment: * Assessment: 1.??Obstructive sleep apnea (adult) (pediatric) - G47.33 (Primary)??2.??Obesity (BMI 30-39.9) - E66.9??3.??Primary hypertension - I10??4.??Excessive daytime sleepiness - G47.19??5.??Hypoxemia - R09.02?? Plan: * Treatment: 2.??Obesity (BMI 30-39.9)?? Notes: Weight loss, diet and exercise were discussed? 3.??Primary hypertension?? Notes: Controlled with metoprolol succinate 25? 4.??Excessive daytime sleepi ness?? Notes: Improved with CPAP therapy? 5.??Hypoxemia?? Notes: Overnight pulse oximetry on 11/14/2022: oxygen saturation was above 90 % for 99.8% of the study? * Procedure Codes:?? * Preventive Medicine:?Counseling:??DIET -??Above Normal BMI Follow-up??Dietary management education, guidance, and counseling.?? * Follow Up:??6 Months, CPAP t itration at [facility] * Images: * Sign off status: Completed true * Provider:??Raffy Green MD Date:??0 04/20/2024 History and Physical Notes * HPI (History of Present Illness) Category Sub-Category Detail Notes Obstructive Sleep Apnea Sleep Interim History: S leep Apnea symptoms assessed:: Yes, with presence of snoring Apnea hypopnea index (AHI): 12 Respiratory disturbance index (RDI): 23 Positive Airway pressure therapy prescri bed: Yes Objective measurement of adh erence to positive airway pressure therapy documented: Yes [place] sleepiness scale Sitting and reading 2 m oderate chance of dozing or sleeping Watching TV 2 moderate chance of dozing or sleeping Sitting inactive in a public place 2 mod erate chance of dozing or sleeping Being a passenger in car longer than 1 h our 3 high chance of dozing or sleeping Lying down in the afternoon 3 high chanc e of dozing or sleeping Sitting and Talking with someone 0 would never doze or sleep Sitting quietly after lunch (no alcohol) 1 slight chance of dozing or sleeping Stopped for a few minutes in traffic while driving 0 would never doze or sleep Total 13 Examination Category Sub-Category Detail Notes General Physical [...] minutes, residual AHI 0.4, no significant leak Compliance report 03/21/2024 to 04/19/2024: Usage more than 4 hours 93%, average usage on days used 7 hours and 57 minutes, residual AHI 5, no significant leak
--- OUTSIDE RECORDS SUMMARY | 2024-07-07 08:40 | XMS_ITS | Patient Health Record ---
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 Name Role Phone SachinbreaAndre Primary Care Provider Raffy Schmid Unavailable [phone] Shane CANO, Amira Unavailable Unavailable ALLERGIES Allergen [...] 30 days Active traZODone HCl 50 MG TAKE 1 TABLET BY DIAZ TH EVERY DAY AT BEDTIME NEEDED FOR 30 DAYS for 90 Active Metoprolol Succinate 25 MG 1 capsule Ora lly Once a day for 30 day(s) Active Sertraline HCl 200 MG 1 capsule Orally O nce a day Active Spironolactone 25 MG TAKE 1/2 TABLET JUAN LY (12.5 MG TOTAL) BY MOUTH Oral for 90 Active Entresto 24-26 MG 1 tablet Orally Twic e a day for 30 day(s) Active Vitamin D3 25 MCG (1000 UT) 1 capsule Or ally Once a day for 30 day(s) Active Fanapt [...] Active confirmed Obstructive sleep apnea syndrome (disorder) (40446959) Problem Primary insomnia (F51.01) Active confirmed 1160559 Problem Excessive daytime sleepiness (G47.19) Active confirmed 338870452351 Problem Obesity (BMI 30-39.9) (E66.9) Active confirmed 123298460 Problem Chronic systolic congestive heart failure (I50.22) Active confirmed 198097441 Problem Bipolar affective disorder, remission status unspecified (F31.9) Active confirmed 06309337 Problem ADORE (obstructive sleep apnea) (G47.33) Active confirmed 61513527 Problem Primary hypertension (I10) Active confirmed 45051515 Problem Depression, unspecified depression type (F32.A) Active confirmed 42316210 VITAL SIGNS Heart Rate 72 /min 04/20/2024 Respiratory Rate 16 /min 04/20/2024 Blood pressure diastolic 72 mm Hg 04/20/2024 Height 63 in 04/20/2024 Blood pressure systolic 106 mm Hg 04/20/2024 Weight 211 lbs 04/20/2024 BMI 37.37 kg/m2 04/20/2024 Encounters Encounter Location Date Provider Diagnosis [facility] [address] [place], [place] [id number] 04/20/2024 Akbar Albakour Obesity (BMI 30-39.9) E66.9 ; Obstructive sleep apnea (adult) (pediatric) G47.33 ; Primary hypertension I10 ; Excessive daytime sleepiness G47.19 and Hypoxemia R09.02 [facility] [address] [place], [place] [id number] 04/27/2024 Akbar Albakour Primary insomnia F51.01 ASSESSMENTS Encounter Date Diagnosis Assessment Notes Treatment Notes Treatment Clinical Notes 04/20/2024 Obesity (BMI 30-39.9) (ICD-10 - E66.9) Weight loss, diet and exercise were discussed 04/27/2024 Primary insomnia (ICD-10 - F51.01) 04/20/2024 Primary hypertension (ICD-10 - I10) Controlled with metoprolol succinate 25 04/20/2024 Obstructive sleep apnea (adult) (pediatric) (ICD-10 - G47.33) She is using her CPAP machine and benefiting from using it, for some reason somebody changed her CPAP pressure to CPAP pressure 7, last year she was on auto CPAP 10-20, so I will refer her to do CPAP titration at [facility], I changed her CPAP to auto CPAP 10-20 04/20/2024 Excessive daytime sleepiness (ICD-10 - G47.19) Improved with CPAP therapy 04/20/2024 Hypoxemia (ICD-10 - R09.02) Overnight pulse oximetry on 11/14/2022: oxygen saturation was above 90 % for 99.8% of the study PLAN OF TREATMENT Future Test Test Name Order Date Home sleep study 01/04/2022 SLEEP STUDY-CPAP Titration 05/18/2024 Next Appt Details Provider Name:Raffy Brennan kamila, 10/21/2024 11:30:00 AM, [address] [place] [address], [address], [place], [place], [id number], Insurance Providers Payer Name Payer Address Payer Phone Subscriber Number Group Number Insured Name Patient Relationship to Insured Coverage Start Date Coverage End Date [employer] [address] [place] [phone] [id number] Sandra Oscar Self - patient is the insured MEDICAL [...]
[2024-07-07] MEDS: Aprepitant 32 MG/4.4 ML VIAL IVPUSH (09:08)
[2024-07-07] MEDS: Lactated Ringers 1,000 ML 50 ML IVCONT (09:21)
--- NOTE | 2024-07-07 10:13 | MHC.SHP ---
Pre-Procedural Eval Section A - 24 Hr Update-Section A only Date of Service: 07/07/24 The patient is an INPATIENT: Yes The patient has been examined within 24 hours of the surgical procedure. The History & Physical has been completed within 30 days and I have reviewed it.: Yes Section B - Complete if H&P > 30 days Chief Complaint: Obesity Relevant Family History (Specify if Yes): No Relevant Social History: None Present Medications: None Medical History: No relevant PMH History of Previous Operations: Relevant previous surgery/procedure and date(s) (Lap band and lap band removal) Allergies: Allergies Allergy/AdvReac Type Severity Reaction Status Date / Time Penicillins Allergy Intermediate FEVER, Verified 07/07/24 09:28 hives Iodinated Contrast Media AdvReac Severe severe Verified 07/03/24 11:01 [IV Contrast Dye] back pain perflutren AdvReac Severe Back Pain Verified 07/03/24 11:01 Review of Systems Sugical H&P ROS: Negative: Constitution, Cardiovascular, Respiratory, Neurological, Psychiatric, Hem-Onc, Allergic/Immunologic, Gastrointestinal, Genitourinary, Musculoskeletal, Integumentary, Endocrine and Eyes/Ears/Nose/Throat Exam Surgical H&P Exam: Normal: HEENT, Normal: Heart, Normal: Lungs, Normal: Extremities, Normal: Abdomen, Normal: Skin and Normal: Neurological Plan Diagnosis/Plan: Unchanged I have reviewed the history and physical and performed a pertinent physical examination on my patient. No changes have occurred unless specified. Time Spent With Patient Time: Total time managing care of this patient today ____ minutes.
--- NOTE | 2024-07-07 10:30 | PC.NURSE ---
patient has hx chf and cardiology clearance yesterday states to not overload patient with fluids. dr. phillips stated 500 bolus preop only today as surgeon orders 1,000 ml.
--- NOTE | 2024-07-07 10:34 | PM.OP ---
Brief Operative Note Date of Service: 07/07/24 Pre-op diagnosis: Severe obesity with comorbidities (see below) Post-op diagnosis: same Procedure: INITIAL PATIENT BMI ON PRESENTATION AT OUR OFFICE: 41 kg/m2 LAST BMI BEFORE SURGERY: 36.4 kg/m2 COMORBIDITIES: sleep apnea on CPAP ?The patient presented to the Weight Management Program with significant obesity that was negatively impacting the patient's comorbidities as listed above.? The program is a phased program with a special focus on preoperative medical weight management to promote substantial weight loss and prepare the patients for the second phase of the program: bariatric surgery. The patient participated in an intensive weekly lifestyle ?intervention and exercise program during which the patient ?has lost between the initial office visit and the last preoperative visit 25.6 lbs, or 11.15% of initial actual body weight. It was deemed appropriate for the patient to now have bariatric surgery. The patient had a previous lap band procedure. I removed the band and its accessories on 02/13/24. At that point the gastro-gastric wrap was also taken down. The purpose of this procedure is to perform the sleeve gastrectomy. As I explained to the patient, the sleeve gastrectomy can be very challenging after a lap band procedure and often there are thick adhesions which cannot be seen until the short gastric vessels are dissected. Therefore if unexpected intraoperative adhesions are found that can make the sleeve gastrectomy technically difficult, the procedure may not be completed. PROCEDURE: Esophago-gastroscopy, extensive laparoscopic lysis of adhesions INDICATIONS: This is a 49 year-old female who was electively scheduled for laparoscopic, possibly open sleeve gastrectomy. The risks and complications of the procedure were discussed with the patient in advance, particularly the possibility of ; pulmonary embolism; staple line leak; bleeding; GERD; cardiac, pulmonary, or renal complications; as well as long-term problems such as insufficient weight loss, vitamin deficiency, strictures, or ulcers. The patient understood all the risks, and was in agreement to proceed with surgery. DESCRIPTION OF PROCEDURE: After informed consent was obtained from the patient, the patient was given preoperative antibiotics, and was transferred to the operating room. After successful induction of general anesthesia, pneumatic compression devices were placed on both lower extremities. An upper endoscopy was performed next. The oropharynx and esophagus appeared to be within normal limits. There was no diaphragmatic hernia present consistent with the findings of the preoperative upper GI. The stomach was entered. Then after all fluid and air were suctioned and the stomach was fully decompressed, the scope was withdrawn and secured in the mid esophagus. The patient was then prepped and draped in the usual sterile manner, and abdominal access was established at the right upper quadrant with the Parisa technique. A 12 mm blunt port was inserted, and the abdomen was insufflated with CO2 to a pressure of 15 mmHg. Under direct visualization, additional ports were placed, specifically two 5 mm Versi-step ports to the left upper quadrant, and a 5 mm Versi-Step port to the right upper quadrant. 1% lidocaine plain was used to infiltrate all port sites as well as all fascia defects. Following that, the patient was placed in a steep reverse Trendelenburg position. An additional 5 mm port was placed to the right flank for the Mediflex retractor that was used to retract the left lobe of the liver. The liver retractor could not be placed because the left lobe of the liver was completely fused to the anterior surface of the stomach and the lesser omentum. I began lysing these adhesions to be able to free the liver so it can be retracted and expose the hiatus. The adhesions were very dense and progress was very slow. After over an hour of lysing these adhesions I was able to free the lateral aspect of the liver. However there were extensive adhesions with unclear plane towards the lesser omentum and the left natasha that could not be lysed safely. Additonally the patient had significant hepatomegaly which made the exposure more difficult and unless we were able to free all liver adhesions, I would not have been able to perform the sleeve safely. Lastly by freeing part of the adherent liver from the anterior surface of the stomach, I was able to assess the stomach which appeared quite thickened and I was concerned for a staple misfire if we proceeded with the sleeve gastrectomy. For all the above reasons, I decided not to proceed with the sleeve gastrectomy. ?An upper endoscopy was performed. There was no narrowing at the GE junction. The scope was easily advanced all the way to the pylorus which was clearly visualized. There was no obvious injury at the stomach wall. At that point the gastroscope was withdrawn from the patient?s mouth while we were decompressing the bowel and the stomach from any remaining air. I closed the fascial defect of the 12 mm port site with a figure of eight #1 Polysorb suture. Then 30cc Ropivacaine plain with 10 mg of Dexamethasone were used to infiltrate the fascial closure as well as all skin incisions. At this point, the abdomen was deflated, all ports were removed under direct vision, and no bleeding was noted from any of the port sites. The skin incisions were irrigated with saline and were closed with 4-0 absorbable monofilament sutures. Steri-Strips and OpSites were used to cover all incisions. The patient was extubated and was transferred in stable condition to the recovery room for further care. I was present and performed all galindo parts of the procedure. Mr. Wu was the assistant cook. There were no residents to assist with this case. Antwon Barrios MD, PhD, FACS Surgeon: William Barrios MD Anesthesia: GETA, local and other (TAP block) Was an Assistant Boys Track Coach used for this Procedure?: No Assistant Boys Track Coach: Andre Wu Estimated blood loss (mL): 10 IV fluids (mL): 1,500 Urine output (mL): 150 Pathology: none sent Condition: stable Disposition: PACU
--- NOTE | 2024-07-07 10:34 | PC.NURSE ---
lungs remain clear after 500 fluid bolus.
--- NOTE | 2024-07-07 11:01 | P.PNGS_ITS ---
Subjective Subjective Date of Service: 07/08/24 Interval history: Feels well. Mild incisional pain. She is tolerating phase 1 bariatric diet Physical Exam 2 Vital Signs: Vital Signs: Last Vital Signs Temp 98.1 F 07/07/24 09:24 Pulse 61 07/07/24 09:24 Resp 18 07/07/24 09:24 BP 97/57 L 07/07/24 09:24 Pulse Ox 97 07/07/24 09:24 O2 Del Method Room Air 07/07/24 09:24 BMI result Body Mass Index 36.2 GI: Inspection: Yes normal to inspection, Yes incision (clean, dry and intact) and Yes obesity Palpation (GI): Soft to palpation Extrem: Right lower extremity: normal to inspection (no calf tenderness) L eft lower extremity: normal to inspection (no calf tenderness) Objective Data Active Medications Lactated Ringer's (Lr) 1,000 mls @ 50 mls/hr IVCONT .Q20H ANDREW Last Admin: 07/07/24 09:21 Dose: 50 mls/hr Documented By: SAPPHIRE Labs 07/08/24 05:11 07/08/24 05:11 Procedures Date of Service Date of Service: 07/08/24 Progress Note: A&P Assessment and plan (1) Obesity: Status: Acute Assessment and Plan: s/plysis of adhesions Doing well Will check am labs and if OK the patient will be discharged home (2) BMI 36.0-36.9,adult: Status: Acute (3) ADORE on CPAP: Status: Acute (4) HTN (hypertension), benign: Status: Acute (5) Bipolar 1 disorder: Status: Acute (6) Hepatomegaly: Status: Acute (7) Steatosis, liver: Status: Acute (8) Liver fibrosis: Status: Acute (9) PTSD (post-traumatic stress disorder): Status: Acute (10) Non-ischemic cardiomyopathy: Status: Acute (11) Depression: Status: Acute (12) Status post gastric banding: Status: Acute (13) LBBB (left bundle branch block): Status: Acute (14) Fibromyalgia: Status: Acute (15) LVH (left ventricular hypertrophy): Status: Acute Time Spent With Patient Time: Total time managing care of this patient today ____ minutes. Quality Stroke Does the patient have a stroke diagnosis?: No VTE Prior VTE?: No VTE Risk Level:: Surgical - moderate VTE Device Contraindication: N/A - Device Ordered VTE Drug Contraindication: Treatment Not Indicated
[2024-07-07] MEDS: levoFLOXacin/D5W 500 MG/100 ML PIGGYBACK 100 MG IV (11:33)
[2024-07-07] MEDS: Acetaminophen 1,000 MG/100 ML PIGGYBACK 400 MG IV (12:15)
--- NOTE | 2024-07-07 13:54 | PM.DS ---
DS: Providers Provider Date of Service: 07/08/24 Date of admission: 07/07/24 08:37 Primary care physician: Andre Ryan MD DS: Diagnosis Discharge Diagnosis (1) Obesity: Status: Acute (2) BMI 36.0-36.9,adult: Status: Acute (3) ADORE on CPAP: Status: Acute (4) HTN (hypertension), benign: Status: Acute (5) Bipolar 1 disorder: Status: Acute (6) Hepatomegaly: Status: Acute (7) Steatosis, liver: Status: Acute (8) Liver fibrosis: Status: Acute (9) PTSD (post-traumatic stress disorder): Status: Acute (10) Non-ischemic cardiomyopathy: Status: Acute (11) Depression: Status: Acute (12) Status post gastric banding: Status: Acute (13) LBBB (left bundle branch block): Status: Acute (14) Fibromyalgia: Status: Acute (15) LVH (left ventricular hypertrophy): Status: Acute DS: Summary Hospital Course Hospital Course: ADMITTING DIAGNOSIS: obesity, LVH, cardiomyopathy, bipolar, depression ? DISCHARGE DIAGNOSIS: same, s/p laparoscopic lysis of adhesions ? PAST SURGICAL HISTORY: gastric band, gastric band removal, hysterectomy, tonsillectomy, cardiac catheterization, pacemaker placement ? PROCEDURE: upper endoscopy, laparoscopic lysis of adhesions ? DISCHARGE SUMMARY: ? History of Present Illness: ? The patient is a?49 year-old woman with a BMI of?42.3 kg/m2 and associated co-morbidities as described above. The patient had extensive work-up,lost?33.4 lbs preoperatively and was electively scheduled for laparoscopic, possible open sleeve gastrectomy and gastropexy. Risks and complications of the surgery were discussed with the patient in advance, particularly the possibility of , pulmonary embolism, anastomotic leak, bleeding, bowel injury, GERD, cardiac, renal or pulmonary complications. The patient understood all the risks and was in agreement with the surgical plan. ? Hospital Course: ? The patient underwent laparoscopic lysis of adhesions. Due to dense adhesions of the stomach to the liver it was deemed unsafe to proceed with the gastrectomy and the procedure was aborted on the day of admission. Postoperatively, the patient was transferred to the surgical floor. The patient received IV Acetaminophen and IV dilaudid for pain control. Patient was kept NPO POD #0. On postoperative day one, the patient was feeling well without nausea, vomiting, fevers, or tachycardia. The patient had some mild incisional pain and the abdomen was soft. ? On the morning of postoperative day one, the patient was started on 1 ounce of water or ice every half hour. During the day, the patient did fairly well, having some incisional pain, but able to ambulate adequately and to tolerate liquids well. ? Since the patient is doing well, we decided that the patient was ready to be discharged. The patient was given instructions to follow-up with me next week and to call my office for any fever over 101, persistent abdominal pain, nausea, vomiting, GERD, symptoms of DVT such as calf tenderness, or leg swelling, or pulmonary embolism such as chest pain or shortness of breath. The patient was also instructed to drink 40-60 ounces of liquids per day using the 1-ounce cups. The patient had been given prescriptions for Tylenol for pain, Zofran prn for nausea, and pantoprazole and carafate previously. The patient was encouraged to ambulate and use the incentive spirometer. The patient was allowed to shower, but no baths, and encouraged to stay active at home. All of these instructions were given to the patient personally. All questions were answered and the patient understood all instructions, the instructions were also given to the patient in print. Time Attestation Total time managing care of this patient today: 25 mintues. Discharge Coordination Time (in mins): 25 Quality: Safe Use of Opioids Does Pt have an Active Cancer Diagnosis on the Problem List?: No Quality: Stroke Does the patient have a stroke diagnosis?: No Physical Exam Vital Signs: Vital Signs: Last Vital Signs Temp 98.1 F 07/07/24 09:24 Pulse 61 07/07/24 09:24 Resp 18 07/07/24 09:24 BP 97/57 L 07/07/24 09:24 Pulse Ox 97 07/07/24 09:24 O2 Del Method Room Air 07/07/24 09:24 BMI result Body Mass Index 36.2 DS: Data Data Completed and Pending Completed studies during hospitalization [Text1]: Procedures Release Peritoneum, Percutaneous Endoscopic Approach (02/13/24) Removal of Extraluminal Device from Stomach, Percutaneous Endoscopic Approach (02/13/24) Discharge Plan Discharge Anticipated Discharge Date/Time: 07/08/24 10:00 Patient Disposition: Home, Self-Care Discharge Diagnosis: s/p laparoscopic lysis of adhesions Referrals: Andre Ryan MD [Primary Care Provider] - 1 Week Discharge Medications: Continued Fanapt 6 mg tablet 6 mg PO BID pantoprazole 40 mg tablet,delayed release (DR/EC) 40 mg PO DAILY@0630 sertraline 100 mg tablet 100 mg PO BID Entresto 24-26 mg tablet 1 tab PO BID zolpidem 10 mg tablet 10 mg PO BEDTIME sucralfate 100 mg/mL suspension 10 ml PO BID Qty: 600 0RF ondansetron 4 mg tablet,disintegrating 4 mg PO Q6H PRN (Reason: nausea and vomiting) Qty: 20 0RF Rx Instructions: Only take one every 12 hours as needed if you have nausea cholecalciferol (vitamin D3) 50 mcg (2,000 unit) capsule 50 mcg PO DAILY oxybutynin chloride 10 mg tablet extended release 24hr 10 mg PO DAILY cyanocobalamin (vitamin B-12) 1,000 mcg tablet, sublingual 1,000 mcg sublingual BID Discharge Orders: Discharge Order (Routine); Ordered 07/08/24 Ordered By: William Barrios Activity on Discharge: No heavy lifting Stand Alone Forms: Patient Portal Discharge page Print Language: Greek Care Plan Goals: weight loss Health Concerns: obesity Plan of Treatment: No tub baths, sex or returning to work until discussed at first post op appointment. No exercise, alcohol, tobacco or illegal drug use. Continue to use incentive spirometer hourly while awake. Walk in home for 5- 10 minutes every 2 hours during the first week. Follow all instructions in the bariatric handbook and call with any questions.Discharge Instructions 1. Please call your doctor or come back to the emergency room should any new symptoms arise. 2. You will receive a courtesy call from [facility] 24-48 hours after discharge. 3. Activity: abstain from alcohol, practice limited stair climbing, no bending, no driving, no exercise, no illicit substances, no lifting, no sex, no tub bath, no work. 4. Diet: continue as discussed with Dr. Barrios. 5. Dressing Change/Wound Care: Your incision is covered by clear bandages and guaze underneath. If the area is tender, you may apply an ice pack for short intervals (no more than 20 minutes on, followed by at least 20 minutes off). Do not apply heat. Do not use creams, lotions, or topical antibiotics unless instructed to do so by your surgeon. These can cause infection or allergic reaction. 6. Call your doctor if: - Your temperature exceeds 101.5 F - You experience excessive pain or swelling - You have an unexpected reaction to medication - You have excessive bleeding - You experience continued vomiting/nausea - Your incision begins to separate - Your incision shows signs of infection such as increased redness, swelling, excessive pain, heat, or drainage (light blood or clear fluid is normal) 7. General instructions: No lifting greater than 5 lbs for 1 week and not more than 20lbs the next 3?weeks. No driving until seen at the office in 5-7 days after surgery. If you do not move your bowels in the next 2 days, please tell?Dr. Barrios. Please walk around your home every hour or two to prevent blood clots from forming in your legs. You do not need to wake from sleeping to walk. Please sleep in a bed or couch to prevent kinking at the hips and knees. Please take your incentive spirometer (your lung fastener sewing machine operator) home with you and use it for the next few days to prevent pneumonia. You may shower, no hot tubs, baths or swimming pools.?Please follow the post op diet instructions you are?given by Dr Barrios? and text me daily at 5-6pm for an update.?If you have any issues or concerns or questions please communicate this to him via text.? The Celebrate shakes have all of the bariatric vitamins you need if you consume these shakes. If you are drinking other protein shakes, you will need to purchase the Celebrate multivitamins and calcium that are available in the hospital gift shop on the first floor of the [facility].??Do not take anything without first discussing with Dr Barrios. Please make sure you are consuming at least 40 ounces of fluids per day starting the?day AFTER your discharge from the hospital. Always drink 1-2 ml per minute using the 5ml?syringe. If you drink faster you may experience?bloating,?gas pain, burping, nausea or heartburn. In that case please slow down your pace and use the syringe to?understand better the?proper?pace and volume of drinking. Do not hesitate to contact the office with any questions at . The patient's medical history has been reviewed and they are considered low risk for post op DVT and therefore DVT prophylaxis is not considered necessary. Travel after surgery was reviewed. The patient has not disclosed any travel plans during the first 30 days after surgery and they have been advised that within the first 30 days after surgery any bus, plane, train or car travel over 2 hours in duration is contraindicated due to the possibility of developing blood clots from immobility. Any travel, needs to include periods of ambulation of 10 minutes in duration every 2 hours.? The patient was instructed to discuss any plans for travel during this period with their bariatric surgeon. Assessment: stable s/p laparoscopic lysis of adhesions
[2024-07-07] MEDS: ondansetron HCL 4 MG/2 ML VIAL IVPUSH (14:18)
[2024-07-07] MEDS: HYDROmorphone HCl 0.5 MG/0.5 ML SYRINGE 0.25 MG IVPUSH ×2 (14:19→14:26)
[2024-07-07 14:32] LABS: Hematocrit 32.9 % (37.0-47.0)
[2024-07-07 14:50] LABS: Anion Gap 15 (12-20); Blood Urea Nitrogen 21 mg/dL (9-16); Calcium 9.6 mg/dL (8.4-10.2); Carbon Dioxide 24 mmol/L (22-29); Chloride 105 mmol/L (96-108); Estimated Glomerular Filt Rate 57; Glucose Random 119 mg/dL (60-115); Potassium 4.7 mmol/L (3.3-5.1); Sodium 139 mmol/L (135-145)
[2024-07-07] MEDS: Lactated Ringers 1,000 ML 100 ML IVCONT (15:56)
--- NOTE | 2024-07-07 17:14 | PHA.MEDREC ---
Addendum entered by Andre Priest RPh 07/07/24 17:22: Med rec reviewed Addendum entered by Adelita Vigil 07/07/24 17:19: Patient states Sertraline is 100 mg bid. claims states 300 mg daily. Original Note: Pharmacy Consult ? Medication Reconciliation Pharmacy has reviewed the medication reconciliation done by nursing. Spoke to patient to confirm med list. Patient states she is no longer on Benzonatate 200 mg, Calcium Citrate 250 mg, Metoprolol succ 25 mg, Polyethylene Glycol 3352 powder, and Gabapentin 100 mg and [address] took her off 1 week ago prior to surgery and she doesn't want to start taking it again.
[2024-07-07] MEDS: Acetaminophen 1,000 MG/100 ML PIGGYBACK 16.7 MG IV ×2 (17:45→23:46)
[2024-07-07] MEDS: Famotidine/PF 20 MG/2 ML VIAL IVPUSH (20:13)
[2024-07-07] MEDS: Metoclopramide HCl 10 MG/2 ML VIAL IVPUSH (20:13)
[2024-07-07] MEDS: Sacubitril/Valsartan 24/26 1 TAB TABLET PO (20:14)
[2024-07-07] MEDS: 0.9 % Sodium Chloride Flush 3 ML SYRINGE IVFLUSH (20:14)
[2024-07-07] MEDS: Zolpidem Tartrate 5 MG TABLET PO (20:14)
[2024-07-08 00:10] VITALS: BP 135/70; PULSE 60; RESP 18; TEMP 36.2; O2SAT 97
[2024-07-08] MEDS: Lactated Ringers 1,000 ML 100 ML IVCONT (01:13)
[2024-07-08 04:00] VITALS: BP 127/65; PULSE 65; RESP 16; TEMP 36; O2SAT 95
[2024-07-08] MEDS: Acetaminophen 1,000 MG/100 ML PIGGYBACK 16.7 MG IV (05:38)
[2024-07-08 06:56] LABS: MANUAL DIFF FLAG NO
[2024-07-08 07:02] LABS: Basophils Percent Auto 0.2 % (0-2); Hematocrit 33.4 % (37.0-47.0); Hemoglobin 11.2 g/dl (12.0-16.0); Imm Gran Abs Auto 0.06 X10*3/uL (0.00-0.03); Imm Gran Pct Auto 0.7 % (0.0-0.4); Lymphocytes Absolute Auto 1.6 X10*3/uL (1.2-4.9); Lymphocytes Percent Auto 18.9 % (20-40); Mean Corpuscular HGB Conc 33.5 g/dl (31.0-35.0); Mean Corpuscular Hemoglobin 29.2 pg (27.0-33.0); Mean Platelet Volume 9.8 fL (9.4-12.3); Monocytes Absolute Auto 0.3 X10*3/uL (0.1-1.2); Monocytes Percent Auto 3.8 % (2-11); Neutrophils Absolute Auto 6.4 x10*3/uL (2.0-8.3); Neutrophils Percent Auto 76.4 % (45-73); Platelet Count 314 X10*3/uL (160-400); Red Blood Count 3.84 X10*6/uL (4.20-5.50); Red Cell Distribution Width 13.3 % (11.0-16.0); White Blood Count 8.4 X10*3/uL (4.8-10.8)
[2024-07-08 07:13] LABS: Anion Gap 16 (12-20); Blood Urea Nitrogen 18 mg/dL (9-16); Carbon Dioxide 22 mmol/L (22-29); Chloride 105 mmol/L (96-108); Creatinine Clr Calc Pharmacy 78.7; Estimated Glomerular Filt Rate > 60; Glucose Random 92 mg/dL (60-115); Potassium 4.9 mmol/L (3.3-5.1); Sodium 138 mmol/L (135-145)
[2024-07-08] MEDS: Famotidine/PF 20 MG/2 ML VIAL IVPUSH (07:30)
[2024-07-08 07:36] VITALS: BP 127/61; PULSE 63; RESP 18; TEMP 36.1; O2SAT 96
[2024-07-08] MEDS: oxyBUTYnin chloride ER 5 MG TAB.ER.24 10 MG PO (08:12)
[2024-07-08] MEDS: Sacubitril/Valsartan 24/26 1 TAB TABLET PO (08:13)
--- NOTE | 2024-07-08 09:00 | MHC.CM.PN ---
PT LEFT BEFORE COULD BE SEEN BY CASE MANAGEMENT. PT HAD OWN TRANSPORT
--- NOTE | 2024-07-09 09:13 | HO.POSTANES ---
Post Anesthesia Evaluation Post Anesthesia Evaluation Date of Service: 07/07/24 Anesthesia: General Mental Status: Awake Pain Control: Satisfactory Nausea/Vomiting: None Hydration: Adequate Anesthesia-Related Issues: No Anes. Related Issues
== END 2024-07-08 09:24 | disposition home or self-care (01) | DRG 951 ==
LOC: HO.SSSA 13:59 → HO.S3 15:09
PROVIDERS: Physician Assistant Surgical; Admitting Provider Surgery; PCP Internal Medicine; Visit Provider Surgery
PROC: 0DNW4ZZ Release Peritoneum, Percutaneous Endoscopic Approach (ICD-10-PCS; principal; 2024-07-07 11:10)
DX: E66.01 Morbid (severe) obesity due to excess calories (principal); I42.9 Cardiomyopathy, unspecified; F31.9 Bipolar disorder, unspecified; K66.0 Peritoneal adhesions (postprocedural) (postinfection); Z68.36 Body mass index [BMI] 36.0-36.9, adult; Z91.041 Radiographic dye allergy status; Z87.891 Personal history of nicotine dependence; Z98.84 Bariatric surgery status; Z79.899 Other long term (current) drug therapy
CPT/HCPCS: 36415; 80048; 85014; 85018; 85025; 86850; 86900; 86901; C9145; J0131; J1100; J1171; J1940; J1956; J2003; J2250; J2405; J2598; J2704; J2765; J2795; J3010; J7120

== ENCOUNTER → 2024-07-07 08:37 | Outpatient (BNV) | payer OTHER, SELFPAY | PROVIDERS: Admitting Provider Surgery; PCP Internal Medicine; Visit Provider Surgery | DX: E66.01 Morbid (severe) obesity due to excess calories (principal); Z68.36 Body mass index [BMI] 36.0-36.9, adult; Z98.84 Bariatric surgery status | CPT/HCPCS: 43235; 44180; 99238; 99499 ==

== ENCOUNTER 2024-07-14 10:29 | Outpatient (AMB) | payer OTHER, SELFPAY ==
[2024-07-14 10:36] VITALS: BP 111/66; PULSE 75; TEMP 36.6; O2SAT 98
--- NOTE | 2024-07-14 10:36 | MHC.OFFVISWM ---
VS Expanded 07/14/24 10:36 BP 111/66 Blood Pressure Location Rt brachial Blood Pressure Position Sitting Pulse 75 Pulse Source Pulse Oximeter Temp 97.8 F Temperature Source Temporal Artery Scan Pulse Oximetry 98 Oxygen Delivery Method Room Air Intake Visit Reasons: (OV) s/p ZAIRA 07/07/24 Allergies Penicillins Allergy (Intermediate, Verified 07/07/24 09:28) FEVER, hives Iodinated Contrast Media [IV Contrast Dye] Adverse Reaction (Severe, Verified 07/03/24 11:01) severe back pain perflutren Adverse Reaction (Severe, Verified 07/03/24 11:01) Back Pain HPI Comments Details: Patient is a pleasant 49-year-old female who returns to the office today in follow-up. She underwent lysis of adhesions on 07/07/2024 in an attempt to do a laparoscopic sleeve gastrectomy that needed to be aborted due to extensive adhesions between the stomach and the liver. She remains on unjury shakes and food. Prior to surgery she was using the treadmill and walking outside. She offers no significant complaints at today's visit. Aside from feeling increased depressive symptoms due to the inability to do the sleeve gastrectomy. [facility] Medical History Preoperative cardiovascular examination History of pacemaker (06/10/24) Pyelonephritis of right kidney (01/17/24) Bipolar disorder Hepatomegaly Steatosis, liver Liver fibrosis PTSD (post-traumatic stress disorder) Non-ischemic cardiomyopathy BMI 37.0-37.9, adult GERD (gastroesophageal reflux disease) Anxiety Depression Urinary tract infection CHF (congestive heart failure) Esophagitis determined by biopsy Cardiomyopathy Fibromyalgia Left bundle branch block Bipolar 1 disorder Sleep apnea HTN (hypertension) Morbid obesity Surgical History History of esophagogastroduodenoscopy (EGD) (02/04/24) Status post gastric banding S/P cardiac catheterization Hx of laparoscopic gastric banding Hx of hysterectomy Hx of tonsillectomy Family History Mother Hypertension Father COPD (chronic obstructive pulmonary disease) Clogged artery (heart) Sister Anxiety with depression Obesity Brother Arthritis Brother Obesity Sister No problems noted. Sister No problems noted. Daughter Anxiety with depression Daughter No problems noted. Social History Household Members: Family Housing: House Are you a primary hospice spiritual care coordinator to a significant other at home: No Do you presently have visiting nurse or other home services: No Alcohol intake: current Alcohol intake frequency: holidays/special occasions only Comment: burning Patient Tobacco Use Status: Former Tobacco user Tobacco use type: Cigarette service: No Physical Exam Vital Signs: Last Vital Signs Temp 97.8 F 07/14/24 10:36 Pulse 75 07/14/24 10:36 BP 111/66 07/14/24 10:36 Pulse Ox 98 07/14/24 10:36 Oxygen Delivery Method Room Air 07/14/24 10:36 GI Inspection: Yes incision (Clean, dry, intact.) Assessment & Plan Assessment & Plan (1) S/P laparoscopy with lysis of adhesions: Code(s): Z98.890 - Other specified postprocedural states Category: Surgical Plan: We will continue current meal plan per Dr. Barrios. Continue within the program. Refer to [facility] here in our program for increased stress and anxiety surrounding food.
== END 2024-07-14 11:06 | disposition home or self-care (01) ==
PROVIDERS: PCP Internal Medicine; Visit Provider Physician Assistant Surgical
DX: K66.0 Peritoneal adhesions (postprocedural) (postinfection) (principal); Z48.89 Encounter for other specified surgical aftercare
CPT/HCPCS: 99024

== ENCOUNTER → 2024-07-14 10:29 | Outpatient (BNVA) | payer OTHER, SELFPAY | PROVIDERS: PCP Internal Medicine; Visit Provider Physician Assistant Surgical | DX: Z98.890 Other specified postprocedural states (principal) | CPT/HCPCS: 99212 ==

== ENCOUNTER → 2024-07-26 23:59 | Outpatient (BNV) | payer OTHER, SELFPAY ==
--- NOTE | 2024-07-30 19:43 | MHC.OFFVIS ---
Intake Visit Reasons: Remote device check- [employer] Allergies Penicillins Allergy (Intermediate, Verified 07/07/24 09:28) FEVER, hives Iodinated Contrast Media [IV Contrast Dye] Adverse Reaction (Severe, Verified 07/03/24 11:01) severe back pain perflutren Adverse Reaction (Severe, Verified 07/03/24 11:01) Back Pain PFSH Medical History Preoperative cardiovascular examination History of pacemaker (06/10/24) Pyelonephritis of right kidney (01/17/24) Bipolar disorder Hepatomegaly Steatosis, liver Liver fibrosis PTSD (post-traumatic stress disorder) Non-ischemic cardiomyopathy BMI 37.0-37.9, adult GERD (gastroesophageal reflux disease) Anxiety Depression Urinary tract infection CHF (congestive heart failure) Esophagitis determined by biopsy Cardiomyopathy Fibromyalgia Left bundle branch block Bipolar 1 disorder Sleep apnea HTN (hypertension) Morbid obesity Surgical History History of esophagogastroduodenoscopy (EGD) (02/04/24) Status post gastric banding S/P cardiac catheterization Hx of laparoscopic gastric banding Hx of hysterectomy Hx of tonsillectomy Family History Mother Hypertension Father COPD (chronic obstructive pulmonary disease) Clogged artery (heart) Sister Anxiety with depression Obesity Brother Arthritis Brother Obesity Sister No problems noted. Sister No problems noted. Daughter Anxiety with depression Daughter No problems noted. Social History Household Members: Family Housing: House Are you a primary progressive care manager to a significant other at home: No Do you presently have visiting nurse or other home services: No Alcohol intake: current Alcohol intake frequency: holidays/special occasions only Comment: burning Patient Tobacco Use Status: Former Tobacco user Tobacco use type: Cigarette service: No Office Procedures Cardiac Device Check Cardiac Device Check Details: Date of service 07/26/2024; Battery life >12 years; normal lead parameters; no treated VT/VF; probably sinus tachycardia; normal ICD function. [id number] Cardiac Interrogation, implant defibrillator w/interim Procedure code (CPT) selection complete Assessment & Plan Assessment & Plan (1) Cardiac defibrillator in situ: Code(s): Z95.810 - Presence of automatic (implantable) cardiac defibrillator Category: Medical (2) Non-ischemic cardiomyopathy: Code(s): I42.8 - Other cardiomyopathies Category: Medical Plan x Coding Level of Care Code Procedure Only Diagnoses Cardiac defibrillator in situ Z95.810 Non-ischemic cardiomyopathy I42.8 CPT Codes Cardiac Device Check - Cardiac Device 13: [id number] Cardiac Interrogation, implant defibrillator w/interim ([id number])
== END ==
PROVIDERS: PCP Internal Medicine; Visit Provider Internal Medicine
DX: I42.8 Other cardiomyopathies (principal); Z95.810 Presence of automatic (implantable) cardiac defibrillator
CPT/HCPCS: 93295

== ENCOUNTER → 2024-07-29 11:11 | Outpatient (BNVA) | payer OTHER, SELFPAY | PROVIDERS: PCP Internal Medicine; Visit Provider Counselor Mental Health ==

== ENCOUNTER → 2024-07-29 11:11 | Outpatient (AMB) | payer OTHER, SELFPAY ==
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
== END ==
LOC: HO.HBST 11:11
PROVIDERS: PCP Internal Medicine; Visit Provider Counselor Mental Health
DX: F31.9 Bipolar disorder, unspecified (principal)
CPT/HCPCS: 90791

== ENCOUNTER 2024-10-12 11:10 | Outpatient (AMB) | payer OTHER, SELFPAY ==
--- NOTE | 2024-10-12 11:05 | MHC.OFFVISWM ---
VS Expanded 10/12/24 11:12 Height 5 ft 2 in Weight 214 lb BMI 39.1 Intake Visit Reasons: (TV) s/p ZAIRA 07/07/24 Allergies Penicillins Allergy (Intermediate, Verified 07/07/24 09:28) FEVER, hives Iodinated Contrast Media [IV Contrast Dye] Adverse Reaction (Severe, Verified 07/03/24 11:01) severe back pain perflutren Adverse Reaction (Severe, Verified 07/03/24 11:01) Back Pain Medication List - Last Reconciled 10/12/24 by JANY Sol cholecalciferol (vitamin D3) 50 mcg PO DAILY cyanocobalamin (vitamin B-12) 1,000 mcg sublingual BID iloperidone (Fanapt) 6 mg PO BID ondansetron 4 mg PO Q6H PRN oxybutynin chloride ER 10 mg PO DAILY pantoprazole 40 mg PO DAILY@0630 sacubitril-valsartan 24-26 mg (Entresto) 1 tab PO BID sertraline 100 mg PO BID sucralfate 10 mL PO BID zolpidem 10 mg PO BEDTIME HPI Comments Details: This?is a?49?yo female who is s/p ZAIRA 07/07/2024, inability to perform sleeve gastrectomy due to adhesions. Presents for 3mo post op visit. No complaints of nausea, emesis, abdominal pain, or constipation. Pt reports I've been in a depression state, I don't want to weigh myself. Thinks she gained weight, I'm back where I started. Present meal plan includes: no longer doing presurgery meal plan- has to cook for son and uses Unjury protein powder Exercise routine includes: treadmill or walking [facility] Medical History Preoperative cardiovascular examination History of pacemaker (06/10/24) Pyelonephritis of right kidney (01/17/24) Bipolar disorder Hepatomegaly Steatosis, liver Liver fibrosis PTSD (post-traumatic stress disorder) Non-ischemic cardiomyopathy BMI 37.0-37.9, adult GERD (gastroesophageal reflux disease) Anxiety Depression Urinary tract infection CHF (congestive heart failure) Esophagitis determined by biopsy Cardiomyopathy Fibromyalgia Left bundle branch block Bipolar 1 disorder Sleep apnea HTN (hypertension) Morbid obesity Surgical History History of esophagogastroduodenoscopy (EGD) (02/04/24) Status post gastric banding S/P cardiac catheterization Hx of laparoscopic gastric banding Hx of hysterectomy Hx of tonsillectomy Family History Mother Hypertension Father COPD (chronic obstructive pulmonary disease) Clogged artery (heart) Sister Anxiety with depression Obesity Brother Arthritis Brother Obesity Sister No problems noted. Sister No problems noted. Daughter Anxiety with depression Daughter No problems noted. Social History Household Members: Family Housing: House Are you a primary health and social care teacher to a significant other at home: No Do you presently have visiting nurse or other home services: No Alcohol intake: current Alcohol intake frequency: holidays/special occasions only Comment: burning Patient Tobacco Use Status: Former Tobacco user Tobacco use type: Cigarette service: No Telehealth Telehealth Telehealth Platform: Telephone Location of provider rendering services: other Location of patient: address on file Patient Identification confirmed using: Name, : Yes Telehealth method: voice only Patient verbally consented to treatment: Yes Patient verbally consented to billing insurance company: Yes Patient informed of any privacy concerns related to visit: Yes Minutes spent on Phone/Video with Pt.: 20 Assessment & Plan Assessment & Plan (1) Obesity: Code(s): E66.9 - Obesity, unspecified Category: Medical Qualifiers: Obesity type: due to excess calories Obesity classification: adult class 2 (BMI 35 - 39.9) Serious obesity comorbidity presence: with serious comorbidity Body mass index: BMI 38.0-38.9 Qualified Code(s): E66.01 - Morbid (severe) obesity due to excess calories; Z68.38 - Body mass index [BMI] 38.0-38.9, adult Plan New high protein meal plan: breakfast- cottage cheese lunch- half shake in coffee snack- full shake (20g) dinner- 4oz meat, 2oz or less healthy carb, plus salad or veg Discussed foods on healthy foods list- pt still has copy. Will monitor her reflux sx while back on a structured meal plan, will let me know at next visit if they persist at same severity. RTC 4-6 weeks, encouraged pt to text me between visits with questions, meal plan sent via text. I spent a total of 30 minutes reviewing/updating records, examining the patient and counseling the patient on weight management as detailed above.
[2024-10-12 11:12] VITALS: BMI 39.1
== END 2024-10-12 11:31 | disposition home or self-care (01) ==
LOC: HO.HBS 11:10
PROVIDERS: PCP Internal Medicine; Visit Provider Physician Assistant Surgical
DX: E66.812 Obesity, class 2 (principal); Z68.39 Body mass index [BMI] 39.0-39.9, adult
CPT/HCPCS: 98012

== ENCOUNTER → 2025-01-22 23:59 | Outpatient (BNV) | payer OTHER, SELFPAY ==
--- NOTE | 2025-01-26 12:38 | MHC.OFFVIS ---
Intake Visit Reasons: Remote device check- [employer] Allergies Penicillins Allergy (Intermediate, Verified 07/07/24 09:28) FEVER, hives Iodinated Contrast Media [IV Contrast Dye] Adverse Reaction (Severe, Verified 07/03/24 11:01) severe back pain perflutren Adverse Reaction (Severe, Verified 07/03/24 11:01) Back Pain PFSH Medical History Preoperative cardiovascular examination History of pacemaker (06/10/24) Pyelonephritis of right kidney (01/17/24) Bipolar disorder Hepatomegaly Steatosis, liver Liver fibrosis PTSD (post-traumatic stress disorder) Non-ischemic cardiomyopathy BMI 37.0-37.9, adult GERD (gastroesophageal reflux disease) Anxiety Depression Urinary tract infection CHF (congestive heart failure) Esophagitis determined by biopsy Cardiomyopathy Fibromyalgia Left bundle branch block Bipolar 1 disorder Sleep apnea HTN (hypertension) Morbid obesity Surgical History History of esophagogastroduodenoscopy (EGD) (02/04/24) Status post gastric banding S/P cardiac catheterization Hx of laparoscopic gastric banding Hx of hysterectomy Hx of tonsillectomy Family History Mother Hypertension Father COPD (chronic obstructive pulmonary disease) Clogged artery (heart) Sister Anxiety with depression Obesity Brother Arthritis Brother Obesity Sister No problems noted. Sister No problems noted. Daughter Anxiety with depression Daughter No problems noted. Social History Household Members: Family Housing: House Are you a primary respiratory care technician to a significant other at home: No Do you presently have visiting nurse or other home services: No Alcohol intake: current Alcohol intake frequency: holidays/special occasions only Comment: burning Patient Tobacco Use Status: Former Tobacco user Tobacco use type: Cigarette service: No Office Procedures Cardiac Device Check Cardiac Device Check Details: Date of service- 01/22/2025 ; Battery life >12 years; normal lead parameters; AP 8%; PROTEIN SPECIALIST >99%; no significant arrhythmias. Overall normal device function. [id number] Cardiac Device Interrogation, pacemaker Procedure code (CPT) selection complete Assessment & Plan Assessment & Plan (1) Cardiac resynchronization therapy pacemaker (SALES ENABLEMENT CONSULTANT-P) in place: Code(s): Z95.0 - Presence of cardiac pacemaker Category: Medical (2) Cardiomyopathy: Code(s): I42.9 - Cardiomyopathy, unspecified Category: Medical Qualifiers: Cardiomyopathy type: other Qualified Code(s): I42.8 - Other cardiomyopathies Plan x Coding Level of Care Code Procedure Only Diagnoses Cardiac resynchronization therapy pacemaker (SALES ENABLEMENT CONSULTANT-P) in place Z95.0 Other cardiomyopathy I42.8 Cardiomyopathy type: other CPT Codes Cardiac Device Check - Cardiac Device 12: [id number] Cardiac Device Interrogation, pacemaker ([id number])
== END ==
PROVIDERS: PCP Internal Medicine; Visit Provider Internal Medicine
DX: I42.8 Other cardiomyopathies (principal); Z95.0 Presence of cardiac pacemaker
CPT/HCPCS: 93294

== ENCOUNTER 2025-02-16 11:07 | Outpatient (AMB) | payer OTHER, SELFPAY ==
--- NOTE | 2025-02-16 11:11 | MHC.OFFVIS ---
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 Accompanied by: Self / Same As Patient Allergies Penicillins Allergy (Intermediate, Verified 07/07/24 09:28) FEVER, hives Iodinated Contrast Media [IV Contrast Dye] Adverse Reaction (Severe, Verified 07/03/24 11:01) severe back pain perflutren Adverse Reaction (Severe, Verified 07/03/24 11:01) Back Pain Medication List - Last Reconciled 02/16/25 by Reilly Talavera MD alpha lipoic acid-biotin 600 mg- 450 mcg tabs PO cholecalciferol (vitamin D3) 50 mcg PO DAILY cyanocobalamin (vitamin B-12) 1,000 mcg sublingual BID iloperidone (Fanapt) 6 mg PO BID metoprolol succinate ER 25 mg PO DAILY ondansetron 4 mg PO Q6H PRN oxybutynin chloride ER 10 mg PO DAILY pantoprazole 40 mg PO DAILY@0630 sacubitril-valsartan 24-26 mg (Entresto) 1 tab PO BID sertraline 100 mg PO BID sucralfate 10 mL PO BID zolpidem 10 mg PO BEDTIME HPI Comments Details: Sandra returns for follow-up regarding cardiomyopathy. Originally, seen in consultation regarding preoperative risk stratification for weight loss surgery. EKG had shown left bundle-branch block. Subsequently, she underwent entire workup including echocardiogram, cardiac catheterization as well as cardiac MRI. Recently, she was seen by EP and underwent dual-chamber pacemaker implantation with conduction system pacing. After that, she states that she is substantially better. Planning to go for weight loss surgery tomorrow. [facility] Medical History COVID-19 Preoperative cardiovascular examination History of pacemaker (06/10/24) Pyelonephritis of right kidney (01/17/24) Bipolar disorder Hepatomegaly Steatosis, liver Liver fibrosis PTSD (post-traumatic stress disorder) Non-ischemic cardiomyopathy BMI 37.0-37.9, adult GERD (gastroesophageal reflux disease) Anxiety Depression Urinary tract infection CHF (congestive heart failure) Esophagitis determined by biopsy Cardiomyopathy Fibromyalgia Left bundle branch block Bipolar 1 disorder Sleep apnea HTN (hypertension) Morbid obesity Surgical History History of esophagogastroduodenoscopy (EGD) (02/04/24) Status post gastric banding S/P cardiac catheterization Hx of laparoscopic gastric banding Hx of hysterectomy Hx of tonsillectomy Family History Mother Hypertension Father COPD (chronic obstructive pulmonary disease) Clogged artery (heart) Sister Anxiety with depression Obesity Brother Arthritis Brother Obesity Sister No problems noted. Sister No problems noted. Daughter Anxiety with depression Daughter No problems noted. Social History Household Members: Family Housing: House Are you a primary direct care counselor to a significant other at home: No Do you presently have visiting nurse or other home services: No Alcohol intake: current Alcohol intake frequency: holidays/special occasions only Comment: burning Patient Tobacco Use Status: Former Tobacco user Tobacco use type: Cigarette service: No Review of Systems Const Denies chills, Denies fatigue, Denies fever(s), Denies frequent falls, Denies weakness, Denies weight gain and Denies weight loss ENT Denies dizziness Card Denies chest pain, Denies leg edema, Denies lightheadedness, Denies palpitations, Denies dyspnea and Denies dyspnea on exertion Resp Denies cough, Denies dyspnea and Denies dyspnea on exertion GI Denies hematochezia Musc Denies abnormal gait, Denies muscle weakness, Denies numbness, Denies radiating pain into limb and Denies tingling Neuro Denies abnormal gait, Denies dizziness, Denies frequent falls, Denies numbness, Denies tingling and Denies weakness Endo Denies fatigue and Denies palpitations Physical Exam Vital Signs: Last Vital Signs Pulse 60 02/16/25 11:12 BP 124/66 02/16/25 11:12 BMI result Body Mass Index 42.7 Const General: comfortable and no acute distress Orientation/consciousness: patient oriented x3 HEENT Other: Unremarkable Head: Yes normal to inspection Neck Neck: Yes normal visual inspection Chest Chest palpation & inspection: normal inspection of the chest Resp Auscultation: clear to auscultation bilaterally Cardio Palpation: normal PMI Heart sounds: S1 normal heart sound present, S2 normal heart sound present, no gallops, no murmurs and no rubs GI Palpation (GI): Soft to palpation Back/Spine/Pelvis Other: unremarkable Skin General skin exam: no rashes or lesions noted Neuro General: patient oriented x3 Extrem General: Yes normal to inspection Psych Mental Status: mental status grossly normal Office Procedures EKG Details: EKG with dual-chamber paced rhythm; 60/Min; rightward axis; cannot exclude old septal infarct but could be from body habitus; [place]. [id number], Complete Assessment & Plan Assessment & Plan (1) Cardiomyopathy: Code(s): I42.9 - Cardiomyopathy, unspecified Category: Medical Qualifiers: Cardiomyopathy type: other Qualified Code(s): I42.8 - Other cardiomyopathies (2) LBBB (left bundle branch block): Code(s): I44.7 - Left bundle-branch block, unspecified Category: Medical (3) Morbid obesity: Code(s): E66.01 - Morbid (severe) obesity due to excess calories Category: Medical Plan Pertinent data reviewed. Initial echocardiogram with LVEF of 35-40%. Cardiac catheterization shows normal coronaries. Cardiac MRI with LVEF of 40%. No significant delayed enhancement patterns. RVEF 54%. No significant valvular issues. Thought to be nonischemic cardiomyopathy. In the most recent echocardiogram at [facility], LVEF is 50-55%. Hence it seems that it has improved after device placement. Holter monitor in the past with underlying sinus rhythm and average rate of 85/Min. Around 22% the time, rate > 100/Min. This might be related to obesity/deconditioning. For meds, she is on beta-blockers and Entresto. Has been on spironolactone in the past but not anymore. She has got no active heart failure and hence can hold off Jardiance as apparently it costs more than a 1000$/month through her insurance. With regard to the pacemaker, functioning normally. She states she feels much better after pacemaker implant. Follow-up in 6 months with pacemaker check. In the interim, she will call with concerns. Discussion Notes I discussed the patient's concerns about weight management and cardiac symptoms. We reviewed her positive response to Wegovy and discussed reinitiating treatment or considering other options like Ozempic. The risks and benefits were outlined, focusing on her cardiac history. I explained ongoing management of fibromyalgia would continue with current medication, avoiding ketamine due to potential cardiac risks. We reviewed her improved cardiac function, highlighting the enhanced ejection fraction and general health status, with recommendations for future follow-up appointments set for six months unless issues arise. The patient expressed understanding and agreement with the plan. Patient was informed and verbally consented to the use of an ambient scribe for clinic note documentation during this visit. Patient Instructions: - Monitor your weight and any cardiac symptoms. - Report any new or worsening symptoms to my office. - Follow your current cardiac medications as prescribed. - Avoid non-prescribed supplements or treatments. - Plan for a follow-up in six months unless symptoms change. - Continue engaging in light physical activities as tolerated. - Maintain current fibromyalgia management. - Contact us if you have questions about your medication. Coding Level of Care Code Est Pt Level 4 (74471) Complex EM visit Add On G2211 Diagnoses Other cardiomyopathy I42.8 Cardiomyopathy type: other LBBB (left bundle branch block) I44.7 Morbid obesity E66.01 CPT Codes EKG - CPT: 22289-[id number], Complete ([id number])
[2025-02-16 11:12] VITALS: BP 124/66; PULSE 60; BMI 42.7
--- OUTSIDE RECORDS SUMMARY | 2025-02-16 12:25 | XMS_ITS | Patient Health Record ---
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 Name Role Phone Andre Ryan Primary Care Provider [phone] ALLERGIES Allergen (clinical drug ingredient) Drug/Non Drug Allergy documented on EMR Reaction Allergy Type Onset Date Status Penicillin Unknown Drug Allergy Active RESULTS Component Value Reference Range Notes Uric Acid-[id number] Reviewed date:04/14/2024 07:05:49 AM Interpretation: Performing Lab:[facility] Mallika, PaperG [facility], Phone - [phone], Director - Crystal Notes/Report: Uric Acid 7.2 2.6-6.2 mg/dL Therapeutic ta rget for gout patients: <6.0 Iron and TIBC-859166 Reviewed date:04/14/2024 07:05:50 AM Interpretation: Performing Lab:[facility] Mallika, [facility] [place], Phone - [phone], Director - Crystal Notes/Report: Iron Bind.Cap.(TIBC) 349 250-450 ug/dL UIBC 266 131-425 ug/dL Iron 83 27-159 ug/dL Iron Saturation 24 15-55 % Urinalysis, Complete-[id number] Reviewed date:04/14/2024 07:05:50 AM Interpretation: Performing Lab:[facility] Mallika, PaperG [facility], [place], Phone - [phone], Director - Crystal Notes/Report: Specific Austin 1.018 1.005-1.030 pH 6.0 5.0-7.5 Urine-Color Yellow Yellow Appearance Clear Clear WBC Esterase Negative Negative Protein 1+ Negative/Trace Glucose Negative Negative Ketones Negative Negative Occult Blood Negative Negative Bilirubin Negative Negative Urobilinogen,Semi-Qn 0.2 0.2-1.0 mg/dL Nitrite, Urine Negative Negative Microscopic Examination See below: Micr oscopic was indicated and was performed. Microscopic Examination WBC None seen 0 - 5 /hpf RBC 0-2 0 - 2 /hpf Epithelial Cells (non renal) 0-10 0 - 10 /hpf Epithelial Cells (renal) Casts None seen None seen /lpf Cast Type Crystals Crystal Type Mucus Threads Bacteria None seen None seen/Few Yeast Trichomonas Comment Ferritin-159515 Reviewed date:04/14/2024 07:05:50 AM Interpretation: Performing Lab:[facility] [place], Phone - [phone], [facility] Notes/Report: Ferritin 218 15-150 ng/mL Sedimentation Rate-[facility] n-[id number] Reviewed date:04/14/2024 07:05:50 AM Interpretation: Performing Lab:[facility] [address], Phone - [phone], [facility] [place]/Report: Sedimentation Rate-[facility] 37 0-40 mm/hr Rheumatoid Factor (RF)-08582 2 Reviewed date:04/14/2024 07:05:50 AM Interpretation: Performing Lab:[facility] [place], Phone - [phone], [facility] [place]/Report: Rheumatoid Factor (RF) <10.0 <14.0 IU/mL C-Reactive Protein, Quant-00 6627 Reviewed date:04/14/2024 07:05:50 AM Interpretation: Performing Lab:[facility] [place], Phone - [phone], [facility] [place]/Report: C-Reactive Protein, Quant 4 0-10 mg/L Lyme Disease Serology w/Refl ex-[id number] Reviewed date:04/14/2024 07:05:50 AM Interpretation: Performing Lab:[facility] [place], [address] [place] [address], Phone - [phone], [facility] [place]/Report: Lyme Total Antibody RENEE Negative Negative Lyme antibodies not detected. Reflex testing is not indicated. No laboratory evidence of infection with B. burgdorferi (Lyme disease). Negative results may occur in patients recently infected (less than or equal to 14 days) with B. burgdorferi. If recent infection is suspected, repeat testing on a new sample collected in 7 to 14 days is recommended. Anti-CCP Ab, IgG + IgA (RDL) -[id number] Reviewed date:04/14/2024 07:05:50 AM Interpretation: Performing Lab:[facility] [place], [address] [place] [address], Phone - [phone], Director - MDJodry Notes/Report: Anti-CCP Ab, IgG + IgA (RDL) <20 <20 Units Negative: <20 Weak Positive: 20-39 Moderate Positive: 40-59 Strong Positive: >59 Lipid Panel-[id number] Reviewed date:04/14/2024 07:05:50 AM Interpretation: Performing Lab:[facility] [place], [address] [place] [address], [place], Phone - [phone], [facility] Notes/Report: Cholesterol, Total 253 100-199 mg/dL Triglycerides 245 0-149 mg/dL HDL Cholesterol 48 >39 mg/dL VLDL Cholesterol Anirudh 45 5-40 mg/dL LDL Chol Calc ([facility]) 160 0-99 mg/dL LDL Calc Comment: Comp. Metabolic Panel (13)-3 22081 Reviewed date:04/14/2024 07:05:50 AM Interpretation: Performing Lab:[facility] [place], [address] [place] [address], Phone - [phone], Director - MDy Notes/Report: Glucose 95 70-99 mg/dL BUN 11 6-24 mg/dL Creatinine 0.90 0.57-1.00 mg/dL eGFR 78 >59 mL/min/1.73 BUN/Creatinine Ratio 12 9-23 Sodium 140 134-144 mmol/L Potassium 5.0 3.5-5.2 mmol/L Chloride 102 96-106 mmol/L Carbon Dioxide, Total 21 20-29 mmol/L Calcium 9.8 8.7-10.2 mg/dL Protein, Total 7.3 6.0-8.5 g/dL Albumin 4.7 3.9-4.9 g/dL Globulin, Total 2.6 1.5-4.5 g/dL Bilirubin, Total 0.4 0.0-1.2 mg/dL Alkaline Phosphatase 96 44-121 IU/L AST (SGOT) 14 0-40 IU/L VY-[id number] Reviewed date:04/14/2024 07:05:50 AM Interpretation: Performing Lab:[facility] [address], Phone - [phone], Director - Crystal Notes/Report: NT-proBNP 236 0-249 pg/mL The following cut-points have been suggested for the use of proBNP for the diagnostic evaluation of heart failure (HF) in patients with acute dyspnea: . Modality Age Optimal Cut (years) Point -- Diagnosis (rule in HF) <50 450 pg/mL 50 - 75 900 pg/mL >75 1800 pg/mL Exclusion (rule out HF) Age independent 300 pg/mL 25-Hydroxyvitamin D LCMS D2+ [id number] Reviewed date:04/14/2024 07:05:50 AM Interpretation: Performing Lab:[facility] [address], Phone - [phone], Director - Crystal Notes/Report: 25-Hydroxy, Vitamin D 31 Reference Range: All Ages: Target levels 30 - 100 25-Hydroxy, Vitamin D-2 5.3 This test was developed and its performance characteristics determined by [facility]. It has not been cleared or approved by the Food and Drug Administration. 25-Hydroxy, Vitamin D-3 26 This test was developed and its performance characteristics determined by [facility]. It has not been cleared or approved by the Food and Drug Administration. Thyroid Panel With TSH-41089 0 Reviewed date:04/14/2024 07:05:50 AM Interpretation: Performing Lab:[facility] [address], Phone - [phone], Director - Crystal Notes/Report: TSH 1.900 0.450-4.500 uIU/mL Thyroxine (T4) 7.6 4.5-12.0 ug/dL T3 Uptake 28 24-39 % Free Thyroxine Index 2.1 1.2-4.9 CBC with Diff, Platelet, NLR -[id number] Reviewed date:04/14/2024 07:05:50 AM Interpretation: Performing Lab:[facility] [place], Phone - [phone], Director - Crystal Notes/Report: WBC 8.5 3.4-10.8 x10E3/uL RBC 4.61 3.77-5.28 x10E6/uL Hemoglobin 12.8 11.1-15.9 g/dL Hematocrit 40.6 34.0-46.6 % MCV 88 79-97 fL MCH 27.8 26.6-33.0 pg MCHC 31.5 31.5-35.7 g/dL RDW 13.6 11.7-15.4 % Platelets 357 150-450 x10E3/uL Neutrophils 55 Not Estab. % Lymphs 38 Not Estab. % Monocytes 4 Not Estab. % Eos 2 Not Estab. % Basos 1 Not Estab. % Immature Cells Neutrophils (Absolute) 4.7 1.4-7.0 x10E3/uL Lymphs (Absolute) 3.3 0.7-3.1 x10E3/uL Neut/Lymph Ratio 1.4 0.0-2.9 ratio Published COVID-19 studies suggest: Low likelihood of severe COVID-19 disease progression 0.0-2.9 High likelihood of severe COVID-19 disease progression >4.9 Monocytes(Absolute) 0.3 0.1-0.9 x10E3/uL Eos (Absolute) 0.1 0.0-0.4 x10E3/uL Baso (Absolute) 0.1 0.0-0.2 x10E3/uL Immature Granulocytes 0 Not Estab. % Immature Grans (Abs) 0.0 0.0-0.1 x10E3/uL NRBC Hematology Comments: Hand Min 3 Views Left Reviewed date:11/10/2024 07:35:31 PM Interpretation: Performing Lab: Notes/Report: Hand Min 3 Views Right, Hand Min 3 Views Left INDICATION / CLINICAL QUESTION: Reason: M79.641 bilateral hand pain. / COMPARISON: None.. TECHNIQUE: AP, oblique, and lateral views. FINDINGS: Normal mineralization. There is no fracture or focal bony lesion . The joint spaces are normal. There is no significant soft tissue abnormality. IMPRESSION: 1. No bony injury. 2. No joint abnormality.. WSN: [id number] Ordering Physician: Andre Ryan Dictated By: Ole CANO, Giovanny Huber Hand Min 3 Views Right Reviewed date:11/10/2024 07:35:31 PM Interpretation: Performing Lab: Notes/Report: Hand Min 3 Views Right, Hand Min 3 Views Left INDICATION / CLINICAL QUESTION: Reason: M79.641 bilateral hand pain. / COMPARISON: None.. TECHNIQUE: AP, oblique, and lateral views. FINDINGS: Normal mineralization. There is no fracture or focal bony lesion . The joint spaces are normal. There is no significant soft tissue abnormality. IMPRESSION: 1. No bony injury. 2. No joint abnormality.. WSN: [id number] Ordering Physician: Andre Ryan Dictated By: Giovanny Handy MD Lumbar Spine 2 or 3 Views Reviewed date:11/11/2024 09:19:33 AM Interpretation: Performing Lab: Notes/Report: Lumbar Spine 2 or 3 Views Reason: M54.59 other low back pain COMPARISON: None. FINDINGS: No bone lesions or fractures. Mild scoliosis lumbosacral spine convex to right. Normal disc configuration. Normal alignment. No spondylolysis or spondylolisthesis. Normal soft tissues. IMPRESSION: No acute abnormality seen. WSN: [id number] Ordering Physician: Andre Ryan Dictated By: Estiven CANO, Pj Hernandez REASON FOR REFERRAL Reason Consultation Diagnosis 1 Fibromyalgia (M79.7) Referral Organization Andre Ryan Md Referring Provider First Name Andre Referring Provider Last Name Shelby Referring Provider Speciality Internal M edicine Referred Provider Specialty Rheumatology General Notes Anamika Aguilar 03/18/20 09:57:19 AM EDT > tried all rheum in the area - no one treats firbromyalgia, faxed to Binu parnell Crystal 03/31/2024 02:15:06 PM EDT > [facility] [employer] F: [phone], P: [phone] Crystal 03/31/2024 02:17:27 PM EDT > spoke to patient she said she is scheduled with rheuma at [facility] for April 07 I asked if she told them her diagnosis which she did not, I explained all this to her and she said pretty much well we will see what happens., Anamika Aguilar 12/14/2024 03:56:27 PM EDT > new referral created Clinical Notes Dr Watkins no longer Evie campos has no doctor that treat, Dr Juarez [facility] f:[phone] - rheum no long at this office., [facility], [address] [place] [address] [id number], [place] [address], Referral Priority Routine Reason 30 minutes procedure appointment for excision biopsy of lipoma left axillary area Diagnosis 1 Lipoma of left upper extremity (D17.22) Referral Organization Andre Ryan Md Referring Provider First Name Andre Referring Provider Last Name Shelby Referring Provider Speciality Internal M edicine Referred Provider Specialty Other Medica l Care General Notes Binu Faiza BRADY 02:12:23 PM EDT > pt aware financial obligation Referral Priority Routine Reason Consultation SOON POSSIBLE Diagnosis 1 Fibromyalgia (M79.7) Referral Organization Andre Ryan Md Referring Provider First Name Andre Referring Provider Last Name Shelby Referring Provider Speciality Internal M edicine Referred Provider Specialty Rheumatology General Notes Anamika Aguilar 07/27/20 08:57:25 AM EDT > LMAM to see where she wants to go, Anamika Aguilar 08/05/2024 08:36:52 AM EST > faxed with office not to [employer] request soonest appt, Anamika Aguilar 08/07/2024 09:04:50 AM EST > [facility] not taking new patient with fibromyalgia, Anamika Aguilar 08/10/2024 08:34:13 AM EST > [facility] not treating or taking new patients, Anamika Aguilar 08/10/2024 08:34:26 AM EST > Called [facility], they are treating, faxing referral there. Referral faxed, Anamika Aguilar 08/17/2024 02:02:36 PM EST > Referral was not processed patient not registered, I registered her and they will be reaching out to make appt. Reg # [id number], Anamika Aguilar 08/25/2024 04:16:36 PM EST > followed up, they need all info refaxed. Sent, Anamika Aguilar 09/07/2024 10:53:41 AM EST > spoke with yan and took the first available. He put her on cacellation list. letter sent with appt details, [facility] p: [phone] f: [phone] [facility] 09/16/2024 02:21:05 PM EST > [facility] no longer has a wire web worker. This referral has been faxed to Maryana @ [phone], Sanford Thakkar 09/17/2024 03:23:45 PM EST > There is no Rheumatology at [facility] Referral Priority Routine MEDICATIONS Medication SIG (Take, Route, Frequency, Duration) Notes Start Date End Date Status Entresto 24-26 MG 1 tablet Orally once a day for 90 Days Active Pregabalin 100 MG 1 capsule Orally Twi ce a day for 90 Days Active Sertraline HCl 100 MG TAKE 3 TABLETS BY MOUTH ONCE DAILY for 90 Active Topiramate 25 MG 1 tablet Orally Once a day for 30 day(s) 01/18/2025 Active Hydrocortisone (Perianal) 2.5 % 1 application Externally Twice a day for 30 days Active Zolpidem Tartrate 10 MG 1 tablet at bedt elbert as needed Orally Once a day for 30 days Active Zepbound 2.5 MG/0.5ML 2.5 mg Subcutaneou s once a week for 30 day(s) Active Phentermine HCl 37.5 MG 1 tablet before breakfast Orally Once a day for 30 days 01/18/2025 Active Sertraline HCl 100 MG 3 tablet Orally On ce a day for 30 days Active B-12 1000 MCG DISSOLVE 1 UNDER TON GABE TWICE A DAY DIRECTED FOR 30 DAYS 90 for 90 Active Fanapt 6 MG 1 tablet Orally Twic e a day Active oxyBUTYnin Chloride ER 10 MG TAKE 1 TABLET BY MOUTH EVERY DAY for 90 Active CPAP Machine . 8 cm of H2O with hea deric humidifier Intranasally Daily Active Metoprolol Succinate ER 25 MG TAKE 1 TABLET BY MOUTH EVERY DAY for 90 Active Spironolactone 25 MG TAKE 1 TABLET BY MO [facility] EVERY DAY FOR 90 DAYS for 90 Active Metoprolol Succinate ER 25 MG 1 tablet Orally Once a day Active Vitamin D3 50 MCG (1999) TAKE 1 CAPSU LE BY MOUTH EVERY DAY FOR 30 DAYS for 90 Active Pregabalin 100 MG TAKE 1 CAPSULE BY MO [facility] TWICE A DAY FOR 30 DAYS for 30 02/08/2025 Active Zolpidem Tartrate 10 MG TAKE 1 TABLET BY MOUTH EVERY DAY AT BEDTIME NEEDED FOR 30 DAYS for 30 02/08/2025 Active CPAP Supplies - Use as directed . Daily Active SOCIAL HISTORY Tobacco Use: Social History Observation Description Date Details (start date - stop date) Former Smoker NA - NA Sex Assigned At : Social History Observation Description Sex Assigned At Unknown Tobacco Use/Smoking Question Answer Notes Are you a former smoker PROBLEMS Problem Type ICD Code Onset Dates Problem Status W/U Status Risk SNOMED Code Notes Problem Nephrolithiasis (N20.0) Active confirmed 81361933 Problem Bipolar disorder, in full remission, most recent episode mixed (F31.78) Active confirmed 772845901 Problem Primary insomnia (F51.01) Active confirmed 3435615 Problem Mixed hyperlipidemia (E78.2) Active confirmed 243480472 Problem Heart failure, unspecified (I50.9) Active confirmed 075400211414364 Problem Morbid (severe) obesity due to excess calories (E66.01) Active confirmed 34028455935769 Problem Left bundle-branch block, unspecified (I44.7) Active confirmed 22902178 Problem Obstructive sleep apnea (G47.33) Active confirmed 59034331 Problem Fibromyalgia (M79.7) Active confirmed 855698382 Problem Overactive bladder (N32.81) Active confirmed 036316698 Problem Essential hypertension (I10) Active confirmed 77968193 Problem Chronic fatigue (R53.82) Active confirmed 70379764 Problem Coronary artery disease involving [place] coronary artery of [place] heart without angina pectoris (I25.10) Active confirmed 24726610 Problem Acute gout of right ankle, unspecified cause (M10.9) Active confirmed 134104975391880 Problem Grade II hemorrhoids (K64.1) Active confirmed Prolapsed internal hemorrhoids (03306141) Problem Cardiomyopathy, unspecified type (I42.9) Active confirmed 47332976 VITAL SIGNS Heart Rate 80 /min 01/14/2025 Blood pressure diastolic 80 mm Hg 01/14/2025 Height 61 in 01/14/2025 Blood pressure systolic 110 mm Hg 01/14/2025 Weight 225.6 lbs 01/14/2025 BMI 42.62 kg/m2 01/14/2025 Encounters Encounter Location Date Provider Diagnosis Andre Ryan Md [address], [place] [id number] 02/26/2024 Andre Ryan [facility], [address] [address] 02/27/2024 Andre Ryan Fibromyalgia M79.7 [facility], [address] [address] 03/03/2024 [facility] [address] [address] 03/05/2024 [facility] [address] [address] 03/05/2024 [facility] [address] [address] 03/06/2024 Andre Ryan Encounter for screen ing for malignant neoplasm of vagina Z12.72 ; Encounter for screening mammogram for malignant neoplasm of breast Z12.31 and Overactive bladder N32.81 [facility], [address] [address] 03/13/2024 [facility] [address] [address] 04/07/2024 Andre Ryan Essential hypertensi on I10 ; Heart failure, unspecified I50.9 ; Bipolar disorder, in full remission, most recent episode mixed F31.78 ; Obstructive sleep apnea G47.33 ; Morbid (severe) obesity due to excess calories E66.01 ; Mixed hyperlipidemia E78.2 ; Elevated sedimentation rate R70.0 ; Fibromyalgia M79.7 ; Primary insomnia F51.01 ; Grade II hemorrhoids K64.1 and Laboratory tests ordered as part of a complete physical exam (CPE) Z00.[address] [address] 04/14/2024 Andre Ryan Morbid (severe) obes ity due to excess calories E66.[address] [address] 06/05/2024 Andre Ryan Acute UTI N39.[address] [address] 07/07/2024 [facility] [address] [address] 07/24/2024 Andre Ryan Fibromyalgia M79.7 ; Lipoma of left upper extremity D17.22 ; Heart failure, unspecified I50.9 ; Essential hypertension I10 ; Bipolar disorder, in full remission, most recent episode mixed F31.78 ; Obstructive sleep apnea G47.33 ; Morbid (severe) obesity due to excess calories E66.01 ; Mixed hyperlipidemia E78.2 ; Elevated sedimentation rate R70.0 ; Primary insomnia F51.01 and Grade II hemorrhoids K64.[address] [address] 07/28/[address] [address] 07/30/2024 Andre Ryan Essential hypertensi on I10 ; Heart failure, unspecified I50.9 ; Bipolar disorder, in full remission, most recent episode mixed F31.78 ; Obstructive sleep apnea G47.33 ; Morbid (severe) obesity due to excess calories E66.01 ; Mixed hyperlipidemia E78.2 ; Elevated sedimentation rate R70.0 ; Fibromyalgia M79.7 ; Primary insomnia F51.01 and Grade II hemorrhoids K64.[address] [address] 08/17/[address] [address] 08/31/2024 Andre Ryan Essential hypertensi on I10 ; Heart failure, unspecified I50.9 ; Bipolar disorder, in full remission, most recent episode mixed F31.78 ; Obstructive sleep apnea G47.33 ; Morbid (severe) obesity due to excess calories E66.01 ; Mixed hyperlipidemia E78.2 ; Elevated sedimentation rate R70.0 ; Fibromyalgia M79.7 ; Primary insomnia F51.01 and Grade II hemorrhoids K64.[address] [address] 09/01/2024 Andre Ryan Morbid (severe) obes ity due to excess calories E66.01 ; Fibromyalgia M79.7 ; Heart failure, unspecified I50.9 ; Essential hypertension I10 ; Bipolar disorder, in full remission, most recent episode mixed F31.78 ; Obstructive sleep apnea G47.33 ; Mixed hyperlipidemia E78.2 ; Elevated sedimentation rate R70.0 ; Primary insomnia F51.01 and Grade II hemorrhoids K64.[address] [address] 09/04/2024 Andre Ryan Lipoma of torso D17. 1 [facility] [address] [address] 09/07/2024 Andre Ryan [facility], [address] [address] 09/16/2024 Andre Ryan Md [address] [place] [id number] 09/25/2024 Andre Ryan [facility], [address] [address] 10/02/2024 Andre Ryan Morbid (severe) obes ity due to excess calories E66.01 ; Fibromyalgia M79.7 ; Heart failure, unspecified I50.9 ; Essential hypertension I10 ; Bipolar disorder, in full remission, most recent episode mixed F31.78 ; Obstructive sleep apnea G47.33 ; Mixed hyperlipidemia E78.2 ; Elevated sedimentation rate R70.0 ; Primary insomnia F51.01 ; Grade II hemorrhoids K64.1 ; Other low back pain M54.59 ; Right hand pain M79.641 and Left hand pain M79.642 [facility] [address] [address] 10/26/2024 Andre Ryan [facility], [address] [address] 11/25/2024 Andre Ryan Morbid (severe) obes ity due to excess calories E66.01 ; Fibromyalgia M79.7 ; Heart failure, unspecified I50.9 ; Essential hypertension I10 ; Bipolar disorder, in full remission, most recent episode mixed F31.78 ; Obstructive sleep apnea G47.33 ; Mixed hyperlipidemia E78.2 ; Elevated sedimentation rate R70.0 ; Primary insomnia F51.01 ; Grade II hemorrhoids K64.1 ; Other low back pain M54.59 ; Right hand pain M79.641 and Left hand pain M79.642 [facility] [address] [address] 11/26/2024 Andre Ryan [facility], [address] [address] 11/28/2024 Andre Ryan [facility], [address] [address] 12/03/2024 Andre Ryan [facility], [address] [address] 12/23/2024 [facility] [address] [address] 12/30/2024 Andre Ryan [facility], [address] [address] 01/08/2025 Andre Ryan [facility], [address] [address] 01/13/2025 Andre Ryan [facility], [address] [address] 01/14/2025 Andre Ryan Morbid (severe) obes ity due to excess calories E66.01 ; Fibromyalgia M79.7 ; Trochanteric bursitis, right hip M70.61 ; Heart failure, unspecified I50.9 ; Essential hypertension I10 ; Bipolar disorder, in full remission, most recent episode mixed F31.78 ; Obstructive sleep apnea G47.33 ; Mixed hyperlipidemia E78.2 ; Elevated sedimentation rate R70.0 ; Primary insomnia F51.01 and Grade II hemorrhoids K64.1 [facility], [address] [address] 01/18/2025 Andre nimisha [facility], [address] [address] 02/12/2025 Andre Ryan Bipolar disorder, in full remission, most recent episode mixed F31.[address] [address] 02/12/2025 Andre Ryan Morbid (severe) obes ity due to excess calories E66.01 ; Fibromyalgia M79.7 ; Trochanteric bursitis, right hip M70.61 ; Heart failure, unspecified I50.9 ; Essential hypertension I10 ; Bipolar disorder, in full remission, most recent episode mixed F31.78 ; Obstructive sleep apnea G47.33 ; Mixed hyperlipidemia E78.2 ; Elevated sedimentation rate R70.0 ; Primary insomnia F51.01 and Grade II hemorrhoids K64.1 ASSESSMENTS Encounter Date Diagnosis Assessment Notes Treatment Notes Treatment Clinical Notes 09/04/2024 Lipoma of torso (ICD-10 - D17.1) 01/14/2025 Morbid (severe) obesity due to excess calories (ICD-10 - E66.01) 07/24/2024 Lipoma of left upper extremity (ICD-10 - D17.22) 01/14/2025 Fibromyalgia (ICD-10 - M79.7) 07/24/2024 Fibromyalgia (ICD-10 - M79.7) 02/12/2025 Bipolar disorder, in full remission, most recent episode mixed (ICD-10 - F31.78) 02/12/2025 Morbid (severe) obesity due to excess calories (ICD-10 - E66.01) 03/06/2024 Encounter for screening for malignant neoplasm of vagina (ICD-10 - Z12.72) 06/05/2024 Acute UTI (ICD-10 - N39.0) 11/25/2024 Morbid (severe) obesity due to excess calories (ICD-10 - E66.01) 02/27/2024 Fibromyalgia (ICD-10 - M79.7) 04/07/2024 Essential hypertension (ICD-10 - I10) 10/02/2024 Morbid (severe) obesity due to excess calories (ICD-10 - E66.01) 09/01/2024 Morbid (severe) obesity due to excess calories (ICD-10 - E66.01) 04/14/2024 Morbid (severe) obesity due to excess calories (ICD-10 - E66.01) 07/30/2024 Essential hypertension (ICD-10 - I10) 09/01/2024 Fibromyalgia (ICD-10 - M79.7) 08/31/2024 Essential hypertension (ICD-10 - I10) 01/14/2025 Trochanteric bursitis, right hip (ICD-10 - M70.61) 04/07/2024 Heart failure, unspecified (ICD-10 - I50.9) 07/24/2024 Heart failure, unspecified (ICD-10 - I50.9) 02/12/2025 Fibromyalgia (ICD-10 - M79.7) 04/07/2024 Bipolar disorder, in full remission, most recent episode mixed (ICD-10 - F31.78) 03/06/2024 Encounter for screening mammogram for malignant neoplasm of breast (ICD-10 - Z12.31) 07/30/2024 Heart failure, unspecified (ICD-10 - I50.9) 07/30/2024 Bipolar disorder, in full remission, most recent episode mixed (ICD-10 - F31.78) 08/31/2024 Heart failure, unspecified (ICD-10 - I50.9) 08/31/2024 Bipolar disorder, in full remission, most recent episode mixed (ICD-10 - F31.78) 09/01/2024 Heart failure, unspecified (ICD-10 - I50.9) 10/02/2024 Fibromyalgia (ICD-10 - M79.7) 11/25/2024 Heart failure, unspecified (ICD-10 - I50.9) 11/25/2024 Fibromyalgia (ICD-10 - M79.7) 10/02/2024 Heart failure, unspecified (ICD-10 - I50.9) 08/31/2024 Obstructive sleep apnea (ICD-10 - G47.33) 09/01/2024 Essential hypertension (ICD-10 - I10) 07/30/2024 Obstructive sleep apnea (ICD-10 - G47.33) 03/06/2024 Overactive bladder (ICD-10 - N32.81) 10/02/2024 Essential hypertension (ICD-10 - I10) 02/12/2025 Trochanteric bursitis, right hip (ICD-10 - M70.61) 04/07/2024 Obstructive sleep apnea (ICD-10 - G47.33) 11/25/2024 Essential hypertension (ICD-10 - I10) 01/14/2025 Heart failure, unspecified (ICD-10 - I50.9) 07/24/2024 Essential hypertension (ICD-10 - I10) 04/07/2024 Morbid (severe) obesity due to excess calories (ICD-10 - E66.01) 07/30/2024 Morbid (severe) obesity due to excess calories (ICD-10 - E66.01) 08/31/2024 Morbid (severe) obesity due to excess calories (ICD-10 - E66.01) 09/01/2024 Bipolar disorder, in full remission, most recent episode mixed (ICD-10 - F31.78) 10/02/2024 Bipolar disorder, in full remission, most recent episode mixed (ICD-10 - F31.78) 11/25/2024 Bipolar disorder, in full remission, most recent episode mixed (ICD-10 - F31.78) 02/12/2025 Heart failure, unspecified (ICD-10 - I50.9) 07/24/2024 Bipolar disorder, in full remission, most recent episode mixed (ICD-10 - F31.78) 01/14/2025 Essential hypertension (ICD-10 - I10) 07/24/2024 Obstructive sleep apnea (ICD-10 - G47.33) 09/01/2024 Obstructive sleep apnea (ICD-10 - G47.33) 08/31/2024 Mixed hyperlipidemia (ICD-10 - E78.2) 10/02/2024 Obstructive sleep apnea (ICD-10 - G47.33) 01/14/2025 Bipolar disorder, in full remission, most recent episode mixed (ICD-10 - F31.78) 04/07/2024 Mixed hyperlipidemia (ICD-10 - E78.2) 07/30/2024 Mixed hyperlipidemia (ICD-10 - E78.2) 02/12/2025 Essential hypertension (ICD-10 - I10) 11/25/2024 Obstructive sleep apnea (ICD-10 - G47.33) 02/12/2025 Bipolar disorder, in full remission, most recent episode mixed (ICD-10 - F31.78) 09/01/2024 Mixed hyperlipidemia (ICD-10 - E78.2) 10/02/2024 Mixed hyperlipidemia (ICD-10 - E78.2) 07/24/2024 Morbid (severe) obesity due to excess calories (ICD-10 - E66.01) 08/31/2024 Elevated sedimentation rate (ICD-10 - R70.0) 11/25/2024 Mixed hyperlipidemia (ICD-10 - E78.2) 01/14/2025 Obstructive sleep apnea (ICD-10 - G47.33) 07/30/2024 Elevated sedimentation rate (ICD-10 - R70.0) 04/07/2024 Elevated sedimentation rate (ICD-10 - R70.0) 02/12/2025 Obstructive sleep apnea (ICD-10 - G47.33) 07/30/2024 Fibromyalgia (ICD-10 - M79.7) 07/24/2024 Mixed hyperlipidemia (ICD-10 - E78.2) 11/25/2024 Elevated sedimentation rate (ICD-10 - R70.0) 01/14/2025 Mixed hyperlipidemia (ICD-10 - E78.2) 08/31/2024 Fibromyalgia (ICD-10 - M79.7) 10/02/2024 Elevated sedimentation rate (ICD-10 - R70.0) 04/07/2024 Fibromyalgia (ICD-10 - M79.7) 09/01/2024 Elevated sedimentation rate (ICD-10 - R70.0) 07/24/2024 Elevated sedimentation rate (ICD-10 - R70.0) 07/30/2024 Primary insomnia (ICD-10 - F51.01) 04/07/2024 Primary insomnia (ICD-10 - F51.01) 01/14/2025 Elevated sedimentation rate (ICD-10 - R70.0) 08/31/2024 Primary insomnia (ICD-10 - F51.01) 09/01/2024 Primary insomnia (ICD-10 - F51.01) 02/12/2025 Mixed hyperlipidemia (ICD-10 - E78.2) 10/02/2024 Primary insomnia (ICD-10 - F51.01) 11/25/2024 Primary insomnia (ICD-10 - F51.01) 09/01/2024 Grade II hemorrhoids (ICD-10 - K64.1) 10/02/2024 Grade II hemorrhoids (ICD-10 - K64.1) 08/31/2024 Grade II hemorrhoids (ICD-10 - K64.1) 11/25/2024 Grade II hemorrhoids (ICD-10 - K64.1) 07/24/2024 Primary insomnia (ICD-10 - F51.01) 02/12/2025 Elevated sedimentation rate (ICD-10 - R70.0) 07/30/2024 Grade II hemorrhoids (ICD-10 - K64.1) 04/07/2024 Grade II hemorrhoids (ICD-10 - K64.1) 01/14/2025 Primary insomnia (ICD-10 - F51.01) 02/12/2025 Primary insomnia (ICD-10 - F51.01) 10/02/2024 Other low back pain (ICD-10 - M54.59) 01/14/2025 Grade II hemorrhoids (ICD-10 - K64.1) 11/25/2024 Other low back pain (ICD-10 - M54.59) 07/24/2024 Grade II hemorrhoids (ICD-10 - K64.1) 04/07/2024 Laboratory tests ordered as part of a complete physical exam (CPE) (ICD-10 - Z00.00) 10/02/2024 Right hand pain (ICD-10 - M79.641) 11/25/2024 Right hand pain (ICD-10 - M79.641) 02/12/2025 Grade II hemorrhoids (ICD-10 - K64.1) 10/02/2024 Left hand pain (ICD-10 - M79.642) 11/25/2024 Left hand pain (ICD-10 - M79.642) 03/06/2024 Other This chart has been transcribed by a computerized dictation system. There are likely to be multiple running instructor inaccuracies despite chart review. 04/07/2024 Other This chart has been transcribed by a computerized dictation system. There are likely to be multiple running instructor inaccuracies despite chart review. 07/30/2024 Other This chart has been transcribed by a computerized dictation system. There are likely to be multiple running instructor inaccuracies despite chart review. 08/31/2024 Other This chart has been transcribed by a computerized dictation system. There are likely to be multiple running instructor inaccuracies despite chart review. 09/01/2024 Other This chart has been transcribed by a computerized dictation system. There are likely to be multiple running instructor inaccuracies despite chart review. 10/02/2024 Other This chart has been transcribed by a computerized dictation system. There are likely to be multiple running instructor inaccuracies despite chart review. 11/25/2024 Other This chart has been transcribed by a computerized dictation system. There are likely to be multiple running instructor inaccuracies despite chart review. 01/14/2025 Other This chart has been transcribed by a computerized dictation system. There are likely to be multiple running instructor inaccuracies despite chart review. 02/12/2025 Other This chart has been transcribed by a computerized dictation system. There are likely to be multiple running instructor inaccuracies despite chart review. 02/27/2024 Other This chart has been transcribed by a computerized dictation system. There are likely to be multiple running instructor inaccuracies despite chart review. 07/24/2024 Other This chart has been transcribed by a computerized dictation system. There are likely to be multiple running instructor inaccuracies despite chart review. 06/05/2024 Other This chart has been transcribed by a computerized dictation system. There are likely to be multiple running instructor inaccuracies despite chart review. PLAN OF TREATMENT Pending Test Test Name Order Date X ray : Foot, right 09/26/2022 X ray : Hand, left 10/02/2024 X ray : Hand, right 10/02/2024 MAMMOGRAM, SCREENING 11/21/2023 MAMMOGRAM, SCREENING 11/16/2022 X ray : LS Spine 10/02/2024 GUAIAC, SINGLE SPECIMEN 11/21/2023 SOTOMAYOR AND SENIOR ENGINEERING TECHNICIAN ANTIBODIES 05/08/2023 CYTOPATHOLOGY (HEEL COVER SPLITTER) 11/21/2023 25OH VITAMIN D 06/18/2022 CBC (COMPLETE BLOOD COUNT) WITH DIFF COMPREHENSIVE METABOLIC PANEL 06/18/2022 HPV, HIGH RISK 11/21/2023 LIPID PANEL 06/18/2022 THYROID PANEL (TSH, FT4) 06/18/2022 URINALYSIS, COMPLETE 06/18/2022 Ankle Min 3 Views Right 09/26/2022 Insurance Providers Payer Name Payer Address Payer Phone Subscriber Number Group Number Insured Name Patient Relationship to Insured Coverage Start Date Coverage End Date [address] [place] [address] [employer] [facility] [place] [id number] Sandra Oscar Self - patient is the insured MEDICAL (GENERAL) HISTORY Medical History History ICD Code Essential hypertension I10 Major depressive disorder with single ep isode, in full remission F32.5 Obstructive sleep apnea G47.33 Bipolar disorder, in full remission, mos t recent episode mixed F31.78 Surgical History Surgery Date(Month/Year) Partial hysterectomy Lap band Tonsillectomy
--- OUTSIDE RECORDS SUMMARY | 2025-02-16 12:25 | XMS_ITS ---
Author Organization [facility] Address [address] [place] [address] Care Team Providers Care Can Conveyor Feeder Name Role Phone Andre Ryan Primary Care Provider [phone] REASON FOR VISIT Refills MEDICATIONS Medication SIG (Take, Route, Frequency, Duration) Notes Start Date End Date Status Fanapt 6 MG 1 tablet Orally Twice a day for 90 Days Active Encounters Encounter Location Date Provider Diagnosis [facility] [address] [place] [address] 02/12/2025 Andre Ryan Bipolar disorder, in full remission, most recent episode mixed F31.78 ASSESSMENTS Encounter Date Diagnosis Assessment Notes Treatment Notes Treatment Clinical Notes 02/12/2025 Bipolar disorder, in full remission, most recent episode mixed (ICD-10 - F31.78) PLAN OF TREATMENT Medication Medication Name Sig Start Date Stop Date Notes Fanapt 6 MG 1 tablet Orally Twice a day for 90 Days
--- OUTSIDE RECORDS SUMMARY | 2025-02-16 12:25 | XMS_ITS | Patient Health Record ---
Author Organization [facility] Address [address] [place], [place] [id number] Care Team Providers Care Wire Strander Name Role Phone [facility] Andre Primary Care Provider Raffy Schmid Unavailable [phone] Shane CANO, Amira Unavailable Unavailable Allergies Allergen (clinical drug ingredient) Drug/Non Drug Allergy documented on EMR Reaction Allergy Type Onset Date Status Penicillin rash Drug Allergy Active Reason For Referral No Information Medications Medication SIG (Take, Route, Frequency, Duration) Notes Start Date End Date Status Gabapentin 300 MG 1 tablet Oral 3 time s a day for 30 days Active Metoprolol Succinate 25 MG 1 capsule Ora lly Once a day for 30 day(s) Active Sertraline HCl 200 MG 1 capsule Orally O nce a day Active Spironolactone 25 MG TAKE 1/2 TABLET JUAN LY (12.5 MG TOTAL) BY MOUTH Oral for 90 Active traZODone HCl 50 MG TAKE 1 TABLET BY DIAZ TH EVERY DAY AT BEDTIME as NEEDED FOR 30 DAYS for 90 days Active Entresto 24-26 MG 1 tablet Orally Twic e a day for 30 day(s) Active Vitamin D3 25 MCG (1000 UT) 1 capsule Or ally Once a day for 30 day(s) Active Fanapt 6 MG 1 tablet Orally Twic e a day for 30 day(s) Active Social History Tobacco Use: Social History Observation Description Date Details (start date - stop date) Current Smoker NA - NA Tobacco Question Answer Notes Are you a: current smoker How often do you smoke cigarettes? some days, bu t not every day How many cigarettes a day do you smoke? 5 or les s Problems Problem Type SNOMED Code ICD Code Onset Dates Problem Status W/U Status Risk Notes Problem Obstructive sleep apnea syndrome (disorder) (12481239) Obstructive sleep apnea (adult) (pediatric) (G47.33) Active confirmed Problem 1813858 Primary insomnia (F51.01) Active confirmed Problem 706409899860 Excessive daytime sleepiness (G47.19) Active confirmed Problem 415653154 Obesity (BMI 30-39.9) (E66.9) Active confirmed Problem 797086286 Chronic systolic congestive heart failure (I50.22) Active confirmed Problem 14133199 Bipolar affective disorder, remission status unspecified (F31.9) Active confirmed Problem 63407248 ADORE (obstructive sleep apnea) (G47.33) Active confirmed Problem 25451516 Primary hypertension (I10) Active confirmed Problem 33896312 Depression, unspecified depression type (F32.A) Active confirmed Vital Signs Heart Rate 72 /min 04/20/2024 Respiratory Rate 16 /min 04/20/2024 Blood pressure diastolic 72 mm Hg 04/20/2024 Height 63 in 04/20/2024 Blood pressure systolic 106 mm Hg 04/20/2024 Weight 211 lbs 04/20/2024 BMI 37.37 kg/m2 04/20/2024 Encounters Encounter Location Date Provider Diagnosis [facility] [address] [id number] 04/20/2024 Akbar Albakour Obesity (BMI 30-39.9) E66.9 ; Obstructive sleep apnea (adult) (pediatric) G47.33 ; Primary hypertension I10 ; Excessive daytime sleepiness G47.19 and Hypoxemia R09.02 [facility] [address] [id number] 04/27/2024 Akbar Albakour Primary insomnia F51.01 [facility] [address] [id number] 10/21/[address] [facility] [address] [id number] 12/07/2024 Akbar Albakour [facility] [address] [id number] 12/15/2024 Akbar Albakour Assessments Encounter Date Diagnosis (ICD Code) Assessment Notes Treatment Notes Treatment Clinical Notes Section Notes 04/20/2024 Obesity (BMI 30-39.9) (ICD-10 - [...] refer her to do CPAP titration at [facility], I changed her CPAP to auto CPAP 10-20 04/20/2024 Excessive daytime sleepiness (ICD-10 - G47.19) Improved with CPAP therapy 04/20/2024 Hypoxemia (ICD-10 - R09.02) Overnight pulse oximetry on 11/14/2022: oxygen saturation was above 90 % for 99.8% of the study Plan Of Treatment Future Test Test Name Order Date Home sleep study 01/04/2022 SLEEP STUDY-CPAP Titration 05/18/2024 Insurance Providers Payer Name Payer Address Payer Phone Subscriber Number Group Number Insured Name Patient Relationship to Insured Coverage Start Date Coverage End Date [employer], [facility] [address] [place] [address] [id number] GmSandra parra Self - patient is the insured Medical (General) History Medical History History ICD Code Primary hypertension I10 Depression, unspecified depression type F32.A Bipolar affective disorder, remission st atus unspecified F31.9 Obstructive sleep apnea (adult) (pediatr ic) G47.33 Chronic systolic congestive heart failur e I50.22 EF 35-40 % on echo in Jul 2022 Surgical History Surgery Date(Month/Year) Tonsillectomy Hysterectomy Lap band surgery
--- OUTSIDE RECORDS SUMMARY | 2025-02-16 12:25 | XMS_ITS ---
Author Organization [facility] Address [address] [place], [place] [id number] Care Team Providers Care Tractor Sweeper Operator Name Role Phone Andre Ryan Primary Care Provider Raffy Schmid Unavailable [phone] Shane CANO, Amira Unavailable Unavailable REASON FOR VISIT 6 Month Follow Up ADORE-CARD Encounters Encounter Location Date Provider Diagnosis [facility] [address] [place], [place] [phone] 10/21/2024 Raffy Green Plan Of Treatment No Information Progress Notes * Sandra CALDERONDOB:1975 (49 yo F)Acc No.[id number]:10/21/2024 F/U [place] Patient:Sandra MALDONADO Provider:?Raffy Green MD :1975???Age:49 Y???Sex:Female D ate:10/21/2024 Address:[address] [facility] Pcp:Andre Ryan Subjective: * Chief Complaints: * ???1. 6 Month Follow Up ADORE- CARD. * Medical History:? Objective: * Vitals:? Assessment: Plan: * Treatment: * Images: * Electronic signature of Sweta Green MD on 02/16/2025 at 12:24 PM EDT Sign off status: Pending * Provider:?Raffy Green MD Date:? Generated for Aleksey grant/Kirill/Sherlyn on:?02/16/2025 12:24 PM EDT
--- OUTSIDE RECORDS SUMMARY | 2025-02-16 12:25 | XMS_ITS | Referral Summary ---
Author Organization [facility] Address [address] [place] [address] Care Team Providers Care Dip Guider Stoves Name Role Phone Andre Ryan Primary Care Provider [phone] Allergies Active Allergy Reactions Criticality Noted Date Comments Penicillins Rash 11/12/2022 Perflutren Unknown 12/05/2022 Medications * This document contains information received from the source organization and may not represent a complete record from that organization. Vitamin D3 25 mcg (1,000 unit) capsule Take 1 capsule by mouth once a day. 11/19/2022 Active cyanocobalamin (VITAMIN B12) 500 mcg tablet Take 500 mcg by mouth once a day. 10/29/2022 Active metoprolol succinate XL (TOPROL XL) 25 mg tablet Take 25 mg by mouth once a day. 10/09/2022 Active sertraline (ZOLOFT) 100 mg tablet Take 200 mg by mouth once a day. 11/04/2022 Active Entresto 24-26 mg per tablet Take 1 tablet by mouth 2 times a day. 11/26/2022 Active spironolactone (ALDACTONE) 25 mg tabletIndicatio ns:Chronic systolic congestive heart failure (HCC) Take 0.5 tablets (12.5 mg total) by mouth once a day. 45 tablet 3 12/05/2022 Active gabapentin (NEURONTIN) 300 mg capsule Take 1 capsule by mouth every 8 (eight) hours. Active Active Problems Problem Noted Date Diagnosed Date Impulse Control Disorder 07/02/2009 Social History Tobacco Use Types Packs/Day Years Used Date Smoking Tobacco: Former Cigarettes Passive Smoke Exposure: Never Smokeless Tobacco: Never Tobacco Cessation:Counseling Given: Not Answered Alcohol Use Standard Drinks/Week Comments Not Currently 0 (1 standard drink = 0.6 oz pur e alcohol) Comments No Sex and Gender Information Value Date Recorded Sex Assigned at Female 07/26/2021 11:28 AM EDT Legal Sex Female 6:12 AM EDT Gender Identity Female 07/26/2021 11:28 AM EDT Sexual Orientation Straight 07/26/2021 11 :28 AM EDT Last Filed Vital Signs Vital Sign Reading Time Taken Comments Blood Pressure 115/85 06/06/2024 12:25 PM EDT Pulse 65 06/06/2024 12:25 PM EDT Temperature 36.6 ??C (97.8 ??F) 06/06/2024 12:25 PM E DT Respiratory Rate 15 06/06/2024 12:25 PM EDT Oxygen Saturation 99% 06/06/2024 12:25 PM EDT Inhaled Oxygen Concentration - - Weight 96 kg (211 lb 9.6 oz) 06/06/2024 12:25 PM EDT Height 156.2 cm (5' 1.5 ) 12/05/2022 11:22 AM ES T Body Mass Index 39.33 12/05/2022 11:22 AM EST Plan of Treatment Not on file Procedures * Due to [place] [employer] law, this organization might not be sharing negative HIV tests. Procedure Name Priority Date/Time Associated Diagnosis Comments [facility] SCREENING DIGITAL MAMMO Routine 05/30/2018 8:37 AM EDT from Last 3 Months or Most Recently Relevant to Health Maintenance Results * Due to [place] [employer] law, this organization might not be sharing negative HIV tests. * [facility] Screening Digital Mammogram (05/30/2018 8:37 AM EDT) Anatomical Region Laterality Modality Breast Mammography 05/30/2018 8:38 AM EDT Narrative 06/03/2018 1:45 PM EDT ? DEPARTMENT OF RADIOLOGY Patient: JUAN GONZALEZ ? Unit #: [id number] Ordering MD: ILIA LOPEZ FEDERAL MEDIATOR ? : 1975 Procedure: Digital Mammo Screen ? Age: 43 Location: MAMMO ? Exam Date: 05/30/18 Status: REG CLI ? Room/Bed: Primary MD: ILIA LOPEZ FEDERAL MEDIATOR ?Patient ?Order: [id number] Additional Copy: ??ILIA LOPEZ NP - #[id number] - DIGSCRMAM BILATERAL DIGITAL TOMOSYNTHESIS SCREENING MAMMOGRAM WITH CAD: 05/30/2018 CLINICAL: Routine Screening. Digital 2D mammogram, synthesized 2D views and 3D Tomosynthesis views were obtained. Current study was also evaluated with a Computer Aided Detection (CAD) system. Comparison is made to exam dated: ??01/11/2014 mammogram - [facility]. The tissue of the right breast is heterogeneously dense, which may obscure small masses. There are scattered areas of fibroglandular density in the left breast. This global asymmetry of breast tissue is not significantly changed, although there has ??been some mild fatty replacement since the prior mammogram. No significant masses, calcifications, or other findings are seen ??in either breast. IMPRESSION: NEGATIVE There is no mammographic evidence of malignancy. A 1 year screening mammogram is recommended. This exam was interpreted at [place]. ?? POI: [place]. Electronically signed by: Cherie Carr M.D. cp/:06/03/2018 10:38:29 letter sent: A-2 Normal Benign Mammogram BI-RADS: 1 Negative ?? [facility] Procedure Note Cherie Carr - 08/26/2023 DEPARTMENTOF RADIOLOGY [place] t: JUAN GONZALEZ Unit #:[id number] Ordering MD: ILIA LOPEZ NP :1975 Procedure: Digital Mammo Screen Age:43 Location: MAMMO ExamDate: 05/30/18 Status: REG CLIRoom/Bed: Primary MD: ILIA LOPEZ NP PatientAcct #: [id number] Order:[id number] Additional Copy: ILIA LOPEZ NP - #[id number] - DIGSCRMAM BILATERAL DIGITAL TOMOSYNTHESIS SCREENING MAMMOGRAM WITH CAD: 05/30/2018 CLINICAL: Routine Screening. Digital 2D mammogram, synthesized 2D views and 3D Tomosynthesis views were obtained. Current study was also evaluated with a Computer Aided Detection (CAD) system. Comparison is made to exam dated: 01/11/2014 mammogram - [facility]. The tissue of the right breast is heterogeneously dense, which may obscure small masses. There are scattered areas of fibroglandular density in the left breast. This global asymmetry of breast tissue is not significantly changed, although there has been some mild fatty replacement since the prior mammogram. No significant masses, calcifications, or other findings are seen in either breast. IMPRESSION: NEGATIVE There is no mammographic evidence of malignancy. A 1 year screening mammogram is recommended. This exam was interpreted at [place]. POI: [place]. Electronically signed by: Cherie Carr M.D. cp/:06/03/2018 10:38:29 letter sent: A-2 Normal Benign Mammogram BI-RADS: 1 Negative [facility] Ilia Lopez NP IMG BI PROCEDURES Final Re sult from Last 3 Months or Most Recently Relevant to Health Maintenance Insurance [employer] [facility] [place] [address] [place] [address] Care Teams Dip Guider Stoves Relationship Specialty Start Date End Date Andre Ryan PCP - General Internal Medicine 12/05/22
--- OUTSIDE RECORDS SUMMARY | 2025-02-16 12:25 | XMS_ITS | Encounter Summary ---
Author Organization [facility] Address [address] [place] [address] Care Team Providers Care Production Cloth Cutter Name Role Phone Andre Ryan Primary Care Provider Encounter Details Date Type Department Care Team (Late st Contact Info) Description 09/14/2021 Orders Only [facility] [address] [place] [phone] Tyson Swanson MD [address] [place] [id number] Social History Tobacco Use Types Packs/Day Years Used Date Smoking Tobacco: Never Assessed Comments Unknown Sex and Gender Information Value Date Recorded Sex Assigned at Female 07/26/2021 11:28 AM EDT Legal Sex Female 6:12 AM EDT Gender Identity Female 07/26/2021 11:28 AM EDT Sexual Orientation Straight 07/26/2021 11 :28 AM EDT documented as of this encounter Plan of Treatment Not on file documented as of this encounter Visit Diagnoses Not on filedocumented in this encounter Additional Health Concerns Infection Onset Date Last Indicated Resolved Time R/O Respiratory Virus Infection 06/06/2024 06/06/2024 1:20 PM EDT R/O Influenza 06/06/2024 06/06/2024 06/06/2024 1:2 0 PM EDT COVID-19 - Suspected infection 06/06/2024 06/06/2024 06/06/2024 1:20 PM EDT documented as of this encounter Care Teams Production Cloth Cutter Relationship Specialty Start Date End Date Andre Ryan PCP - General Internal Medicine 12/05/22 documented as of this encounter
--- OUTSIDE RECORDS SUMMARY | 2025-02-16 12:25 | XMS_ITS ---
Author Organization [facility] Address [address] [place], [place] [id number] Care Team Providers Care Special Education Para Professional Name Role Phone Andre Ryan Primary Care Provider Raffy Schmid Unavailable [phone] Shane CANO, Amira Unavailable Unavailable REASON FOR VISIT FU ADORE Encounters Encounter Location Date Provider Diagnosis [facility] [address] [place], [place] [id number] 12/28/2024 Raffy Green Plan Of Treatment No Information Progress Notes * Sandra CALDERONDOB:1975 (49 yo F)Acc No.[id number]:12/28/2024 F/U [place] Patient:?Sandra CALDERON Provider:?Raffy Green MD :1975???Age:49 Y???Sex:Female D ate:12/28/2024 Address:[address] [place], [id number] Pcp:Andre yRan Subjective: * Chief Complaints: * ???1. FU ADORE. * Medical History:? Objective: * Vitals:? Assessment: Plan: * Treatment: * Images: * Electronic signature of Sweta Green MD on 02/16/2025 at 12:24 PM EDT Sign off status: Pending * Provider:?Raffy Green MD Date:? Generated for Billyi juanita/Kirill/eTransmitting on:?02/16/2025 12:24 PM EDT
--- OUTSIDE RECORDS SUMMARY | 2025-02-16 12:25 | XMS_ITS | Clinical Summary ---
Author Organization [facility] Address [address] [place] [address] Care Team Providers Care Appliances Sample Maker Name Role Phone Andre Ryan Primary Care Provider [phone] Allergies Active Allergy Reactions Criticality Noted Date [...] Date Diagnosed Date Impulse Control Disorder 07/02/2009 Family History Relation Name Status Comments Maternal Grandmother History of amyloid, type unknown. History of a pacemaker. Social History Tobacco Use Types Packs/Day Years [...] 12/05/2022 11:22 AM EST Plan of Treatment Health Maintenance Due Date Last Done Comments Cologuard 1975 Colon Cancer Screening 1975 Colonoscopy 1975 FOBT / Fit Test 1975 HIV Screening 1975 Hepatitis C Screening 1975 Sigmoidoscopy 1974 Hepatitis B Vaccines (1 of 3 - 19+ 3-dose series) 1993 DTaP,Tdap,and Td Vaccines (1 - Tdap) 1996 Mammogram 05/30/2020 05/30/2018 CT Lung Cancer Screening (Baseline) 2024 Pneumococcal Vaccine: 50+ Ye ars (1 of 1 - PCV) 2024 Zoster Vaccines (1 of 2) 2024 COVID-19 Vaccine (3 - 2023- season) 2024, 11/02/2021 Alcohol/Substance Use Screening 09/30/2024 Depression Screening and Follow-Up 09/30/2024 Social Drivers of Health Annual Screening 09/30/2024 Influenza Vaccine (Season Ended) 2025 RSV Vaccine (60+ years old a nd patients) (1 - 1-dose 75+ series) 2049 Procedures * Due to [place] [employer] law, this organization might not be sharing negative HIV tests. Procedure Name Priority Date/Time Associated Diagnosis Comments [facility] SCREENING DIGITAL MAMMO Routine 05/30/2018 8:37 AM EDT from Last 3 Months or Most Recently Relevant to Health Maintenance Results * Due to [place] [employer] law, this organization might not be sharing negative HIV tests. * [facility] Screening Digital Mammogram (05/30/2018 8:37 AM EDT) Anatomical Region Laterality Modality Breast Mammography 05/30/2018 8:38 AM EDT Narrative 06/03/2018 1:45 PM EDT ? DEPARTMENT OF RADIOLOGY Patient: JUAN GONZALEZ ? Unit #: [id number] Ordering MD: ILIA LOPEZ CLOTH FINISHING RANGE TENDER ? : 1975 Procedure: Digital Mammo Screen ? Age: 43 Location: MAMMO ? Exam Date: 05/30/18 Status: REG CLI ? Room/Bed: Primary MD: ILIA LOPEZ NP ?Patient ?Order: DIGSCRMAM Additional Copy: ??ILIA LOPEZ NP - #[id number] - DIGSCRMAM BILATERAL DIGITAL TOMOSYNTHESIS SCREENING MAMMOGRAM WITH CAD: 05/30/2018 CLINICAL: Routine Screening. Digital 2D mammogram, synthesized 2D views and 3D Tomosynthesis views were obtained. Current study was also evaluated with a Computer Aided Detection (CAD) system. Comparison is made to exam dated: ??01/11/2014 mammogram - [facility]. The tissue of the [...] is recommended. This exam was interpreted at [facility]. ?? POI: [facility]. Electronically signed by: Cherie Carr M.D. cp/:06/03/2018 10:38:29 letter sent: A-2 Normal Benign Mammogram BI-RADS: 1 Negative ?? [facility] Procedure Note Cherie Carr - 08/26/2023 DEPARTMENTOF RADIOLOGY [place] t: JUAN GONZALEZ Unit #:[id number] Ordering MD: ILIA LOPEZ NP :1975 Procedure: Digital Mammo Screen Age:43 Location: MAMMO ExamDate: 05/30/18 Status: [facility]/Bed: Primary MD: ILIA LOPEZ NP PatientAcct #: [id number] [facility] Additional Copy: ILIA LOPEZ NP - #[id number] - DIGSCRMAM BILATERAL DIGITAL TOMOSYNTHESIS SCREENING MAMMOGRAM WITH CAD: 05/30/2018 CLINICAL: Routine Screening. Digital 2D mammogram, synthesized 2D views and 3D Tomosynthesis views were obtained. Current study was also evaluated with a Computer Aided Detection (CAD) system. Comparison is made to exam dated: 01/11/2014 mammogram - [facility]. The tissue of the [...] is recommended. This exam was interpreted at [facility]. POI: [facility]. Electronically signed by: Cherie Carr M.D. cp/:06/03/2018 10:38:29 letter sent: A-2 Normal Benign Mammogram BI-RADS: 1 Negative GEOVANNA Ilia Lopez NP IMG BI PROCEDURES Final Re sult from Last 3 Months or Most Recently Relevant to Health Maintenance Insurance [facility] MEDICAID [facility] Care Teams Appliances Sample Maker Relationship Specialty Start Date End Date Andre Ryan PCP - General Internal Medicine 12/05/22
--- OUTSIDE RECORDS SUMMARY | 2025-02-16 12:25 | XMS_ITS ---
Author Organization [facility] Address [address] [place] [address] Care Team Providers Care Patrol Captain Name Role Phone Andre Ryan Primary Care Provider REASON FOR VISIT Med not covered MEDICATIONS Medication SIG (Take, Route, Fr equency, Duration) Notes Start Date End Date Status Phentermine HCl 37.5 MG 1 tablet before breakfast Orally Once a day for 30 days 01/18/2025 Active Topiramate 25 MG 1 tablet Orally Once a day for 30 day(s) 01/18/2025 Active Encounters Encounter Location Date Provider Diagnosis [facility] [address] [place] [address] 01/19/20 Andre Ryan PLAN OF TREATMENT Medication Medication Name Sig Start Date Stop Date Notes Phentermine HCl 37.5 MG 1 tablet before breakfast Orally Once a day for 30 days 01/18/2025 Topiramate 25 MG 1 tablet Orally Once a day for 30 day(s) 01/18/2025
--- OUTSIDE RECORDS SUMMARY | 2025-02-16 12:25 | XMS_ITS ---
Author Organization [facility] Address [address] [place] [address] Care Team Providers Care Supervisor Post Wave Name Role Phone Andre Ryan Primary Care Provider ALLERGIES Allergen (clinical drug ingredient) Drug/Non Drug Allergy documented on EMR Reaction Allergy Type Onset Date Status Penicillin Unknown Drug Allergy Active REASON FOR VISIT (IN OFFICE), Follow Up MEDICATIONS Medication SIG (Take, Route, Frequency, Duration) Notes Start Date End Date Status Pregabalin 100 MG 1 capsule Orally Twi ce a day for 90 Days Active Hydrocortisone (Perianal) 2.5 % 1 application Externally Twice a day for 30 days Active Zolpidem Tartrate 10 MG 1 tablet at bedt elbert as needed Orally Once a day for 30 days Active Zepbound 2.5 MG/0.5ML 2.5 mg Subcutaneou s once a week for 30 day(s) Active Fanapt 6 MG 1 tablet Orally Twic e a day Active Sertraline HCl 100 MG 3 tablet Orally On ce a day for 30 days Active CPAP Machine . 8 cm of H2O with hea deric humidifier Intranasally Daily Active Metoprolol Succinate ER 25 MG 1 tablet Orally Once a day Active Pregabalin 100 MG TAKE 1 CAPSULE BY [facility] TWICE A DAY FOR 30 DAYS for 30 02/08/2025 Active CPAP Supplies - Use as directed . Daily Active Topiramate 25 MG 1 tablet Orally Once a day for 30 day(s) 01/18/2025 Active Phentermine HCl 37.5 MG 1 tablet before breakfast Orally Once a day for 30 days 01/18/2025 Active B-12 1000 MCG DISSOLVE 1 UNDER TON GABE TWICE A DAY DIRECTED FOR 30 DAYS 90 for 90 Active oxyBUTYnin Chloride ER 10 MG TAKE 1 TABLET BY MOUTH EVERY DAY for 90 Active Zolpidem Tartrate 10 MG TAKE 1 TABLET BY MOUTH EVERY DAY AT BEDTIME NEEDED FOR 30 DAYS for 30 02/08/2025 Active Spironolactone 25 MG TAKE 1 TABLET BY MO UTH EVERY DAY FOR 90 DAYS for 90 Active Vitamin D3 50 MCG (1999 UT) TAKE 1 CAPSU LE BY MOUTH EVERY DAY FOR 30 DAYS for 90 Active Entresto 24-26 MG 1 tablet Orally once a day for 90 Days Active SOCIAL HISTORY Tobacco Use: Social History Observation Description Date Details (start date - stop date) Former Smoker NA - NA Sex Assigned At : Social History Observation Description Sex Assigned At Unknown Tobacco Use/Smoking Question Answer Notes Are you a former smoker Encounters Encounter Location Date Provider Diagnosis [facility] [address] 02/12/2025 Andre Ryan Morbid (severe) obes ity [...] Notes Treatment Notes Treatment Clinical Notes 02/12/2025 Morbid (severe) obesity due to excess calories (ICD-10 - E66.01) 02/12/2025 Fibromyalgia (ICD-10 - M79.7) 02/12/2025 Trochanteric bursitis, right hip (ICD-10 - M70.61) 02/12/2025 Heart failure, unspecified (ICD-10 - I50.9) 02/12/2025 Essential hypertension (ICD-10 - I10) 02/12/2025 Bipolar disorder, in full remission, most recent episode mixed (ICD-10 - F31.78) 02/12/2025 Obstructive sleep apnea (ICD-10 - G47.33) 02/12/2025 Mixed hyperlipidemia (ICD-10 - E78.2) 02/12/2025 Elevated sedimentation rate (ICD-10 - R70.0) 02/12/2025 Primary insomnia (ICD-10 - F51.01) 02/12/2025 Grade II hemorrhoids (ICD-10 - K64.1) 02/12/2025 Other This chart has been transcribed by a computerized dictation system. There are likely to be multiple manager strategic alliances inaccuracies despite chart review. PLAN OF TREATMENT Medication Medication Name Sig Start Date Stop Date Notes Pregabalin 100 MG 1 capsule Orally Twi ce a day for 90 Days Hydrocortisone (Perianal) 2. 5 % 1 application Externally Twice a day for 30 days Zolpidem Tartrate 10 MG 1 tablet at bedt elbert as needed Orally Once a day for 30 days Zepbound 2.5 MG/0.5ML 2.5 mg Subcutaneou s once a week for 30 day(s) Fanapt 6 MG 1 tablet Orally Twice a day Sertraline HCl 100 MG 3 tablet Orally On ce a day for 30 days CPAP Machine . 8 cm of H2O with hea deric humidifier Intranasally Daily Metoprolol Succinate ER 25 MG 1 tablet Orally Once a day CPAP Supplies - Use as directed . Daily Treatment Notes Assessment Notes Other This chart has been transcribed by a computerized dictation system. There are likely to be multiple manager strategic alliances inaccuracies despite chart review. Progress Notes * Examination Category Sub-Category Detail Notes General Examination GENERAL APPEARANCE: in no ac [place] distress, well developed, well nourished, obese HEAD: normocephalic, atrau matic EYES: pupils equal, round, reactive to light and accommodation THROAT: clear, no erythema, uvula midline, no exudate NECK/THYROID: neck supple, no thyr omegaly, trachea midline, no carotid bruit HEART: no murmurs, regular rate and rhythm, S1, S2 normal LUNGS: clear to auscultatio n bilaterally ABDOMEN: soft, nontender, non distended, no organomegaly , bowel sounds present NEUROLOGIC: alert and oriented x 3, nonfocal,lower extremity DTR 2+ bilateral SLR negative bilateral SKIN: no suspicious lesion s, warm and dry EXTREMITIES: no clubbing, cyanosi s, or edema PERIPHERAL PULSES: normal, 2+ throughou t MUSCULOSKELETAL: Palpation of left hi p local temperature normal, no effusion, full range of motion present, tenderness over right trochanteric bursa LYMPH NODES: no cervical, axillar y, supraclavicular or inguinal adenopathy PSYCH: cognitive function i ntact, mood/affect full range ORAL CAVITY: mucosa moist, no les ions, palate normal, tongue in midline, well papillated
== END 2025-02-16 11:36 | disposition home or self-care (01) ==
LOC: HO.HCS 11:08
PROVIDERS: PCP Internal Medicine; Visit Provider Internal Medicine
DX: I42.8 Other cardiomyopathies (principal); I44.7 Left bundle-branch block, unspecified; E66.01 Morbid (severe) obesity due to excess calories
CPT/HCPCS: 93010; 99214

== ENCOUNTER → 2025-02-16 11:07 | Outpatient (BNVA) | payer OTHER, SELFPAY | PROVIDERS: PCP Internal Medicine; Visit Provider Internal Medicine | DX: I42.9 Cardiomyopathy, unspecified (principal) | CPT/HCPCS: 93005 ==

== ENCOUNTER → 2025-07-22 23:59 | Outpatient (BNV) | payer SELFPAY ==
--- NOTE | 2025-08-01 15:48 | MHC.OFFVIS ---
Intake Visit Reasons: Remote device check- [employer] Allergies Penicillins Allergy (Intermediate, Verified 07/07/24 09:28) FEVER, hives Iodinated Contrast Media (IV Contrast Dye) Adverse Reaction (Severe, Verified 07/03/24 11:01) severe back pain perflutren Adverse Reaction (Severe, Verified 07/03/24 11:01) Back Pain PFSH Medical History COVID-19 Preoperative cardiovascular examination History of pacemaker (06/10/24) Pyelonephritis of right kidney (01/17/24) Bipolar disorder Hepatomegaly Steatosis, liver Liver fibrosis PTSD (post-traumatic stress disorder) Non-ischemic cardiomyopathy BMI 37.0-37.9, adult GERD (gastroesophageal reflux disease) Anxiety Depression Urinary tract infection CHF (congestive heart failure) Esophagitis determined by biopsy Cardiomyopathy Fibromyalgia Left bundle branch block Bipolar 1 disorder Sleep apnea HTN (hypertension) Morbid obesity Surgical History History of esophagogastroduodenoscopy (EGD) (02/04/24) Status post gastric banding S/P cardiac catheterization Hx of laparoscopic gastric banding Hx of hysterectomy Hx of tonsillectomy Family History Mother Hypertension Father COPD (chronic obstructive pulmonary disease) Clogged artery (heart) Sister Anxiety with depression Obesity Brother Arthritis Brother Obesity Sister No problems noted. Sister No problems noted. Daughter Anxiety with depression Daughter No problems noted. Social History Household Members: Family Housing: House Are you a primary hearing healthcare practitioner to a significant other at home: No Do you presently have visiting nurse or other home services: No Alcohol intake: current Alcohol intake frequency: holidays/special occasions only Comment: burning Patient Tobacco Use Status: Former Tobacco user Tobacco use type: Cigarette service: No Office Procedures Cardiac Device Check Cardiac Device Check Details: Date of service- 07/22/2025 ; Battery life >11 years; normal lead parameters; AP >9%; ACCESS RN >99%; no significant arrhythmias. Overall normal device function. [id number] Cardiac Device Interrogation, pacemaker Procedure code (CPT) selection complete Assessment & Plan Assessment & Plan (1) Cardiac resynchronization therapy pacemaker (OCTAVE BOARD ASSEMBLER-P) in place: Code(s): Z95.0 - Presence of cardiac pacemaker Category: Medical (2) Non-ischemic cardiomyopathy: Code(s): I42.8 - Other cardiomyopathies Category: Medical (3) LBBB (left bundle branch block): Code(s): I44.7 - Left bundle-branch block, unspecified Category: Medical Plan x Coding Level of Care Code Procedure Only Diagnoses Cardiac resynchronization therapy pacemaker (OCTAVE BOARD ASSEMBLER-P) in place Z95.0 Non-ischemic cardiomyopathy I42.8 LBBB (left bundle branch block) I44.7 CPT Codes Cardiac Device Check - Cardiac Device 12: [id number] Cardiac Device Interrogation, pacemaker ([id number])
== END ==
PROVIDERS: PCP Internal Medicine; Visit Provider Internal Medicine
DX: I42.8 Other cardiomyopathies (principal); Z95.0 Presence of cardiac pacemaker; I44.7 Left bundle-branch block, unspecified
CPT/HCPCS: 93294